=== PATIENT | female | born 1985 | race Caucasian/White ===

== ENCOUNTER 2017-10-14 01:24 | Emergency (ER) | payer OTHER, MEDICAID, SELFPAY | END 2017-10-14 04:27 | disposition home or self-care (01) | PROVIDERS: Emergency Provider Emergency Medicine; Family Provider Family Medicine; PCP Family Medicine; Visit Provider Emergency Medicine | DX: M79.601 Pain in right arm (principal) | CPT/HCPCS: 36415; 80048; 85025; 85379; 93971; 99058; 99284 ==

== ENCOUNTER 2017-10-14 15:19 | Emergency (ER) | payer OTHER, MEDICAID, SELFPAY | END 2017-10-14 18:41 | disposition home or self-care (01) | PROVIDERS: Emergency Provider Emergency Medicine; Family Provider Family Medicine; PCP Family Medicine; Visit Provider Emergency Medicine | DX: J18.1 Lobar pneumonia, unspecified organism (principal) | CPT/HCPCS: 36415; 71260; 71275; 80048; 81025; 82550; 85025; 85379; 93971; 96374; 96375; 99058; 99284; J1885; J2060 ==

== ENCOUNTER → 2018-03-28 10:26 | Outpatient (CLI) | payer OTHER, MEDICAID, SELFPAY ==
--- NOTE | 2018-03-28 | DI.US.S_ITS ---
PROCEDURE: US OB >= 14 WEEKS FETUS INDICATIONS: SIZING AND DATES OUTSIDE/PRIOR DATING DATA: Last menstrual period (LMP): 12/21/17 LMP-based estimated date of delivery ([place]): 09/27/17 First dating scan (date and location): 03/28/18 Estimated date of delivery ([place]) from first dating scan: 09/25/18 TECHNIQUE: Real-time scanning was performed of the fetus, with image documentation and biometric measurements. COMPARISON: [facility], , PELVIC COMPLETE, 07/19/2017, 14:23. FINDINGS: General: A single living intrauterine gestation is present. Presentation: Variable Placenta: Placental position is grossly within normal limits, without previa. Amniotic fluid index: Grossly within normal limits heart rate: 141 beats per minute. Maternal cervical canal: 3.1 cm long. Normal lower limit is 2.5 cm. biometrics: Biparietal diameter: 2.8 cm 14 weeks 6 days Head circumference: 9.9 cm 14 weeks 4 days Abdominal circumference: 8.2 cm 14 weeks 4 days Femur length: 1.2 cm 13 weeks 3 days Estimated gestational age from initial scan: not applicable. Composite gestational age from present scan: 14 weeks one days Estimated weight and percentile: Not obtained Measurement variability for biometric dating: +/- 7 days from 14 weeks to 15 weeks 6 days gestation, +/- 10 days from 16 weeks to 21 weeks 6 days gestation, +/- 2 weeks from 22 weeks to 27 weeks 6 days gestation, +/- 3 weeks for 28 weeks gestation or later. weight reference: 4500 g or EFW >90/95% is considered macrosomia or large for gestational age. EFW <10% is small for gestational age. EFW 5% or less is considered intra-uterine growth restriction. Anatomic survey: Neuro: Ventricles are non-dilated at less than 10 mm. Cisterna magna is normal at 3-11 mm. Cerebellum is normal in size and morphology. Nuchal skin fold: Normal at less than 6 mm between 14-21 weeks gestational age. Face: Nose and lips, facial profile are normal. Spine: No evidence for spina bifida. Heart: 4-chambered heart is present, with normal ventricular outflow tracts. Diaphragm: Diaphragm is intact. Stomach: Left-sided stomach is present. Kidneys: No hydronephrosis. Normal is less than 5 mm in 2nd trimester, less than 7 mm in 3rd trimester. Cord: 3-vessel cord has orthotopic insertion. Bladder: Normal in size. Extremities: All 4 extremities identified. IMPRESSION: 1. Single live intrauterine with ultrasound gestational age of 14 weeks 1 days, corresponding to ultrasound [place] of 09/25/18. 2. Followup imaging at 20-22 weeks for dates and anatomy. Dictated by: Dot Samuels M.D. on 03/28/2018 at 16:37 Approved by: Dot Samuels M.D. on 03/28/2018 at 16:43
[2018-03-28 12:11] LABS: Add Manual Diff / Slide Review NO; Basophils Percent Auto 0.2 % (0-2); Hematocrit 36.7 % (36-46); Hemoglobin 12.4 g/dL (12.0-16.0); Lymphocytes Percent Auto 20.7 % (25-40); Mean Corpuscular HGB Conc 33.7 % (30-36); Mean Corpuscular Hemoglobin 28.9 PG (26-34); Mean Corpuscular Volume 85.8 fL (80-100); Neutrophils Absolute Auto 8000 /uL (3000-5900); Neutrophils Percent Auto 71.1 % (50-75); Platelet Count 264 X10^3/uL (150-400); Red Blood Cell Count 4.28 X10^6/uL (4.0-5.2); White Blood Cell Count 11.3 X10^3/uL (4.5-11.0)
[2018-03-28 12:18] LABS: Hemoglobin A1C% w Est Avg Glu 5.5 % (4.0-6.0)
[2018-03-28 15:10] LABS: Hepatitis B Surface Antigen NEGATIVE s/c (NEGATIVE)
[2018-03-28 15:27] LABS: HIV 1 and 2 Antibody NEGATIVE (NEGATIVE); Hep C Virus Ab w/Reflex Quant NEGATIVE s/c (NEGATIVE)
[2018-04-03 13:35] LABS: Rapid Plasma Reagin NON-REACTIVE
== END ==
PROVIDERS: Visit Provider Nurse Practitioner Women's Health
DX: Z11.59 Encounter for screening for other viral diseases (principal); Z13.79 Encounter for other screening for genetic and chromosomal anomalies; Z3A.14 14 weeks gestation of pregnancy
CPT/HCPCS: 36415; 76811; 83036; 85025; 86592; 86703; 86762; 86803; 86850; 86900; 86901; 87340

== ENCOUNTER 2018-03-31 13:03 | Emergency (ER) | payer OTHER, MEDICAID, SELFPAY ==
[2018-03-31 13:05] VITALS: BP 105/60; PULSE 77; RESP 13; TEMP 36.4; O2SAT 99
--- NOTE | 2018-03-31 14:03 | DI.US.S_ITS ---
PROCEDURE: US OB >= 14 WEEKS FETUS INDICATIONS: PAIN IN ; PATIENT HAS LOW ABDOMINAL WALL MESH OUTSIDE/PRIOR DATING DATA: Last menstrual period (LMP): 12/21/17. LMP-based estimated date of delivery ([place]): 09/27/18. First dating scan (date and location): 03/28/18. Estimated date of delivery ([place]) from first dating scan: 09/25/18. TECHNIQUE: Real-time scanning was performed of the fetus, with image documentation and biometric measurements. Endovaginal scanning: Not needed. COMPARISON: [facility], OB >= 14 WEEKS FETUS, 03/28/2018, 10:59. FINDINGS: General: A single living intrauterine gestation is present. Presentation: Mobile. heart rate: 152 beats per minute. biometrics: Biparietal diameter: 3.2 cm, 15 weeks 6 days Head circumference: 11.6 cm, 15 weeks 5 days Abdominal circumference: 9.4 cm, 15 weeks 4 days Femur length: 1.3 cm, 13 weeks 6 days Estimated gestational age from initial scan: 14 weeks 4 days Composite gestational age from present scan: 15 weeks 2 days Measurement variability for biometric dating: +/- 7 days from 14 weeks to 15 weeks 6 days gestation, +/- 10 days from 16 weeks to 21 weeks 6 days gestation, +/- 2 weeks from 22 weeks to 27 weeks 6 days gestation, +/- 3 weeks for 28 weeks gestation or later. weight reference: 4500 g or EFW >90/95% is considered macrosomia or large for gestational age. EFW <10% is small for gestational age. EFW 5% or less is considered intra-uterine growth restriction. Anatomic survey: Neuro: Ventricles are non-dilated at less than 10 mm. Cisterna magna is normal at 3-11 mm. Cerebellum is normal in size and morphology. Nuchal skin fold: Normal at less than 6 mm between 14-21 weeks gestational age. Face: Nose and lips, facial profile are normal. Spine: No evidence for spina bifida. Heart: 4-chambered heart is present, with normal ventricular outflow tracts. Diaphragm: Diaphragm is intact. Stomach: Left-sided stomach is present. Kidneys: No hydronephrosis. Normal is less than 5 mm in 2nd trimester, less than 7 mm in 3rd trimester. Cord: 3-vessel cord has orthotopic insertion. Bladder: Normal in size. Extremities: All 4 extremities identified. IMPRESSION: Appropriate interval growth, no anomalies seen. The quality of visualization on early OB ultrasound for anatomic detail is limited and for this reason a followup OB ultrasound is recommended at approximately 21 weeks of gestational age. Dictated by: Juan Hughes M.D. on 03/31/2018 at 15:24 Approved by: Juan Hughes M.D. on 03/31/2018 at 15:28
[2018-03-31 14:28] LABS: Add Manual Diff / Slide Review NO; Basophils Percent Auto 0.4 % (0-2); Eosinophils Percent Auto 0.2 % (2-4); Hematocrit 35.7 % (36-46); Hemoglobin 11.9 g/dL (12.0-16.0); Lymphocytes Percent Auto 21.2 % (25-40); Mean Corpuscular HGB Conc 33.5 % (30-36); Mean Corpuscular Hemoglobin 29.1 PG (26-34); Monocytes Percent Auto 7.6 % (3-14); Neutrophils Absolute Auto 8000 /uL (3000-5900); Neutrophils Percent Auto 70.6 % (50-75); Platelet Count 250 X10^3/uL (150-400); Red Cell Distribution Width 14.8 % (11.6-14.8); White Blood Cell Count 11.3 X10^3/uL (4.5-11.0)
--- NOTE | 2018-03-31 14:32 | PC.NURSE ---
patient concerned about the mesh she has in place from previous . Denies bleeding or discharge
[2018-03-31 14:40] LABS: Alanine Aminotransferase 18 IU/L (9-52); Albumin 3.6 g/dL (3.5-5.0); Albumin Globulin Ratio 1.2 (1.0-2.8); Alkaline Phosphatase 51 U/L (38-126); Amylase 55 U/L (30-110); Aspartate Aminotransferase 15 IU/L (14-36); Bilirubin Total 0.2 mg/dL (0.2-1.3); Blood Urea Nitrogen 3 mg/dL (7-17); Calcium 8.9 mg/dL (8.4-10.2); Carbon Dioxide 24 mmol/L (22-32); Chloride 105 mmol/L (98-107); Estimated Glomerular Filt Rate > 60.0 mL/min (>60); Globulin 2.9 g/dL (1.7-4.1); Glucose 93 mg/dL (70-100); HEMOLYSIS < 15 (0-50); Lipase 107 U/L (23-300); Potassium 3.8 mmol/L (3.4-5.1); Sodium 138 mmol/L (137-145); Total Protein 6.5 g/dL (6.3-8.2)
--- NOTE | 2018-03-31 14:43 | ED.PREGNANCY ---
HPI - <MARV Krueger-BC - Last Filed: 03/31/18 18:33> General Chief complaint: OB/Uterine Contractions Stated complaint: 14 weeks , has mesh, having pain Time Seen by Provider: 03/31/18 13:40 Source: patient Mode of arrival: ambulatory Limitations: no limitations History of Present Illness HPI Narrative: Patient is a 32-year-old female who presents with chief complaint of abdominal pain. She states she is about 14 weeks and is having pain across her lower abdomen. She complains of some urinary urgency but no dysuria or frequency. She complains of occasional incontinence. She denies any fevers, nausea, vomiting, diarrhea. She states she normally has loose stools. She denies constipation. She does have a history of mesh implantation is seeing a special OBGYN in [place]. She denies any vaginal discharge or STI risk. She thinks her lower abd pain is due to mesh. Related Data Previous Rx's Medication Instructions Recorded oxycodone-acetaminophen [Percocet] 1 tab PO Q4-6H PRN #10 tab 03/31/18 Allergies Allergy/AdvReac Type Severity Reaction Status Date / Time soy [SOY] Allergy Severe ANAPHYLAXIS Unverified 10/22/17 14:00 adhesive [ADHESIVE] Allergy Unknown PAINFUL TO Unverified 10/22/17 14:00 SKIN, BURST BLOOD VESSELS aripiprazole [From ABILIFY] AdvReac Severe PSYCHOSIS Unverified 10/22/17 14:00 hydromorphone [From DILAUDID] AdvReac Severe VISUAL Unverified 10/22/17 14:00 AND AUDITORIAL HALLUCINATION zolpidem [From AMBIEN] AdvReac Severe RESTLESSNES Unverified 10/22/17 14:00 S morphine [MORPHINE] AdvReac Intermediate HALLUCINATI Unverified 10/22/17 14:00 ONS promethazine [From PHENERGAN] AdvReac Intermediate UNPLEASANT Unverified 10/22/17 14:00 FEELING codeine [CODEINE] AdvReac Mild NAUSEA AND Unverified 10/22/17 14:00 VOMITING Review of Systems <WILLIAM KruegerBC - Last Filed: 03/31/18 18:33> Review of Systems GENERAL: Denies chills, fatigue, malaise, fever, sweats. HEENT: Denies sinus pain, ear pain, sore throat, difficulty swallowing, dizziness. RESPIRATORY: Denies dyspnea, cough, wheezing, hemoptysis, sputum. CARDIOVASCULAR: Denies chest pain, palpitations, orthopnea, edema, GASTROINTESTINAL: See HPI : See HPI MUSCULOSKELETAL: denies weakness, joint pain, or bony pain SKIN: Denies rash, skin lesions, or other NEUROLOGIC: Denies weakness, headache, numbness, change in speech, confusion, seizures, incoordination. PSYCHIATRIC: No concerning psychosocial issues. 12 point review of systems is negative except for those stated above Exam <Rona Rabago, NICKEL PLATER-BC - Last Filed: 03/31/18 18:33> Narrative Exam Narrative: GENERAL: This is a well-nourished, well-developed patient, in no acute distress HEAD: Atraumatic. Normocephalic. No temporal or scalp tenderness. EYES: Pupils equal round and reactive. Extraocular motions intact. No scleral icterus. No injection or drainage. ENT: Nose without bleeding, purulent drainage or septal hematoma. Throat without erythema, tonsillar hypertrophy or exudate. Uvula midline. Airway patent. NECK: Trachea midline. No JVD or lymphadenopathy. Supple, nontender, no meningeal signs. CARDIOVASCULAR: Regular rate and rhythm without murmurs, gallops, or rubs. RESPIRATORY: Clear to auscultation. Breath sounds equal bilaterally. No wheezes, rales, or rhonchi. GASTROINTESTINAL: Abdomen soft, nondistended. No hepato-splenomegaly, or palpable masses. No guarding. Diffuse tenderness over previous scar her lower right quadrant lower left quadrant. No guarding noted. No pain at McBurney's point. EXTREMITIES: No clubbing, cyanosis, or edema. No joint tenderness, effusion, or edema noted. BACK: Nontender without deformity or crepitance. No flank tenderness. NEURO: AOx3. SKIN: No rash or erythema. No rash erythema or ecchymosis noted lower abdomen. Initial Vital Signs Initial Vital Signs: Vital Signs Temperature 97.5 F L 03/31/18 13:05 Pulse Rate 77 03/31/18 13:05 Respiratory Rate 13 03/31/18 13:05 Blood Pressure 105/60 03/31/18 13:05 Pulse Oximetry 99 03/31/18 13:05 <DO Luca Rivera Last Filed: 04/01/18 08:06> Initial Vital Signs Initial Vital Signs: Vital Signs Temperature 97.5 F L 03/31/18 13:05 Pulse Rate 77 03/31/18 13:05 Respiratory Rate 13 03/31/18 13:05 Blood Pressure 105/60 03/31/18 13:05 Pulse Oximetry 99 03/31/18 13:05 Course <YANICK Krueger - Last Filed: 03/31/18 18:33> Course Narrative: I checked on the patient several times throughout her stay in the emergency department. I discussed at length with her the risks and benefits of using Percocet for her abdominal pain at this point time. I discussed that over use could complicate her delivery and place her child at risk. I also encouraged her to stop smoking and eating marijuana during her . Patient elected to do trial of Percocet for abdominal pain. She plans on following up with her primary care provider next week. Orders Ordered: ED Orders 03/31/18 14:03 US OB >= 14 weeks Fetus Stat 03/31/18 14:16 Urinalysis and Microscopic Stat 03/31/18 14:17 Amylase Stat Complete Blood Count AUTO DIFF Stat Comprehensive Metabolic Panel Stat HCG Quantitative Stat Lipase Stat Vital Signs - 8 hr 03/31/18 13:05 Temperature 97.5 F L Pulse Rate 77 Respiratory Rate 13 Blood Pressure 105/60 Pulse Oximetry 99 <Yasmin Benavidez DO - Last Filed: 04/01/18 08:06> Orders Ordered: ED Orders 03/31/18 14:03 US OB >= 14 weeks Fetus Stat 03/31/18 14:16 Urinalysis and Microscopic Stat 03/31/18 14:17 Amylase Stat Complete Blood Count AUTO DIFF Stat Comprehensive Metabolic Panel Stat HCG Quantitative Stat Lipase Stat Vital Signs - 8 hr 03/31/18 13:05 Temperature 97.5 F L Pulse Rate 77 Respiratory Rate 13 Blood Pressure 105/60 Pulse Oximetry 99 MDM - OB/Uterine Contractions <YANICK Krueger - Last Filed: 03/31/18 18:33> Lab Data Result diagrams: 03/31/18 14:17 03/31/18 14:17 Lab Results 03/31/18 03/31/18 03/31/18 Range/Units 14:16 14:17 14:17 WBC 11.3 H (4.5-11.0) X10^3/uL RBC 4.10 (4.0-5.2) X10^6/uL Hgb 11.9 L (12.0-16.0) g/dL Hct 35.7 L (36-46) % MCV 87.0 (80-100) fL MCH 29.1 (26-34) PG MCHC 33.5 (30-36) % RDW 14.8 (11.6-14.8) % Plt Count 250 (150-400) X10^3/uL Neut % (Auto) 70.6 (50-75) % Lymph % (Auto) 21.2 L (25-40) % Love % (Auto) 7.6 (3-14) % Eos % (Auto) 0.2 L (2-4) % Baso % (Auto) 0.4 (0-2) % Neut # (Auto) 8000 H (8060-1666) /uL Sodium 138 (137-145) mmol/L Potassium 3.8 (3.4-5.1) mmol/L Chloride 105 (98-107) mmol/L Carbon Dioxide 24 (22-32) mmol/L BUN 3 L (7-17) mg/dL Creatinine 0.50 L (0.52-1.04) mg/dL Estimated GFR > 60.0 (>60) mL/min BUN/Creatinine Ratio 6.0 (6-22) Glucose 93 (70-100) mg/dL Calcium 8.9 (8.4-10.2) mg/dL Total Bilirubin 0.2 (0.2-1.3) mg/dL AST 15 (14-36) IU/L ALT 18 (9-52) IU/L Alkaline Phosphatase 51 (38-126) U/L Total Protein 6.5 (6.3-8.2) g/dL Albumin 3.6 (3.5-5.0) g/dL Globulin 2.9 (1.7-4.1) g/dL Albumin/Globulin Ratio 1.2 (1.0-2.8) Amylase 55 (30-110) U/L Lipase 107 (23-300) U/L HCG, Quant 56697 mIU/mL Urine Color Yellow Urine Appearance Clear Urine pH 6.5 (4.5-8.0) Ur Specific [place] 1.020 (1.000-1.035) Urine Protein Negative (Negative) Urine Glucose (UA) Negative (Normal) g/dL Urine Ketones Trace H (NEGATIVE) Urine Occult Blood Negative (Negative) Urine Nitrate Negative (Negative) Urine Bilirubin Negative (NEGATIVE) Urine Urobilinogen 0.2 (0.2) E.U./dL Ur Leukocyte Esterase Negative (NEGATIVE) Urine RBC 0-1/hpf (0-5/HPF) Urine WBC 0-1/hpf (0-5/HPF) Ur Squamous Epith Cells 0-1 /hpf Calcium Oxalate Crystal Few H (None) Urine Bacteria Occasional (0-1) (None) Hyaline Casts 0-1/lpf (None) Urine Mucus 1+ H (Negative) Ur Culture Indicated? Cult not indicated Micro UA Comment Not Reportable Imaging Data US - abdomen: Radiologist's impression: [address] [address] Ultrasound Report Signed Patient: Honey Gomez LMR#: [id number] : 1985Acct:[id number] Age/Sex: 32 / FDate of Service: 03/31/18 Loc: ED Accession Number: [id number] Procedure: OB >= 14 weeks Fetus Ordering Provider: Rona Rabago PROCEDURE: US OB >= 14 WEEKS FETUS INDICATIONS: PAIN IN ; PATIENT HAS LOW ABDOMINAL WALL MESH OUTSIDE/PRIOR DATING DATA: Last menstrual period (LMP): 12/21/17. LMP-based estimated date of delivery ([place]): 09/27/18. First dating scan (date and location): 03/28/18. Estimated date of delivery ([place]) from first dating scan: 09/25/18. TECHNIQUE: Real-time scanning was performed of the fetus, with image documentation and biometric measurements. Endovaginal scanning: Not needed. COMPARISON: [facility], OB >= 14 WEEKS FETUS, 03/28/2018, 10:59. FINDINGS: General: A single living intrauterine gestation is present. Presentation: Mobile. heart rate: 152 beats per minute. biometrics: Biparietal diameter: 3.2 cm, 15 weeks 6 days Head circumference: 11.6 cm, 15 weeks 5 days Abdominal circumference: 9.4 cm, 15 weeks 4 days Femur length: 1.3 cm, 13 weeks 6 days Estimated gestational age from initial scan: 14 weeks 4 days Composite gestational age from present scan: 15 weeks 2 days Measurement variability for biometric dating: +/- 7 days from 14 weeks to 15 weeks 6 days gestation, +/- 10 days from 16 weeks to 21 weeks 6 days gestation, +/- 2 weeks from 22 weeks to 27 weeks 6 days gestation, +/- 3 weeks for 28 weeks gestation or later. weight reference: 4500 g or EFW >90/95% is considered macrosomia or large for gestational age. EFW <10% is small for gestational age. EFW 5% or less is considered intra-uterine growth restriction. Anatomic survey: Neuro: Ventricles are non-dilated at less than 10 mm. Cisterna magna is normal at 3-11 mm. Cerebellum is normal in size and morphology. Nuchal skin fold: Normal at less than 6 mm between 14-21 weeks gestational age. Face: Nose and lips, facial profile are normal. Spine: No evidence for spina bifida. Heart: 4-chambered heart is present, with normal ventricular outflow tracts. Diaphragm: Diaphragm is intact. Stomach: Left-sided stomach is present. Kidneys: No hydronephrosis. Normal is less than 5 mm in 2nd trimester, less than 7 mm in 3rd trimester. Cord: 3-vessel cord has orthotopic insertion. Bladder: Normal in size. Extremities: All 4 extremities identified. IMPRESSION: Appropriate interval growth, no anomalies seen. The quality of visualization on early OB ultrasound for anatomic detail is limited and for this reason a followup OB ultrasound is recommended at approximately 21 weeks of gestational age. Dictated by: Juan Hughes M.D. on 03/31/2018 at 15:24 Approved by: Juan Hughes M.D. on 03/31/2018 at 15:28 [facility] Narrative Medical decision making narrative: Patient presents with abdominal pain that she believes is related to mesh. She had normal CBC, beta-hCG, CMP lipase and amylase. Her ultrasound came back grossly normal. Patient declined STI testing a pelvic exam in the emergency department. She elected for a trial of pain medication while she waits to follow up with her OBGYN and billing him. I discussed the risks and benefits this medication with her including addiction, constipation, etc. Patient had no questions or concerns upon discharge and ambulated steadily to check out. <Yasmin Benavidez, DO - Last Filed: 04/01/18 08:06> Lab Data Lab Results 03/31/18 03/31/18 03/31/18 Range/Units 14:16 14:17 14:17 WBC 11.3 H (4.5-11.0) X10^3/uL RBC 4.10 (4.0-5.2) X10^6/uL Hgb 11.9 L (12.0-16.0) g/dL Hct 35.7 L (36-46) % MCV 87.0 (80-100) fL MCH 29.1 (26-34) PG MCHC 33.5 (30-36) % RDW 14.8 (11.6-14.8) % Plt Count 250 (150-400) X10^3/uL Neut % (Auto) 70.6 (50-75) % Lymph % (Auto) 21.2 L (25-40) % Love % (Auto) 7.6 (3-14) % Eos % (Auto) 0.2 L (2-4) % Baso % (Auto) 0.4 (0-2) % Neut # (Auto) 8000 H (5922-7239) /uL Sodium 138 (137-145) mmol/L Potassium 3.8 (3.4-5.1) mmol/L Chloride 105 (98-107) mmol/L Carbon Dioxide 24 (22-32) mmol/L BUN 3 L (7-17) mg/dL Creatinine 0.50 L (0.52-1.04) mg/dL Estimated GFR > 60.0 (>60) mL/min BUN/Creatinine Ratio 6.0 (6-22) Glucose 93 (70-100) mg/dL Calcium 8.9 (8.4-10.2) mg/dL Total Bilirubin 0.2 (0.2-1.3) mg/dL AST 15 (14-36) IU/L ALT 18 (9-52) IU/L Alkaline Phosphatase 51 (38-126) U/L Total Protein 6.5 (6.3-8.2) g/dL Albumin 3.6 (3.5-5.0) g/dL Globulin 2.9 (1.7-4.1) g/dL Albumin/Globulin Ratio 1.2 (1.0-2.8) Amylase 55 (30-110) U/L Lipase 107 (23-300) U/L HCG, Quant 78697 mIU/mL Urine Color Yellow Urine Appearance Clear Urine pH 6.5 (4.5-8.0) Ur Specific [place] 1.020 (1.000-1.035) Urine Protein Negative (Negative) Urine Glucose (UA) Negative (Normal) g/dL Urine Ketones Trace H (NEGATIVE) Urine Occult Blood Negative (Negative) Urine Nitrate Negative (Negative) Urine Bilirubin Negative (NEGATIVE) Urine Urobilinogen 0.2 (0.2) E.U./dL Ur Leukocyte Esterase Negative (NEGATIVE) Urine RBC 0-1/hpf (0-5/HPF) Urine WBC 0-1/hpf (0-5/HPF) Ur Squamous Epith Cells 0-1 /hpf Calcium Oxalate Crystal Few H (None) Urine Bacteria Occasional (0-1) (None) Hyaline Casts 0-1/lpf (None) Urine Mucus 1+ H (Negative) Ur Culture Indicated? Cult not indicated Micro UA Comment Not Reportable Discharge Plan Departure Patient Disposition: Home Clinical Impression: Abdominal pain affecting Discharge Date/Time: 03/31/18 16:34 Interventions: ED Discharge Assessment Last Done: 03/31/18 16:33 Instructions: DI for Abdominal Pain-Adult, DI for Abdominal Pain -- Early Activity Restrictions/Additional Instructions: Your lab work came back largely normal today. Your ultrasound looks good. 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 I have given you a small pain medication prescription. Please use this judiciously. Please do not use it all as your baby can be born addicted. Please stop using marijuana during . Please follow-up as scheduled next week and come back to the emergency department for urgent matters. Prescriptions: New oxycodone-acetaminophen [Percocet] 5-325 mg tablet 1 tab PO Q4-6H PRN (Reason: pain) Qty: 10 RF: 0 <Yasmin Benavidez DO - Last Filed: 04/01/18 08:06> Cosign ED Attending Melida Attestation: I was immediately available in the department for consultation. Documentation has been reviewed. I agree with assessment and plan.
--- NOTE | 2018-03-31 14:49 | ED_ITS ---
HPI - <MARV Krueger-BC - Last Filed: 03/31/18 18:33> General Chief complaint: OB/Uterine Contractions Stated complaint: 14 weeks , has mesh, having pain Time Seen by Provider: 03/31/18 13:40 Source: patient Mode of arrival: ambulatory Limitations: no limitations History of Present Illness HPI Narrative: Patient is a 32-year-old female who presents with chief complaint of abdominal pain. She states she is about 14 weeks and is having pain across her lower abdomen. She complains of some urinary urgency but no dysuria or frequency. She complains of occasional incontinence. She denies any fevers, nausea, vomiting, diarrhea. She states she normally has loose stools. She denies constipation. She does have a history of mesh implantation is seeing a special OBGYN in [place]. She denies any vaginal discharge or STI risk. She thinks her lower abd pain is due to mesh. Related Data Previous Rx's Medication Instructions Recorded oxycodone-acetaminophen [Percocet] 1 tab PO Q4-6H PRN #10 tab 03/31/18 Allergies Allergy/AdvReac Type Severity Reaction Status Date / Time soy [SOY] Allergy Severe ANAPHYLAXIS Unverified 10/22/17 14:00 adhesive [ADHESIVE] Allergy Unknown PAINFUL TO Unverified 10/22/17 14:00 SKIN, BURST BLOOD VESSELS aripiprazole [From ABILIFY] AdvReac Severe PSYCHOSIS Unverified 10/22/17 14:00 hydromorphone [From DILAUDID] AdvReac Severe VISUAL Unverified 10/22/17 14:00 AND AUDITORIAL HALLUCINATION zolpidem [From AMBIEN] AdvReac Severe RESTLESSNES Unverified 10/22/17 14:00 S morphine [MORPHINE] AdvReac Intermediate HALLUCINATI Unverified 10/22/17 14:00 ONS promethazine [From PHENERGAN] AdvReac Intermediate UNPLEASANT Unverified 14:00 FEELING codeine [CODEINE] AdvReac Mild NAUSEA AND Unverified 10/22/17 14:00 VOMITING Review of Systems <WILLIAM KruegerBC - Last Filed: 03/31/18 18:33> Review of Systems GENERAL: Denies chills, fatigue, malaise, fever, sweats. HEENT: Denies sinus pain, ear pain, sore throat, difficulty swallowing, dizziness. RESPIRATORY: Denies dyspnea, cough, wheezing, hemoptysis, sputum. CARDIOVASCULAR: Denies chest pain, palpitations, orthopnea, edema, GASTROINTESTINAL: See HPI : See HPI MUSCULOSKELETAL: denies weakness, joint pain, or bony pain SKIN: Denies rash, skin lesions, or other NEUROLOGIC: Denies weakness, headache, numbness, change in speech, confusion, seizures, incoordination. PSYCHIATRIC: No concerning psychosocial issues. 12 point review of systems is negative except for those stated above Exam <Rona Rabago, PLASTER TENDER-BC - Last Filed: 03/31/18 18:33> Narrative Exam Narrative: GENERAL: This is a well-nourished, well-developed patient, in no acute distress HEAD: Atraumatic. Normocephalic. No temporal or scalp tenderness. EYES: Pupils equal round and reactive. Extraocular motions intact. No scleral icterus. No injection or drainage. ENT: Nose without bleeding, purulent drainage or septal hematoma. Throat without erythema, tonsillar hypertrophy or exudate. Uvula midline. Airway patent. NECK: Trachea midline. No JVD or lymphadenopathy. Supple, nontender, no meningeal signs. CARDIOVASCULAR: Regular rate and rhythm without murmurs, gallops, or rubs. RESPIRATORY: Clear to auscultation. Breath sounds equal bilaterally. No wheezes , rales, or rhonchi. GASTROINTESTINAL: Abdomen soft, nondistended. No hepato-splenomegaly, or palpable masses. No guarding. Diffuse tenderness over previous scar her lower right quadrant lower left quadrant. No guarding noted. No pain at McBurney's point. EXTREMITIES: No clubbing, cyanosis, or edema. No joint tenderness, effusion, or edema noted. BACK: Nontender without deformity or crepitance. No flank tenderness. NEURO: AOx3. SKIN: No rash or erythema. No rash erythema or ecchymosis noted lower abdomen. Initial Vital Signs Initial Vital Signs: Vital Signs Temperature 97.5 F L 03/31/18 13:05 Pulse Rate 77 03/31/18 13:05 Respiratory Rate 13 03/31/18 13:05 Blood Pressure 105/60 03/31/18 13:05 Pulse Oximetry 99 03/31/18 13:05 <DO Luca Rivera Last Filed: 04/01/18 08:06> Initial Vital Signs Initial Vital Signs: Vital Signs Temperature 97.5 F L 03/31/18 13:05 Pulse Rate 77 03/31/18 13:05 Respiratory Rate 13 03/31/18 13:05 Blood Pressure 105/60 03/31/18 13:05 Pulse Oximetry 99 03/31/18 13:05 Course <YANICK Krueger - Last Filed: 03/31/18 18:33> Course Narrative: I checked on the patient several times throughout her stay in the emergency department. I discussed at length with her the risks and benefits of using Percocet for her abdominal pain at this point time. I discussed that over use could complicate her delivery and place her child at risk. I also encouraged her to stop smoking and eating marijuana during her . Patient elected to do trial of Percocet for abdominal pain. She plans on following up with her primary care provider next week. Orders Ordered: ED Orders 03/31/18 14:03 US OB >= 14 weeks Fetus Stat 03/31/18 14:16 Urinalysis and Microscopic Stat 03/31/18 14:17 Amylase Stat Complete Blood Count AUTO DIFF Stat Comprehensive Metabolic Panel Stat HCG Quantitative Stat Lipase Stat Vital Signs - 8 hr 03/31/18 13:05 Temperature 97.5 F L Pulse Rate 77 Respiratory Rate 13 Blood Pressure 105/60 Pulse Oximetry 99 <Yasmin Benavidez DO - Last Filed: 04/01/18 08:06> Orders Ordered: ED Orders 03/31/18 14:03 US OB >= 14 weeks Fetus Stat 03/31/18 14:16 Urinalysis and Microscopic Stat 03/31/18 14:17 Amylase Stat Complete Blood Count AUTO DIFF Stat Comprehensive Metabolic Panel Stat HCG Quantitative Stat Lipase Stat Vital Signs - 8 hr 03/31/18 13:05 Temperature 97.5 F L Pulse Rate 77 Respiratory Rate 13 Blood Pressure 105/60 Pulse Oximetry 99 MDM - OB/Uterine Contractions <YANICK Krueger - Last Filed: 03/31/18 18:33> Lab Data Result diagrams: 03/31/18 14:17 03/31/18 14:17 Lab Results 03/31/18 03/31/18 03/31/18 Range/Units 14:16 14:17 14:17 WBC 11.3 H (4.5-11.0) X10^3/uL RBC 4.10 (4.0-5.2) X10^6/uL Hgb 11.9 L (12.0-16.0) g/dL Hct 35.7 L (36-46) % MCV 87.0 (80-100) fL MCH 29.1 (26-34) PG MCHC 33.5 (30-36) % RDW 14.8 (11.6-14.8) % Plt Count 250 (150-400) X10^3/uL Neut % (Auto) 70.6 (50-75) % Lymph % (Auto) 21.2 L (25-40) % Childress % (Auto) 7.6 (3-14) % Eos % (Auto) 0.2 L (2-4) % Baso % (Auto) 0.4 (0-2) % Neut # (Auto) 8000 H (6507-6652) /uL Sodium 138 (137-145) mmol/L Potassium 3.8 (3.4-5.1) mmol/L Chloride 105 (98-107) mmol/L Carbon Dioxide 24 (22-32) mmol/L BUN 3 L (7-17) mg/dL Creatinine 0.50 L (0.52-1.04) mg/dL Estimated GFR > 60.0 (>60) mL/min BUN/Creatinine Ratio 6.0 (6-22) Glucose 93 (70-100) mg/dL Calcium 8.9 (8.4-10.2) mg/dL Total Bilirubin 0.2 (0.2-1.3) mg/dL AST 15 (14-36) IU/L ALT 18 (9-52) IU/L Alkaline Phosphatase 51 (38-126) U/L Total Protein 6.5 (6.3-8.2) g/dL Albumin 3.6 (3.5-5.0) g/dL Globulin 2.9 (1.7-4.1) g/dL Albumin/Globulin Ratio 1.2 (1.0-2.8) Amylase 55 (30-110) U/L Lipase 107 (23-300) U/L HCG, Quant 67553 mIU/mL Urine Color Yellow Urine Appearance Clear Urine pH 6.5 (4.5-8.0) Ur Specific [place] 1.020 (1.000-1.035) Urine Protein Negative (Negative) Urine Glucose (UA) Negative (Normal) g/dL Urine Ketones Trace H (NEGATIVE) Urine Occult Blood Negative (Negative) Urine Nitrate Negative (Negative) Urine Bilirubin Negative (NEGATIVE) Urine Urobilinogen 0.2 (0.2) E.U./dL Ur Leukocyte Esterase Negative (NEGATIVE) Urine RBC 0-1/hpf (0-5/HPF) Urine WBC 0-1/hpf (0-5/HPF) Ur Squamous Epith Cells 0-1 /hpf Calcium Oxalate Crystal Few H (None) Urine Bacteria Occasional (0-1) (None) Hyaline Casts 0-1/lpf (None) Urine Mucus 1+ H (Negative) Ur Culture Indicated? Cult not indicated Micro UA Comment Not Reportable Imaging Data US - abdomen: Radiologist's impression: [address] [address] Ultrasound Report Signed Patient: Honey Gomez LMR#: [id number] : 1985Acct:[id number] Age/Sex: 32 / FDate of Service: 03/31/18 Loc: ED Accession Number: [id number] Procedure: OB >= 14 weeks Fetus Ordering Provider: Rona Rabago PROCEDURE: US OB >= 14 WEEKS FETUS INDICATIONS: PAIN IN ; PATIENT HAS LOW ABDOMINAL WALL MESH OUTSIDE/PRIOR DATING DATA: Last menstrual period (LMP): 12/21/17. LMP-based estimated date of delivery ([place]): 09/27/18. First dating scan (date and location): 03/28/18. Estimated date of delivery ([place]) from first dating scan: 09/25/18. TECHNIQUE: Real-time scanning was performed of the fetus, with image documentation and biometric measurements. Endovaginal scanning: Not needed. COMPARISON: [facility], OB >= 14 WEEKS FETUS, 03/28/2018, 10:59. FINDINGS: General: A single living intrauterine gestation is present. Presentation: Mobile. heart rate: 152 beats per minute. biometrics: Biparietal diameter: 3.2 cm, 15 weeks 6 days Head circumference: 11.6 cm, 15 weeks 5 days Abdominal circumference: 9.4 cm, 15 weeks 4 days Femur length: 1.3 cm, 13 weeks 6 days Estimated gestational age from initial scan: 14 weeks 4 days Composite gestational age from present scan: 15 weeks 2 days Measurement variability for biometric dating: +/- 7 days from 14 weeks to 15 weeks 6 days gestation, +/- 10 days from 16 weeks to 21 weeks 6 days gestation, +/- 2 weeks from 22 weeks to 27 weeks 6 days gestation, +/- 3 weeks for 28 weeks gestation or later. weight reference: 4500 g or EFW >90/95% is considered macrosomia or large for gestational age. EFW <10% is small for gestational age. EFW 5% or less is considered intra-uterine growth restriction. Anatomic survey: Neuro: Ventricles are non-dilated at less than 10 mm. Cisterna magna is normal at 3-11 mm. Cerebellum is normal in size and morphology. Nuchal skin fold: Normal at less than 6 mm between 14-21 weeks gestational age. Face: Nose and lips, facial profile are normal. Spine: No evidence for spina bifida. Heart: 4-chambered heart is present, with normal ventricular outflow tracts. Diaphragm: Diaphragm is intact. Stomach: Left-sided stomach is present. Kidneys: No hydronephrosis. Normal is less than 5 mm in 2nd trimester, less than 7 mm in 3rd trimester. Cord: 3-vessel cord has orthotopic insertion. Bladder: Normal in size. Extremities: All 4 extremities identified. IMPRESSION: Appropriate interval growth, no anomalies seen. The quality of visualization on early OB ultrasound for anatomic detail is limited and for this reason a followup OB ultrasound is recommended at approximately 21 weeks of gestational age. Dictated by: Juan Hughes M.D. on 03/31/2018 at 15:24 Approved by: Juan Hughes M.D. on 03/31/2018 at 15:28 [facility] Narrative Medical decision making narrative: Patient presents with abdominal pain that she believes is related to mesh. She had normal CBC, beta-hCG, CMP lipase and amylase. Her ultrasound came back grossly normal. Patient declined STI testing a pelvic exam in the emergency department. She elected for a trial of pain medication while she waits to follow up with her OBGYN and billing him. I discussed the risks and benefits this medication with her including addiction, constipation, etc. Patient had no questions or concerns upon discharge and ambulated steadily to check out. <Yasmin Benavidez, DO - Last Filed: 04/01/18 08:06> Lab Data Lab Results 03/31/18 03/31/18 03/31/18 Range/Units 14:16 14:17 14:17 WBC 11.3 H (4.5-11.0) X10^3/uL RBC 4.10 (4.0-5.2) X10^6/uL Hgb 11.9 L (12.0-16.0) g/dL Hct 35.7 L (36-46) % MCV 87.0 (80-100) fL MCH 29.1 (26-34) PG MCHC 33.5 (30-36) % RDW 14.8 (11.6-14.8) % Plt Count 250 (150-400) X10^3/uL Neut % (Auto) 70.6 (50-75) % Lymph % (Auto) 21.2 L (25-40) % Childress % (Auto) 7.6 (3-14) % Eos % (Auto) 0.2 L (2-4) % Baso % (Auto) 0.4 (0-2) % Neut # (Auto) 8000 H (4373-4730) /uL Sodium 138 (137-145) mmol/L Potassium 3.8 (3.4-5.1) mmol/L Chloride 105 (98-107) mmol/L Carbon Dioxide 24 (22-32) mmol/L BUN 3 L (7-17) mg/dL Creatinine 0.50 L (0.52-1.04) mg/dL Estimated GFR > 60.0 (>60) mL/min BUN/Creatinine Ratio 6.0 (6-22) Glucose 93 (70-100) mg/dL Calcium 8.9 (8.4-10.2) mg/dL Total Bilirubin 0.2 (0.2-1.3) mg/dL AST 15 (14-36) IU/L ALT 18 (9-52) IU/L Alkaline Phosphatase 51 (38-126) U/L Total Protein 6.5 (6.3-8.2) g/dL Albumin 3.6 (3.5-5.0) g/dL Globulin 2.9 (1.7-4.1) g/dL Albumin/Globulin Ratio 1.2 (1.0-2.8) Amylase 55 (30-110) U/L Lipase 107 (23-300) U/L HCG, Quant 77069 mIU/mL Urine Color Yellow Urine Appearance Clear Urine pH 6.5 (4.5-8.0) Ur Specific [place] 1.020 (1.000-1.035) Urine Protein Negative (Negative) Urine Glucose (UA) Negative (Normal) g/dL Urine Ketones Trace H (NEGATIVE) Urine Occult Blood Negative (Negative) Urine Nitrate Negative (Negative) Urine Bilirubin Negative (NEGATIVE) Urine Urobilinogen 0.2 (0.2) E.U./dL Ur Leukocyte Esterase Negative (NEGATIVE) Urine RBC 0-1/hpf (0-5/HPF) Urine WBC 0-1/hpf (0-5/HPF) Ur Squamous Epith Cells 0-1 /hpf Calcium Oxalate Crystal Few H (None) Urine Bacteria Occasional (0-1) (None) Hyaline Casts 0-1/lpf (None) Urine Mucus 1+ H (Negative) Ur Culture Indicated? Cult not indicated Micro UA Comment Not Reportable Discharge Plan Departure Patient Disposition: Home Clinical Impression: Abdominal pain affecting Discharge Date/Time: 03/31/18 16:34 Interventions: ED Discharge Assessment Last Done: 03/31/18 16:33 Instructions: DI for Abdominal Pain-Adult, DI for Abdominal Pain -- Early Activity Restrictions/Additional Instructions: Your lab work came back largely normal today. Your ultrasound looks good. Please follow-up with her biometric screener as scheduled next week. I have given you a small pain medication prescription. Please use this judiciously. Please do not use it all as your baby can be born addicted. Please stop using marijuana during . Please follow-up as scheduled next week and come back to the emergency department for urgent matters. Prescriptions: New oxycodone-acetaminophen [Percocet] 5-325 mg tablet 1 tab PO Q4-6H PRN (Reason: pain) Qty: 10 RF: 0 <Yasmin Benavidez DO - Last Filed: 04/01/18 08:06> Cosign ED Attending Mel[place] Attestation: I was immediately available in the department for consultation. Documentation has been reviewed. I agree with assessment and plan.
[2018-03-31 15:13] LABS: Appearance Urine UA CLEAR; Bilirubin Urine UA NEGATIVE (NEGATIVE); Color Urine UA YELLOW; Glucose Urine UA NEGATIVE (Normal); Ketones Urine UA TRACE (NEGATIVE); Leukocyte Esterase Urine UA NEGATIVE (NEGATIVE); Nitrite Urine UA Negative (Negative); Occult Blood Urine UA NEGATIVE (Negative); Protein Urine UA NEGATIVE (Negative); Urobilinogen Urine UA 0.2 E.U./dL (0.2); pH Urine UA 6.5 (4.5-8.0)
[2018-03-31 15:23] LABS: Bacteria Urine Occasional (0-1); Calcium Oxalate Crystals Urine Few; Culture Indicated Urine Cult Not Indicated; Hyaline Casts Urine 0-1/LPF; Mucus Urine 1+ (Negative); RBC Urine 0-1/HPF (0-5/HPF); Squamous Epithelial Cell Urine 0-1 /HPF; WBC Urine 0-1/HPF (0-5/HPF)
[2018-03-31 16:27] LABS: HCG Quantitative /Beta subunit 45288 mIU/mL
--- NOTE | 2018-04-03 17:10 | PC.NURSE ---
follow up call, wrong number
== END 2018-03-31 16:34 | disposition home or self-care (01) ==
PROVIDERS: Emergency Provider Nurse Practitioner Family
DX: O26.891 Other specified pregnancy related conditions, first trimester (principal); R10.9 Unspecified abdominal pain; Z3A.14 14 weeks gestation of pregnancy
CPT/HCPCS: 36415; 76811; 80053; 81001; 82150; 83690; 84702; 85025; 99282; 99284

== ENCOUNTER → 2018-07-10 08:21 | Outpatient (CLI) | payer OTHER, MEDICAID, SELFPAY ==
[2018-07-10 10:18] LABS: Add Manual Diff / Slide Review NO; Basophils Absolute Auto 300 /uL (0-100); Basophils Percent Auto 1.2 % (0-2); Eosinophils Absolute Auto 0 /uL (0-450); Hematocrit 35.9 % (36-46); Hemoglobin 11.7 g/dL (12.0-16.0); Lymphocytes Absolute Auto 3500 /uL (1100-4500); Lymphocytes Percent Auto 17.1 % (25-40); Mean Corpuscular HGB Conc 32.5 % (30-36); Mean Corpuscular Hemoglobin 28.6 PG (26-34); Mean Corpuscular Volume 87.8 fL (80-100); Monocytes Absolute Auto 1600 /uL (0-900); Monocytes Percent Auto 7.6 % (3-14); Neutrophils Absolute Auto 15100 /uL (1500-7000); Neutrophils Percent Auto 74.1 % (50-75); Platelet Count 319 X10^3/uL (150-400); Red Blood Cell Count 4.09 X10^6/uL (4.0-5.2); Red Cell Distribution Width 13.3 % (11.6-14.8); White Blood Cell Count 20.4 X10^3/uL (4.5-11.0)
[2018-07-10 11:09] LABS: GTT (PREG) 1 Hour PP 50gm Dose 124 mg/dL (76-139)
== END ==
DX: O09.90 Supervision of high risk pregnancy, unspecified, unspecified trimester (principal)
CPT/HCPCS: 36415; 82950; 85025

== ENCOUNTER 2018-07-18 18:35 | Outpatient (CLI) | payer OTHER, MEDICAID, SELFPAY ==
--- NOTE | 2018-07-19 12:50 | PM.OBTRLD ---
Visit Information Visit Information Date of evaluation: 07/18/18 On-call OB Provider: Barbara Ibarra Reason for Evaluation: Yes non-stress test Comments/Additional reasons for admission: Patient came in for evaluation after syncopal episode Vital Signs Vital Signs: Blood pressure 113/57, pulse 67 PFSH Surgical History Status post breast lumpectomy Status post delivery Status post dilation and curettage Status post laparoscopy Status post surgery (04/10/17) Family History Brother Age: 36 Cerebral palsy, unspecified type Father Heart disease Essential hypertension High cholesterol Mental health problem Mother Age: 67 Diabetes mellitus Mental health problem Grandmother Alzheimer's disease Mental health problem Sister Mental health problem Sister Age: 43 Mental health problem Social History Smoking Status: Current every day smoker Evaluation Evaluation Baseline heart rate: 140 Variability: Moderate (11-25) monitor accelerations: Present monitor decelerations: Absent Uterine Contraction Intensity: Mild Category of Tracing: I Comments: Patient with uterine irritability on the monitor but not felt by patient or palpable Diagnosis, Plan/Disposition Final Diagnosis (1) Syncopal episodes: Current Visit: No Status: Acute Problem details: Patient had bent over for lifting and had a mild syncopal episode she came in for evaluation but feels fine (2) 30 weeks gestation of : Current Visit: No Status: Acute Plan/Disposition Plan: Patient is reassured she is to push fluids and follow up with her primary OB provider. OB Disposition: home
== END 2018-07-18 19:45 | disposition home or self-care (01) ==
LOC: OB 07-22 11:15
PROVIDERS: Visit Provider Obstetrics & Gynecology
DX: O26.893 Other specified pregnancy related conditions, third trimester (principal); R55 Syncope and collapse; Z3A.30 30 weeks gestation of pregnancy; O99.333 Smoking (tobacco) complicating pregnancy, third trimester
CPT/HCPCS: 59025; G0378; G0379

== ENCOUNTER 2019-06-23 13:30 | Emergency (ER) | payer OTHER, MEDICAID, SELFPAY ==
[2019-06-23 13:31] VITALS: BP 130/81; PULSE 99; RESP 16; TEMP 36.4; O2SAT 100; BMI 28.3
--- NOTE | 2019-06-23 14:01 | ED.PSYCH ---
HPI - Psych <Jong Castellon DIGITAL ACCOUNT SUPERVISOR - Last Filed: 06/23/19 22:46> General Chief Complaint: Psychiatric Symptoms Stated Complaint: suicidal thoughts Time Seen by Provider: 06/23/19 13:40 Source: patient and police Mode of arrival: Ambulatory Limitations: no limitations History of Present Illness HPI Narrative: This is a 34-year-old female, smoker, who presents to ED with suicidal ideation. Patient was escorted by the [place] traffic police officer after day were contacted by patient's ex- after she expressed suicidal ideations. Patient has history of suicidal ideation without attempts, depression, anxiety, PTSD, depression. Patient is currently 9.5 month and she is currently taking hydroxyzine 25 mg t.i.d. as needed, Invega injection for last 3 months, Zyprexa 10 mg QHS and reports not feeling well with Invega injection and has been having suicidal ideation for last 3 months. Patient states she has LRO with [facility] but has not been honest with them about suicidal thoughts. Patient reports she has been stressed out and overwhelmed from whole life. She currently lives alone and has 2 children who are with their fathers. Patient reports had used smoking weeds earlier today and denies using ETOH. Patient is requesting to transfer to [facility] for mental health evaluation and treatment stating I'm just exhausted and anxious. Patient reports she thought about plans by taking a bottle of Trazodone which she has access to it at home. Related Data Home Medications Medication Instructions Recorded Confirmed hydroxyzine pamoate 50 mg PO TID 06/23/19 06/23/19 olanzapine 10 mg PO BEDTIME 06/23/19 06/23/19 paliperidone palmitate [Invega 156 mg IM QMONTH 06/23/19 06/23/19 Sustenna] Allergies Allergy/AdvReac Type Severity Reaction Status Date / Time soy [SOY] Allergy Severe ANAPHYLAXIS Verified 06/23/19 13:35 adhesive [ADHESIVE] Allergy Unknown PAINFUL TO Verified 06/23/19 13:35 SKIN, BURST BLOOD VESSELS aripiprazole [From ABILIFY] AdvReac Severe PSYCHOSIS Verified 06/23/19 13:35 hydromorphone [From DILAUDID] AdvReac Severe VISUAL Verified 06/23/19 13:35 AND AUDITORIAL HALLUCINATION zolpidem [From AMBIEN] AdvReac Severe RESTLESSNES Verified 06/23/19 13:35 S morphine [MORPHINE] AdvReac Intermediate HALLUCINATI Verified 06/23/19 13:35 ONS promethazine [From PHENERGAN] AdvReac Intermediate UNPLEASANT Verified 06/23/19 13:35 FEELING codeine [CODEINE] AdvReac Mild NAUSEA AND Verified 06/23/19 13:35 VOMITING Review of Systems <STONEY Carias - Last Filed: 06/23/19 22:46> Review of Systems Narrative: General: Denies fever, chills, fatigue, malaise, sweats. HEENT: Denies sinus pain, ear pain, sore throat, difficulty swallowing, dizziness. Respiratory: Denies dyspnea, cough, wheezing, hemoptysis, sputum. Cardiovascular: Denies chest pain, palpitations, orthopnea, edema. Gastrointestinal: Denies nausea, vomiting, abdominal pain, diarrhea, constipation, melena. : Denies dysuria, frequency, incontinence, hematuria, urinary retention. Musculoskeletal: Denies weakness, joint pain or bony pain. Skin: Denies rash, skin lesions, or other. Neurologic: Denies weakness, headache, numbness, change in speech, confusion, seizures, incoordination. Psychiatric: Suicidal ideations without homicidal ideations. 12-point review of systems is negative except for those stated above. Patient History <STONEY Carias - Last Filed: 06/23/19 22:46> Medical History Suicidal ideation (Acute) Surgical History Status post breast lumpectomy Status post delivery Status post dilation and curettage Status post laparoscopy Status post surgery (04/10/17) Family History Brother Age: 37 Cerebral palsy, unspecified type Father Heart disease Essential hypertension High cholesterol Mental health problem Mother Age: 68 Diabetes mellitus Mental health problem Grandmother Alzheimer's disease Mental health problem Sister Mental health problem Sister Age: 44 Mental health problem Social History Smoking Status: Current every day smoker Smoking Status: Current every day smoker tobacco type: cigarettes Substance Use Type: marijuana Exam <STONEY Carias - Last Filed: 06/23/19 22:46> Narrative Exam Narrative: General appearance: well developed, well nourished, in no acute distress. Head: normocephalic, atraumatic, no scalp lesions, non-tender. ENT: Bilateral auditory canals and tympanic membranes clear. Hearing grossly intact. Nose without bleeding, purulent discharge, septal hematoma or deviation. Turbinate without erythema or swelling. Facial sinuses nontender to palpate. Mucous membrane moist, no mucosal lesion. Throat without erythema, tonsillar hypertrophy or exudate. Uvula in midline, airway patent. Neck/Thyroid: neck supple, full range of motion, no visible masses or meningeal signs. No JVD, non-tender without lymphadenopathy. Skin: no suspicious rashes, lesions over visible areas. Warm and dry and appropriate color for ethnicity. Heart: no clubbing, no cyanosis, no edema. S1 and S2 normal. RRR w/o murmurs, clicks, or bruits. Lungs: Breathing even and unlabored. No stridor. No accessory muscles used. Able to speak in full sentences. Chest: normal shape and expansion. Abdomen: non-obese, non-distended. Neurologic: alert and oriented. Cognitive exam, SCRAPE GATHERER and PNS grossly intact on informal exam. Psych: good eye contact, flat affect, cooperative. Contracted verbally for safety. Initial Vital Signs Initial Vital Signs: Vital Signs Temperature 97.5 F L 06/23/19 13:31 Pulse Rate 99 H 06/23/19 13:31 Respiratory Rate 16 06/23/19 13:31 Blood Pressure 130/81 06/23/19 13:31 Pulse Oximetry 100 06/23/19 13:31 Psych Speech and Movement: speech clear and slowed movement Thought Process: normal Thought Content: normal Judgment: judgment good <Chana Wagner MD - Last Filed: 06/29/19 07:22> Initial Vital Signs Initial Vital Signs: Vital Signs Temperature 97.5 F L 06/23/19 13:31 Pulse Rate 99 H 06/23/19 13:31 Respiratory Rate 16 06/23/19 13:31 Blood Pressure 130/81 06/23/19 13:31 Pulse Oximetry 100 06/23/19 13:31 Scores <Jong JoleneSTONEY pineda - Last Filed: 06/23/19 22:46> GCS [place] coma scale eye opening: Spontaneous Cindy coma scale verbal response: Orientated Cindy coma scale motor response: Obey commands Cindy coma scale total score: 15 Course <Jong JoleneSTONEY pineda - Last Filed: 06/23/19 22:46> Orders Ordered: Discontinued Medications Acetaminophen (Tylenol) 975 mg PO NOW ONE Stop: 06/23/19 14:47 Last Admin: 06/23/19 15:12 Dose: 975 mg Documented by: PILAR Hydroxyzine Pamoate (Vistaril) 25 mg PO NOW ONE Stop: 06/23/19 16:43 Last Admin: 06/23/19 16:45 Dose: 25 mg Documented by: PILAR Hydroxyzine Pamoate (Vistaril) 25 mg PO NOW ONE Stop: 06/23/19 17:56 Last Admin: 06/23/19 17:59 Dose: 25 mg Documented by: PILAR Ibuprofen (Advil) 400 mg PO NOW ONE Stop: 06/23/19 14:47 Last Admin: 06/23/19 15:13 Dose: 400 mg Documented by: PILAR Vital Signs Vital signs: Vital Signs - 8 hr 06/23/19 18:14 Pulse Rate 95 H Blood Pressure [Right Arm] 113/72 Pulse Oximetry 98 <Chana Wagner MD - Last Filed: 06/29/19 07:22> Orders Ordered: Discontinued Medications Acetaminophen (Tylenol) 975 mg PO NOW ONE Stop: 06/23/19 14:47 Last Admin: 06/23/19 15:12 Dose: 975 mg Documented by: PILAR Hydroxyzine Pamoate (Vistaril) 25 mg PO NOW ONE Stop: 06/23/19 16:43 Last Admin: 06/23/19 16:45 Dose: 25 mg Documented by: PILAR Hydroxyzine Pamoate (Vistaril) 25 mg PO NOW ONE Stop: 06/23/19 17:56 Last Admin: 06/23/19 17:59 Dose: 25 mg Documented by: PILAR Ibuprofen (Advil) 400 mg PO NOW ONE Stop: 06/23/19 14:47 Last Admin: 06/23/19 15:13 Dose: 400 mg Documented by: KDWIGHT Vital Signs Vital signs: Vital Signs - 8 hr 06/23/19 18:14 Pulse Rate 95 H Blood Pressure [Right Arm] 113/72 Pulse Oximetry 98 MDM - Psych <STONEY Carias - Last Filed: 06/23/19 22:46> Differential Diagnosis Differential diagnosis: Likely suicidal ideation, depression and acute anxiety Medical Records Attestation: I reviewed the patient's medical records. Lab Data Attestation: I reviewed the patient's lab results. Result diagrams: 06/23/19 14:12 06/23/19 14:12 Labs: Lab Results 06/23/19 06/23/19 06/23/19 Range/Units 14:12 14:12 14:12 WBC 11.8 H (4.5-11.0) X10^3/uL RBC 4.77 (4.0-5.2) X10^6/uL Hgb 13.1 (12.0-16.0) g/dL Hct 40.1 (36-46) % MCV 84.1 (80-100) fL MCH 27.6 (26-34) PG MCHC 32.8 (30-36) % RDW 16.7 H (11.6-14.8) % Plt Count 360 (150-400) X10^3/uL Neut % (Auto) 70.0 (50-75) % Lymph % (Auto) 20.4 L (25-40) % [place] % (Auto) 8.1 (3-14) % Eos % (Auto) 0.9 L (2-4) % Baso % (Auto) 0.6 (0-2) % Neut # (Auto) 8200 H (4042-6030) /uL Lymph # (Auto) 2400 (7063-2370) /uL [place] # (Auto) 1000 H (0-900) /uL Eos # (Auto) 100 (0-450) /uL Baso # (Auto) 100 (0-100) /uL Sodium 144 (137-145) mmol/L Potassium 3.7 (3.4-5.1) mmol/L Chloride 100 (98-107) mmol/L Carbon Dioxide 34 H (22-32) mmol/L BUN 8 (7-17) mg/dL Creatinine 0.70 (0.52-1.04) mg/dL Estimated GFR > 60.0 (>60) mL/min BUN/Creatinine Ratio 11.4 (6-22) Glucose 105 H (70-100) mg/dL Calcium 10.1 (8.4-10.2) mg/dL Total Bilirubin 0.4 (0.2-1.3) mg/dL AST 25 (14-36) IU/L ALT 12 (<35) IU/L Alkaline Phosphatase 78 (38-126) U/L Total Protein 8.2 (6.3-8.2) g/dL Albumin 4.8 (3.5-5.0) g/dL Globulin 3.4 (1.7-4.1) g/dL Albumin/Globulin Ratio 1.4 (1.0-2.8) TSH 0.84 (0.47-4.68) uIU/mL Free T4 0.75 L (0.78-2.19) ng/dL Urine Color Urine Appearance Urine pH (4.5-8.0) Ur Specific [place] (1.000-1.035) Urine Protein (Negative) Urine Glucose (UA) (Negative) g/dL Urine Ketones (NEGATIVE) Urine Occult Blood (Negative) Urine Nitrate (Negative) Urine Bilirubin (NEGATIVE) Urine Urobilinogen (0.2) E.U./dL Ur Leukocyte Esterase (NEGATIVE) Urine RBC (0-5/HPF) Urine WBC (0-5/HPF) Ur Squamous Epith Cells (0-5/HPF) Urine Bacteria (None) Ur Culture Indicated? Urine Test (Negative) Salicylates < 1.0 (<20) mg/dL U Opiates 300ng/mL cut (Negative) Ur Oxycodone Screen (Negative) Urine Methadone Screen (Negative) Acetaminophen < 10 L (10-30) ug/mL Ur Barbiturates Screen (Negative) U Tricyclic Antidepress (Negative) Ur Phencyclidine Scrn (Negative) Ur Amphetamines Screen (Negative) U Methamphetamines Scrn (Negative) Ur MDMA Scrn (Ecstasy) (Negative) U Benzodiazepines Scrn (Negative) Urine Cocaine Screen (Negative) U Marijuana (THC) Screen (Negative) Ethyl Alcohol < 10 ( - 10) mg/dL 06/23/19 06/23/19 06/23/19 Range/Units 15:08 15:08 15:08 WBC (4.5-11.0) X10^3/uL RBC (4.0-5.2) X10^6/uL Hgb (12.0-16.0) g/dL Hct (36-46) % MCV (80-100) fL MCH (26-34) PG MCHC (30-36) % RDW (11.6-14.8) % Plt Count (150-400) X10^3/uL Neut % (Auto) (50-75) % Lymph % (Auto) (25-40) % [place] % (Auto) (3-14) % Eos % (Auto) (2-4) % Baso % (Auto) (0-2) % Neut # (Auto) (8914-0895) /uL Lymph # (Auto) (3328-1511) /uL [place] # (Auto) (0-900) /uL Eos # (Auto) (0-450) /uL Baso # (Auto) (0-100) /uL Sodium (137-145) mmol/L Potassium (3.4-5.1) mmol/L Chloride (98-107) mmol/L Carbon Dioxide (22-32) mmol/L BUN (7-17) mg/dL Creatinine (0.52-1.04) mg/dL Estimated GFR (>60) mL/min BUN/Creatinine Ratio (6-22) Glucose (70-100) mg/dL Calcium (8.4-10.2) mg/dL Total Bilirubin (0.2-1.3) mg/dL AST (14-36) IU/L ALT (<35) IU/L Alkaline Phosphatase (38-126) U/L Total Protein (6.3-8.2) g/dL Albumin (3.5-5.0) g/dL Globulin (1.7-4.1) g/dL Albumin/Globulin Ratio (1.0-2.8) TSH (0.47-4.68) uIU/mL Free T4 (0.78-2.19) ng/dL Urine Color Yellow Urine Appearance Clear Urine pH 7.0 (4.5-8.0) Ur Specific [place] <=1.005 (1.000-1.035) Urine Protein Negative (Negative) Urine Glucose (UA) Negative (Negative) g/dL Urine Ketones Negative (NEGATIVE) Urine Occult Blood Trace-lysed (Negative) Urine Nitrate Negative (Negative) Urine Bilirubin Negative (NEGATIVE) Urine Urobilinogen 0.2 (0.2) E.U./dL Ur Leukocyte Esterase Negative (NEGATIVE) Urine RBC None seen (0-5/HPF) Urine WBC None seen (0-5/HPF) Ur Squamous Epith Cells 1-5 /hpf (0-5/HPF) Urine Bacteria None seen (None) Ur Culture Indicated? Cult not indicated Urine Test Negative (Negative) Salicylates (<20) mg/dL U Opiates 300ng/mL cut Negative (Negative) Ur Oxycodone Screen Negative (Negative) Urine Methadone Screen Negative (Negative) Acetaminophen (10-30) ug/mL Ur Barbiturates Screen Negative (Negative) U Tricyclic Antidepress Negative (Negative) Ur Phencyclidine Scrn Negative (Negative) Ur Amphetamines Screen Negative (Negative) U Methamphetamines Scrn Negative (Negative) Ur MDMA Scrn (Ecstasy) Negative (Negative) U Benzodiazepines Scrn Negative (Negative) Urine Cocaine Screen Negative (Negative) U Marijuana (THC) Screen Positive H (Negative) Ethyl Alcohol ( - 10) mg/dL MDM Narrative Medical decision making narrative: This is a 34-year-old female who has history of depression, acute anxiety, depression who's currently taking hydroxyzine, Invega, and Zyprexa for her symptoms presents to ED with acute suicidal ideation by taking a bottle of trazodone that she has at home. Patient states she has overwhelmed and stressed out with multiple things in her life. Patient was escorted by Cherrie BALDERAS after they got a phone call from her ex- after she expressed her SI. Patient had history of SI but never acted upon as suicidal attempts. Patient denies homicidal ideations. Patient has 2 children who are with their fathers and patient lives alone. Patient is known to [facility] department and is hoping to get admitted in inpatient facility for an evaluation and treatment. Patient was medicated with Tylenol and Motrin for the headache after she was evaluated and patient requested something for her anxiety and medicated with hydroxyzine as her outpatient medication. Patient was evaluated by in-house protective services social worker and placement is being looked at. Addendum: Pt was kindly [facility] to [facility] for inpatient evaluation and treatment. Patient is currently waiting for transfer and all required transfer document have been completed. <Chana Wagner MD - Last Filed: 06/29/19 07:22> Lab Data Labs: Lab Results 06/23/19 06/23/19 06/23/19 Range/Units 14:12 14:12 14:12 WBC 11.8 H (4.5-11.0) X10^3/uL RBC 4.77 (4.0-5.2) X10^6/uL Hgb 13.1 (12.0-16.0) g/dL Hct 40.1 (36-46) % MCV 84.1 (80-100) fL MCH 27.6 (26-34) PG MCHC 32.8 (30-36) % RDW 16.7 H (11.6-14.8) % Plt Count 360 (150-400) X10^3/uL Neut % (Auto) 70.0 (50-75) % Lymph % (Auto) 20.4 L (25-40) % [place] % (Auto) 8.1 (3-14) % Eos % (Auto) 0.9 L (2-4) % Baso % (Auto) 0.6 (0-2) % Neut # (Auto) 8200 H (5687-1720) /uL Lymph # (Auto) 2400 (8813-9644) /uL [place] # (Auto) 1000 H (0-900) /uL Eos # (Auto) 100 (0-450) /uL Baso # (Auto) 100 (0-100) /uL Sodium 144 (137-145) mmol/L Potassium 3.7 (3.4-5.1) mmol/L Chloride 100 (98-107) mmol/L Carbon Dioxide 34 H (22-32) mmol/L BUN 8 (7-17) mg/dL Creatinine 0.70 (0.52-1.04) mg/dL Estimated GFR > 60.0 (>60) mL/min BUN/Creatinine Ratio 11.4 (6-22) Glucose 105 H (70-100) mg/dL Calcium 10.1 (8.4-10.2) mg/dL Total Bilirubin 0.4 (0.2-1.3) mg/dL AST 25 (14-36) IU/L ALT 12 (<35) IU/L Alkaline Phosphatase 78 (38-126) U/L Total Protein 8.2 (6.3-8.2) g/dL Albumin 4.8 (3.5-5.0) g/dL Globulin 3.4 (1.7-4.1) g/dL Albumin/Globulin Ratio 1.4 (1.0-2.8) TSH 0.84 (0.47-4.68) uIU/mL Free T4 0.75 L (0.78-2.19) ng/dL Urine Color Urine Appearance Urine pH (4.5-8.0) Ur Specific [place] (1.000-1.035) Urine Protein (Negative) Urine Glucose (UA) (Negative) g/dL Urine Ketones (NEGATIVE) Urine Occult Blood (Negative) Urine Nitrate (Negative) Urine Bilirubin (NEGATIVE) Urine Urobilinogen (0.2) E.U./dL Ur Leukocyte Esterase (NEGATIVE) Urine RBC (0-5/HPF) Urine WBC (0-5/HPF) Ur Squamous Epith Cells (0-5/HPF) Urine Bacteria (None) Ur Culture Indicated? Urine Test (Negative) Salicylates < 1.0 (<20) mg/dL U Opiates 300ng/mL cut (Negative) Ur Oxycodone Screen (Negative) Urine Methadone Screen (Negative) Acetaminophen < 10 L (10-30) ug/mL Ur Barbiturates Screen (Negative) U Tricyclic Antidepress (Negative) Ur Phencyclidine Scrn (Negative) Ur Amphetamines Screen (Negative) U Methamphetamines Scrn (Negative) Ur MDMA Scrn (Ecstasy) (Negative) U Benzodiazepines Scrn (Negative) Urine Cocaine Screen (Negative) U Marijuana (THC) Screen (Negative) Ethyl Alcohol < 10 ( - 10) mg/dL 06/23/19 06/23/19 06/23/19 Range/Units 15:08 15:08 15:08 WBC (4.5-11.0) X10^3/uL RBC (4.0-5.2) X10^6/uL Hgb (12.0-16.0) g/dL Hct (36-46) % MCV (80-100) fL MCH (26-34) PG MCHC (30-36) % RDW (11.6-14.8) % Plt Count (150-400) X10^3/uL Neut % (Auto) (50-75) % Lymph % (Auto) (25-40) % [place] % (Auto) (3-14) % Eos % (Auto) (2-4) % Baso % (Auto) (0-2) % Neut # (Auto) (8053-2281) /uL Lymph # (Auto) (3882-6615) /uL [place] # (Auto) (0-900) /uL Eos # (Auto) (0-450) /uL Baso # (Auto) (0-100) /uL Sodium (137-145) mmol/L Potassium (3.4-5.1) mmol/L Chloride (98-107) mmol/L Carbon Dioxide (22-32) mmol/L BUN (7-17) mg/dL Creatinine (0.52-1.04) mg/dL Estimated GFR (>60) mL/min BUN/Creatinine Ratio (6-22) Glucose (70-100) mg/dL Calcium (8.4-10.2) mg/dL Total Bilirubin (0.2-1.3) mg/dL AST (14-36) IU/L ALT (<35) IU/L Alkaline Phosphatase (38-126) U/L Total Protein (6.3-8.2) g/dL Albumin (3.5-5.0) g/dL Globulin (1.7-4.1) g/dL Albumin/Globulin Ratio (1.0-2.8) TSH (0.47-4.68) uIU/mL Free T4 (0.78-2.19) ng/dL Urine Color Yellow Urine Appearance Clear Urine pH 7.0 (4.5-8.0) Ur Specific [place] <=1.005 (1.000-1.035) Urine Protein Negative (Negative) Urine Glucose (UA) Negative (Negative) g/dL Urine Ketones Negative (NEGATIVE) Urine Occult Blood Trace-lysed (Negative) Urine Nitrate Negative (Negative) Urine Bilirubin Negative (NEGATIVE) Urine Urobilinogen 0.2 (0.2) E.U./dL Ur Leukocyte Esterase Negative (NEGATIVE) Urine RBC None seen (0-5/HPF) Urine WBC None seen (0-5/HPF) Ur Squamous Epith Cells 1-5 /hpf (0-5/HPF) Urine Bacteria None seen (None) Ur Culture Indicated? Cult not indicated Urine Test Negative (Negative) Salicylates (<20) mg/dL U Opiates 300ng/mL cut Negative (Negative) Ur Oxycodone Screen Negative (Negative) Urine Methadone Screen Negative (Negative) Acetaminophen (10-30) ug/mL Ur Barbiturates Screen Negative (Negative) U Tricyclic Antidepress Negative (Negative) Ur Phencyclidine Scrn Negative (Negative) Ur Amphetamines Screen Negative (Negative) U Methamphetamines Scrn Negative (Negative) Ur MDMA Scrn (Ecstasy) Negative (Negative) U Benzodiazepines Scrn Negative (Negative) Urine Cocaine Screen Negative (Negative) U Marijuana (THC) Screen Positive H (Negative) Ethyl Alcohol ( - 10) mg/dL Discharge Plan Departure Patient Disposition: [facility] Clinical Impression: Depression with suicidal ideation Discharge Date/Time: 06/23/19 22:01 Prescriptions: No Action hydroxyzine pamoate 50 mg capsule 50 mg PO TID RF: 0 olanzapine 10 mg tablet 10 mg PO BEDTIME RF: 0 Invega Sustenna 156 mg/mL syringe 156 mg IM QMONTH RF: 0
--- NOTE | 2019-06-23 14:04 | PC.NURSE ---
pt cooperative at this time.
[2019-06-23 14:20] LABS: Add Manual Diff / Slide Review NO; Basophils Absolute Auto 100 /uL (0-100); Basophils Percent Auto 0.6 % (0-2); Eosinophils Absolute Auto 100 /uL (0-450); Eosinophils Percent Auto 0.9 % (2-4); Hematocrit 40.1 % (36-46); Hemoglobin 13.1 g/dL (12.0-16.0); Lymphocytes Absolute Auto 2400 /uL (1100-4500); Lymphocytes Percent Auto 20.4 % (25-40); Mean Corpuscular HGB Conc 32.8 % (30-36); Mean Corpuscular Hemoglobin 27.6 PG (26-34); Mean Corpuscular Volume 84.1 fL (80-100); Monocytes Absolute Auto 1000 /uL (0-900); Monocytes Percent Auto 8.1 % (3-14); Neutrophils Absolute Auto 8200 /uL (1500-7000); Platelet Count 360 X10^3/uL (150-400); Red Blood Cell Count 4.77 X10^6/uL (4.0-5.2); Red Cell Distribution Width 16.7 % (11.6-14.8); White Blood Cell Count 11.8 X10^3/uL (4.5-11.0)
[2019-06-23 14:32] LABS: Acetaminophen < 10 ug/mL (10-30); Alanine Aminotransferase 12 IU/L (<35); Albumin 4.8 g/dL (3.5-5.0); Albumin Globulin Ratio 1.4 (1.0-2.8); Alkaline Phosphatase 78 U/L (38-126); Aspartate Aminotransferase 25 IU/L (14-36); BUN Creatinine Ratio 11.4 (6-22); Bilirubin Total 0.4 mg/dL (0.2-1.3); Blood Urea Nitrogen 8 mg/dL (7-17); Calcium 10.1 mg/dL (8.4-10.2); Carbon Dioxide 34 mmol/L (22-32); Chloride 100 mmol/L (98-107); Estimated Glomerular Filt Rate > 60.0 mL/min (>60); Ethanol (ETOH) < 10 mg/dL; Globulin 3.4 g/dL (1.7-4.1); Glucose 105 mg/dL (70-100); HEMOLYSIS < 15 (0-50); Potassium 3.7 mmol/L (3.4-5.1); Salicylate < 1.0 mg/dL (<20); Sodium 144 mmol/L (137-145); Total Protein 8.2 g/dL (6.3-8.2)
[2019-06-23 15:01] LABS: Free T4, Direct Thyroxine 0.75 ng/dL (0.78-2.19)
[2019-06-23] MEDS: ACETAMINOPHEN 325 MG TABLET 975 MG PO (15:12)
[2019-06-23] MEDS: IBUPROFEN 400 MG TABLET PO (15:13)
[2019-06-23 15:15] LABS: Thyroid Stimulating Hormone 0.84 uIU/mL (0.47-4.68)
[2019-06-23 15:21] LABS: Bacteria Urine None Seen; RBC Urine None Seen (0-5/HPF); WBC Urine None Seen (0-5/HPF)
[2019-06-23 15:24] LABS: Appearance Urine UA CLEAR; Bilirubin Urine UA NEGATIVE (NEGATIVE); Color Urine UA YELLOW; Glucose Urine UA NEGATIVE (Negative); Ketones Urine UA NEGATIVE (NEGATIVE); Leukocyte Esterase Urine UA NEGATIVE (NEGATIVE); Nitrite Urine UA NEGATIVE (Negative); Occult Blood Urine UA TRACE-LYSED (Negative); Protein Urine UA NEGATIVE (Negative); Specific Gravity Urine UA <=1.005 (1.000-1.035); Urobilinogen Urine UA 0.2 E.U./dL (0.2)
[2019-06-23 15:27] LABS: Pregnancy Test Urine Negative (Negative)
[2019-06-23 15:28] LABS: UR Morphine/Opiate cutoff 300 Negative (Negative); Ur Creatinine Normal (Normal); Ur Specific Gravity Normal (Normal); Urine Amphetamines Negative (Negative); Urine Barbiturates Negative (Negative); Urine Benzodiazepines Negative (Negative); Urine Cocaine Negative (Negative); Urine MDMA Negative (Negative); Urine Methadone Negative (Negative); Urine Methamphetamines Negative (Negative); Urine Oxycodone Negative (Negative); Urine Phencyclidine Negative (Negative); Urine Tetrahydrocannabinol Positive (Negative); Urine Tricyclic Antidepressant Negative (Negative); Urine pH Normal (Normal)
[2019-06-23 15:30] LABS: Culture Indicated Urine Cult Not Indicated; Squamous Epithelial Cell Urine 1-5 /HPF (0-5/HPF)
[2019-06-23] MEDS: hydrOXYzine pamoate 25 MG CAPSULE PO ×2 (16:45→17:59)
--- NOTE | 2019-06-23 17:40 | CM.SWNOTE ---
Addendum entered by Arelis Payan R.N. 06/23/19 20:49: CM/RN Spoke with Kate at [facility] and they will accept patient. Dr. Meneses is the accepting physician. Kate is faxing a voluntary form for patient to sign and fax back to kate at [phone] and would like to be contacted once transport is set up for patient for aprox ETA. Kate phone number at [facility] Intake is [phone]. ED board updated and ED staff notified. Arelis Payan RN. Original Note: CM/RN Note: EMR Reviewed: Patient is a 34 yr old female brought into the ED by Cherrie BALDERAS for S.I. Patients Ex- called the police to report patients S.I. When patient arrived at the ED she was alert and oriented x3. When asked patient admitted to . and to having a plan to take a full bottle of trazedone she has at home. Patient is 9.5 months . Prior to becoming patient stated she was prescribed Welbutrin and prosac that helped but D/c these medications when she became . patient has HX of depression, anxiety and previous inpatient psychiatric hospitalizations one after her first child was born in [place], and two others this year in February and March 2019 at [facility]. patient is currently on an LRO with [facility] but states she has not been honest with them about her S.I. when CM/RN asked if patient was ok going in for treatment again she stated she was. Patient stated her SI started after starting Ivega 3 months ago. When asked why she wasn't being honest with [facility] providers about her S.I patient stated she is afraid she will lose her children. CM/Rn contacted [facility] to see if they have a bed available and they currently do. CM/Rn faxed clinicals to [facility] at [phone] attention [facility] due to the fact that their Fax machine isn't working currently. Insurance: [employer] and Medicaid Plan: [facility] is reviewing patients record and CM/Rn will contact to see if they will accept patient in about an hour at 1830. Arelis Payan CM/ PIGGERY WORKER - Parking Lot Attendant Assessment PIGGERY WORKER - Parking Lot Attendant Assessment Start: 06/23/19 17:18 Freq: Status: Active Protocol: Document 06/23/19 17:18 HS (Rec: 06/23/19 17:39 HS [id number]) PIGGERY WORKER/Parking Lot Attendant Assessment Time Spent with Patient Start date 06/23/19 Visit Start Time 16:20 End date 06/23/19 Total time Care Management spent on 90minutes patient visit-in minutes Mental Health Screening Include Onset, Duration, Intensity Presenting Problem Mark presented to the ED brought in by [place] [employer] department. Patients ex- called police due to patients Suicide ideation. Precipitating Event(s) Patient had a baby 9.5 months ago and has been struggling with post depression ever since. mark was on welbutrin and prozac with relief but D/C taking medicaiton when she became . patient stated the S .I became really bad once starting on Invega Injections 3 months ago. Current Behavioral Health Provider(s) Patient is currenlty on an LRO Include Facility, Provider, Ph. # and it is due to on 06/29/2019. Patient stated she has not been honest with them about how she has been feeling . Patient states she is afraid of losing her children. Psych. 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 Patient did admit to taking Majuana earlier today and has for the last few days to help with her anxiety Psychiatric Hospitalizations (date(s)/ Patient stated she was location) hospitalized after her first child was born in [facility] for post depression. she has also been hospitalized at [facility] once in mid february 2019 and again two weeks later in late february early march 2019. Support System(s) Patient states she is close with her methodist in [facility] and does have suportive relations ships with both her ex boyfriend and her Ex . Mental Status Orientation (Person/Place/Time) mark was alert and oriented x3 at time of CM/RN visit. Affect Patient was lying down in bed at time of visit patients affect was sad but axiouse. Thought Processes (Gcqovrl-Vlkdtsdr-Kqsm Paitents thought process is Kawppuqa-Yzzjbjgx-Xnkzpxxvch- logical and coherent Amldfuvaojdikt-Aztikai-Jjxgypigrmiy- Thought Blocking) Speech (Oyxeyw-Dzac-Cccrqzw-Rapid-Soft- Normal to slow speech Loud-Pressured) Motor (Myvowo-Qpkhzvsul-Uvxm-Other) normal Insight (Present-Partially Present- Present Impaired) Judgement (Intact-Impaired) Impaired- patient has not been telling the truth about her S .I with her counselors at [facility]. Memory (Nukyscxcm-Syqswk-Iljcon, Intact and immediate Impaired-Intact) Concentration (Intact-Impaired) intact Attention (Intact-Impaired) intact Behavior (Appropriate-Inappropriate) appropriate Risk Assessment Suicidal Ideation (Plan) Yes: patient currently feels Suicdal with a plan to take a bottle full of meds Homicidal Ideation (Plan) No RN
[2019-06-23 18:14] VITALS: BP 113/72; PULSE 95; O2SAT 98
== END 2019-06-23 22:01 | disposition short-term general hospital (02) ==
PROVIDERS: Emergency Medicine; Emergency Provider Nurse Practitioner Family
DX: F32.9 Major depressive disorder, single episode, unspecified (principal); R45.851 Suicidal ideations; R51 Headache
CPT/HCPCS: 36415; 80053; 80305; 80320; 80329; 81001; 81025; 84439; 84443; 85025; 99283; 99284; G0480

== ENCOUNTER → 2019-07-07 12:08 | Outpatient (CLI) | payer OTHER, MEDICAID, SELFPAY ==
[2019-07-07 14:31] LABS: Alanine Aminotransferase 10 IU/L (<35); Albumin 4.8 g/dL (3.5-5.0); Albumin Globulin Ratio 1.5 (1.0-2.8); Alkaline Phosphatase 87 U/L (38-126); Aspartate Aminotransferase 19 IU/L (14-36); Bilirubin Total 0.4 mg/dL (0.2-1.3); Blood Urea Nitrogen 6 mg/dL (7-17); Calcium 10.2 mg/dL (8.4-10.2); Carbon Dioxide 27 mmol/L (22-32); Chloride 100 mmol/L (98-107); Cholesterol 185 mg/dL (140-199); Estimated Glomerular Filt Rate > 60.0 mL/min (>60); Globulin 3.3 g/dL (1.7-4.1); Glucose 93 mg/dL (70-100); HDL Cholesterol 47 mg/dL (40-60); HEMOLYSIS < 15 (0-50); LDL Cholesterol Calculated 111 mg/dL (<100); Potassium 4.3 mmol/L (3.4-5.1); Sodium 139 mmol/L (137-145); Total Protein 8.1 g/dL (6.3-8.2); Triglycerides 135 mg/dL (35-150)
[2019-07-07 14:57] LABS: TSH w/ Reflex to FT4 0.55 uIU/mL (0.47-4.68)
== END ==
PROVIDERS: PCP Family Medicine; Visit Provider Family Medicine
DX: Z76.89 Persons encountering health services in other specified circumstances (principal); E03.9 Hypothyroidism, unspecified
CPT/HCPCS: 36415; 80053; 80061; 84443

== ENCOUNTER → 2019-08-14 10:31 | Outpatient (CLI) | payer OTHER, MEDICAID, SELFPAY ==
[2019-08-14 11:26] LABS: Add Manual Diff / Slide Review NO; Basophils Absolute Auto 100 /uL (0-100); Basophils Percent Auto 0.4 % (0-2); Eosinophils Absolute Auto 0 /uL (0-450); Eosinophils Percent Auto 0.3 % (2-4); Hematocrit 41.9 % (36-46); Hemoglobin 14.1 g/dL (12.0-16.0); Lymphocytes Absolute Auto 2300 /uL (1100-4500); Lymphocytes Percent Auto 15.6 % (25-40); Mean Corpuscular HGB Conc 33.7 % (30-36); Mean Corpuscular Hemoglobin 27.4 PG (26-34); Mean Corpuscular Volume 81.5 fL (80-100); Monocytes Absolute Auto 1000 /uL (0-900); Monocytes Percent Auto 6.8 % (3-14); Neutrophils Absolute Auto 11500 /uL (1500-7000); Neutrophils Percent Auto 76.9 % (50-75); Platelet Count 370 X10^3/uL (150-400); Red Blood Cell Count 5.14 X10^6/uL (4.0-5.2); Red Cell Distribution Width 15.9 % (11.6-14.8); White Blood Cell Count 14.9 X10^3/uL (4.5-11.0)
[2019-08-14 11:48] LABS: Alanine Aminotransferase 10 IU/L (<35); Albumin 4.9 g/dL (3.5-5.0); Albumin Globulin Ratio 1.6 (1.0-2.8); Alkaline Phosphatase 86 U/L (38-126); Aspartate Aminotransferase 19 IU/L (14-36); BUN Creatinine Ratio 12.9 (6-22); Bilirubin Total 0.4 mg/dL (0.2-1.3); Blood Urea Nitrogen 9 mg/dL (7-17); Calcium 10.5 mg/dL (8.4-10.2); Carbon Dioxide 26 mmol/L (22-32); Chloride 101 mmol/L (98-107); Cholesterol 211 mg/dL (140-199); Estimated Glomerular Filt Rate > 60.0 mL/min (>60); Globulin 3.1 g/dL (1.7-4.1); Glucose 126 mg/dL (70-100); HDL Cholesterol 63 mg/dL (40-60); HEMOLYSIS < 15 (0-50); LDL Cholesterol Calculated 108 mg/dL (<100); Potassium 4.6 mmol/L (3.4-5.1); Sodium 140 mmol/L (137-145); Triglycerides 200 mg/dL (35-150)
[2019-08-14 12:03] LABS: Prolactin 47.3 ng/mL (3.0-18.6)
[2019-08-14 12:12] LABS: Thyroid Stimulating Hormone 1.18 uIU/mL (0.47-4.68)
[2019-08-17 21:29] LABS: Free T4, Direct Thyroxine 1.32 ng/dL (0.78-2.19); T4 Total Thyroxine 7.88 ug/dL (5.5-11.0); T7 (Free Thyroxine Index) 2.49 (1.65-3.89); Triiodothryronine T3 Uptake 31.6 % (23.5-40.5)
== END ==
PROVIDERS: PCP Family Medicine; Referring Provider Nurse Practitioner Psychiatric/Mental Health; Visit Provider Nurse Practitioner Psychiatric/Mental Health
DX: F29 Unspecified psychosis not due to a substance or known physiological condition (principal)
CPT/HCPCS: 36415; 80053; 80061; 84146; 84432; 84443; 85025; 86800

== ENCOUNTER 2019-08-14 13:00 | Emergency (ER) | payer OTHER, MEDICAID, SELFPAY ==
[2019-08-14 13:08] VITALS: BP 123/73; PULSE 88; RESP 14; TEMP 36.4; O2SAT 99; BMI 28.9
--- NOTE | 2019-08-14 13:30 | PC.NURSE ---
Pt eating/drinking calm/cooperative
[2019-08-14 13:36] LABS: UR Morphine/Opiate cutoff 300 Negative (Negative); Ur Creatinine Normal (Normal); Ur Specific Gravity Normal (Normal); Urine Amphetamines Negative (Negative); Urine Barbiturates Negative (Negative); Urine Benzodiazepines Negative (Negative); Urine Cocaine Negative (Negative); Urine MDMA Negative (Negative); Urine Methadone Negative (Negative); Urine Methamphetamines Negative (Negative); Urine Oxycodone Negative (Negative); Urine Phencyclidine Negative (Negative); Urine Tetrahydrocannabinol Positive (Negative); Urine Tricyclic Antidepressant Negative (Negative); Urine pH Normal (Normal)
--- NOTE | 2019-08-14 13:45 | ED_ITS ---
HPI - Psych General Chief Complaint: Psychiatric Symptoms Stated Complaint: Suicidal Thoughts Time Seen by Provider: 08/14/19 13:02 Source: patient and police Mode of arrival: Ambulatory Limitations: no limitations History of Present Illness HPI Narrative: 34-year-old female smoker with diagnosis of PTSD presents with [place] police and a chief complaint of suicidal ideation. The patient was speaking with her neighbor and told her that she was feeling suicidal and was going to kill herself by slashing her wrists with a box truck driver. Police were called and brought her here and have filled out I TA paperwork. The patient does have a longstanding psychiatric history and has been hospitalized at various local facilities. She does have therapist through [facility] and also has a prescribing provider through [facility]. She states that she has been taking her medications as prescribed but has been having ongoing and worsening difficulties ever since being taken off her stabilizing medications du ring her last about a year and a half ago. After the delivery of her child she was started back on Prozac but continues to feel suicidal. She does have a prior attempt by overdose on pills. She was most recently seen in the emergency department at [facility] about a week ago. complaint: suicidal ideation Related Data Home Medications Medication Instructions Recorded Confirmed hydroxyzine pamoate 50 mg PO TID PRN 06/23/19 08/14/19 fluoxetine 40 mg capsule 40 mg PO DAILY 07/07/19 08/14/19 Previous Rx's Medication Instructions Recorded levothyroxine 25 mcg tablet 25 mcg PO DAILY #90 tab 07/07/19 Allergies Allergy/AdvReac Type Severity Reaction Status Date / Time soy [SOY] Allergy Severe ANAPHYLAXIS Verified 08/14/19 13:08 adhesive [ADHESIVE] Allergy Unknown PAINFUL TO Verified 08/14/19 13:08 SKIN, BURST BLOOD VESSELS aripiprazole [From ABILIFY] AdvReac Severe PSYCHOSIS Verified 08/14/19 13:08 hydromorphone [From DILAUDID] AdvReac Severe VISUAL Verified 08/14/19 13:08 AND AUDITORIAL HALLUCINATION zolpidem [From AMBIEN] AdvReac Severe RESTLESSNES Verified 08/14/19 13:08 S morphine [MORPHINE] AdvReac Intermediate HALLUCINATI Verified 08/14/19 13:08 ONS promethazine [From PHENERGAN] AdvReac Intermediate UNPLEASANT Verified 08/14/19 13:08 FEELING codeine [CODEINE] AdvReac Mild NAUSEA AND Verified 08/14/19 13:08 VOMITING Review of Systems Constitutional Constitutional: Denies chills, Denies fatigue, Denies fever(s), Denies frequent falls, Denies lethargy and Denies weakness Eyes Eyes: Denies change in vision, Denies eye discharge, Denies irritation and Denies loss of vision ENT Ears, Nose, Mouth, and Throat: Denies change in voice, Denies dizziness, Denies neck pain, Denies sore throat and Denies throat swelling Cardiovascular Cardiovascular: Denies chest pain, Denies irregular heart rhythm, Denies lightheadedness, Denies palpitations, Denies dyspnea, Denies dyspnea on exertion and Denies orthopnea Respiratory Respiratory: Denies cough, Denies dyspnea, Denies dyspnea on exertion and Denies wheezing Gastrointestinal Gastrointestinal: Denies abdominal pain, Denies change in bowel habits, Denies diarrhea, Denies nausea and Denies vomiting Genitourinary Genitourinary: Denies hematuria, Denies flank pain, Denies urinary incontinence and Denies urinary urgency Musculoskeletal Musculoskeletal: Denies back pain, Denies muscle weakness, Denies neck pain, Denies numbness and Denies tingling Integumentary/Breasts Skin/Breast: Denies pruritus, Denies erythema, Denies rash and Denies wounds Neurologic Neurologic: Denies behavioral changes, Denies confusion, Denies dizziness, Denies frequent falls, Denies loss of vision, Denies numbness, Denies tingling and Denies weakness Psychiatric Psychiatric: Denies anxiety, Denies behavioral changes, Denies confusion, Denies depression, Denies homicidal ideation and Reports suicidal ideation Endocrine Endocrine: Denies fatigue, Denies flushing and Denies palpitations Hematologic/Lymphatic Hematologic/Lymphatic: Denies easy bruising Allergic/Immunologic Allergic/Immunologic: Denies urticaria, Denies throat swelling and Denies wheezing Patient History Medical History Hypothyroidism (Acute) Suicidal ideation (Acute) Surgical History Status post breast lumpectomy Status post delivery Status post dilation and curettage Status post laparoscopy Status post surgery (04/10/17) Family History Brother Age: 37 Cerebral palsy, unspecified type Father Heart disease Essential hypertension High cholesterol Mental health problem Mother Age: 68 Diabetes mellitus Mental health problem Grandmother Alzheimer's disease Mental health problem Sister Mental health problem Sister Age: 44 Mental health problem Social History Smoking Status: Current every day smoker quit status: not considering quitting second hand exposure: No alcohol intake: former substance use type: marijuana (1g joint daily ) Smoking Status: Current every day smoker tobacco type: cigarettes alcohol intake frequency: holidays/special occasions only Substance Use Type: marijuana Exam Narrative Exam Narrative: GENERAL: [34] year old patient appears stated age. Well- nourished, well-developed patient, in mild distress. Tearful HEAD: Atraumatic. Normocephalic. EYES: Pupils equal round and reactive. Extraocular motions intact. No scleral icterus. No injection or drainage. ENT: Nose without bleeding, purulent drainage. Throat without erythema, tonsillar hypertrophy or exudate. Airway patent. NECK: Trachea midline. Non tender CARDIOVASCULAR: Regular rate and rhythm without murmurs, gallops, or rubs. RESPIRATORY: Clear to auscultation. Breath sounds equal bilaterally. No wheezes, rales, or rhonchi. GASTROINTESTINAL: Abdomen soft, non-tender, nondistended. EXTREMITIES: No edema or joint tenderness. BACK: Nontender without deformity or crepitance. No flank tenderness. NEURO: AOx3. SKIN: No rash or erythema of visible areas Initial Vital Signs Initial Vital Signs: Vital Signs Temperature 97.6 F 08/14/19 13:08 Pulse Rate 88 08/14/19 13:08 Respiratory Rate 14 08/14/19 13:08 Blood Pressure 123/73 08/14/19 13:08 Pulse Oximetry 99 08/14/19 13:08 Course Course Course Narrative: Social work consultation given suicidal ideation with a plan. I would like to see her hospitalized for stabilization of her condition patient is accepted at [facility] in [facility] Orders Ordered: ED Orders 08/14/19 13:18 Urine Drug Screen, Rapid Stat 08/14/19 13:50 Acetaminophen Stat Complete Blood Count AUTO DIFF Stat Comprehensive Metabolic Panel Stat Ethanol (ETOH) Stat Free T4, Direct Thyroxine Stat Salicylate Stat Thyroid Stimulating Hormone Stat 08/14/19 14:39 Consult to [facility] - Computer Peripheral Equipment Operator Stat Discontinued Medications Lorazepam (Ativan) 1 mg PO NOW ONE Stop: 08/14/19 15:08 Last Admin: 08/14/19 16:34 Dose: 1 mg Documented by: CARLOS Lorazepam (Ativan) 1 mg IM NOW ONE Stop: 08/14/19 19:57 Nicotine (Nicoderm) 21 mg TOP NOW ONE Stop: 08/14/19 14:33 Last Admin: 08/14/19 14:46 Dose: 21 mg Documented by: JODY Vital Signs Vital signs: Vital Signs - 8 hr 08/14/19 13:08 Temperature 97.6 F Pulse Rate 88 Respiratory Rate 14 Blood Pressure 123/73 Pulse Oximetry 99 MDM - Psych Lab Data Result diagrams: 08/14/19 13:50 08/14/19 13:50 Labs: Lab Results 08/14/19 08/14/19 08/14/19 Range/Units 13:18 13:50 13:50 WBC 13.3 H (4.5-11.0) X10^3/uL RBC 5.06 (4.0-5.2) X10^6/uL Hgb 13.6 (12.0-16.0) g/dL Hct 41.0 (36-46) % MCV 80.9 (80-100) fL MCH 26.9 (26-34) PG MCHC 33.2 (30-36) % RDW 15.8 H (11.6-14.8) % Plt Count 366 (150-400) X10^3/uL Neut % (Auto) 70.7 (50-75) % Lymph % (Auto) 21.8 L (25-40) % [place] % (Auto) 6.2 (3-14) % Eos % (Auto) 0.3 L (2-4) % Baso % (Auto) 1.0 (0-2) % Neut # (Auto) 9400 H (9734-1593) /uL Lymph # (Auto) 2900 (6469-8913) /uL [place] # (Auto) 800 (0-900) /uL Eos # (Auto) 0 (0-450) /uL Baso # (Auto) 100 (0-100) /uL Sodium 138 (137-145) mmol/L Potassium 4.2 (3.4-5.1) mmol/L Chloride 99 (98-107) mmol/L Carbon Dioxide 29 (22-32) mmol/L BUN 8 (7-17) mg/dL Creatinine 0.80 (0.52-1.04) mg/dL Estimated GFR > 60.0 (>60) mL/min BUN/Creatinine Ratio 10.0 (6-22) Glucose 121 H (70-100) mg/dL Calcium 9.9 (8.4-10.2) mg/dL Total Bilirubin 0.4 (0.2-1.3) mg/dL AST 19 (14-36) IU/L ALT 10 (<35) IU/L Alkaline Phosphatase 85 (38-126) U/L Total Protein 8.3 H (6.3-8.2) g/dL Albumin 4.8 (3.5-5.0) g/dL Globulin 3.5 (1.7-4.1) g/dL Albumin/Globulin Ratio 1.4 (1.0-2.8) TSH (0.47-4.68) uIU/mL Free T4 (0.78-2.19) ng/dL Salicylates < 1.0 (<20) mg/dL U Opiates 300ng/mL cut Negative (Negative) Ur Oxycodone Screen Negative (Negative) Urine Methadone Screen Negative (Negative) Acetaminophen < 10 L (10-30) ug/mL Ur Barbiturates Screen Negative (Negative) U Tricyclic Antidepress Negative (Negative) Ur Phencyclidine Scrn Negative (Negative) Ur Amphetamines Screen Negative (Negative) U Methamphetamines Scrn Negative (Negative) Ur MDMA Scrn (Ecstasy) Negative (Negative) U Benzodiazepines Scrn Negative (Negative) Urine Cocaine Screen Negative (Negative) U Marijuana (THC) Screen Positive H (Negative) Ethyl Alcohol < 10 ( - 10) mg/dL 08/14/19 Range/Units 13:50 WBC (4.5-11.0) X10^3/uL RBC (4.0-5.2) X10^6/uL Hgb (12.0-16.0) g/dL Hct (36-46) % MCV (80-100) fL MCH (26-34) PG MCHC (30-36) % RDW (11.6-14.8) % Plt Count (150-400) X10^3/uL Neut % (Auto) (50-75) % Lymph % (Auto) (25-40) % Davi[place] % (Auto) (3-14) % Eos % (Auto) (2-4) % Baso % (Auto) (0-2) % Neut # (Auto) (9264-2306) /uL Lymph # (Auto) (6642-6486) /uL [place] # (Auto) (0-900) /uL Eos # (Auto) (0-450) /uL Baso # (Auto) (0-100) /uL Sodium (137-145) mmol/L Potassium (3.4-5.1) mmol/L Chloride (98-107) mmol/L Carbon Dioxide (22-32) mmol/L BUN (7-17) mg/dL Creatinine (0.52-1.04) mg/dL Estimated GFR (>60) mL/min BUN/Creatinine Ratio (6-22) Glucose (70-100) mg/dL Calcium (8.4-10.2) mg/dL Total Bilirubin (0.2-1.3) mg/dL AST (14-36) IU/L ALT (<35) IU/L Alkaline Phosphatase (38-126) U/L Total Protein (6.3-8.2) g/dL Albumin (3.5-5.0) g/dL Globulin (1.7-4.1) g/dL Albumin/Globulin Ratio (1.0-2.8) TSH 1.27 (0.47-4.68) uIU/mL Free T4 0.93 (0.78-2.19) ng/dL Salicylates (<20) mg/dL U Opiates 300ng/mL cut (Negative) Ur Oxycodone Screen (Negative) Urine Methadone Screen (Negative) Acetaminophen (10-30) ug/mL Ur Barbiturates Screen (Negative) U Tricyclic Antidepress (Negative) Ur Phencyclidine Scrn (Negative) Ur Amphetamines Screen (Negative) U Methamphetamines Scrn (Negative) Ur MDMA Scrn (Ecstasy) (Negative) U Benzodiazepines Scrn (Negative) Urine Cocaine Screen (Negative) U Marijuana (THC) Screen (Negative) Ethyl Alcohol ( - 10) mg/dL Point of Care Testing Test Results Negative Urine Dip Bedside Urine Glucose Negative Bedside Urine Bilirubin - Negative Bedside Urine Ketone - Negative Urine Specific Molino 1.015 Bedside Urine Occult Blood +/- Bedside Urine pH 6.5 Bedside Urine Protein - Negative Bedside Urine Urobilinogen - Negative Bedside Urine Nitrite - Negative Bedside Urine Leukocytes + 70 Esterase Discharge Plan Departure Patient Disposition: Xfer Psychiatric Hosp Clinical Impression: Depression with suicidal ideation Instructions: DI for Suicidal Ideation-Adult Prescriptions: No Action fluoxetine 40 mg capsule 40 mg PO DAILY RF: 0 levothyroxine 25 mcg tablet 25 mcg PO DAILY Qty: 90 RF: 1 hydroxyzine pamoate 50 mg capsule 50 mg PO TID PRN (Reason: Anxiety) RF: 0 Referrals: Thad Harden, [Primary Care Provider] -
[2019-08-14 14:07] LABS: Add Manual Diff / Slide Review NO; Basophils Absolute Auto 100 /uL (0-100); Eosinophils Absolute Auto 0 /uL (0-450); Eosinophils Percent Auto 0.3 % (2-4); Hemoglobin 13.6 g/dL (12.0-16.0); Lymphocytes Absolute Auto 2900 /uL (1100-4500); Lymphocytes Percent Auto 21.8 % (25-40); Mean Corpuscular HGB Conc 33.2 % (30-36); Mean Corpuscular Hemoglobin 26.9 PG (26-34); Mean Corpuscular Volume 80.9 fL (80-100); Monocytes Absolute Auto 800 /uL (0-900); Monocytes Percent Auto 6.2 % (3-14); Neutrophils Absolute Auto 9400 /uL (1500-7000); Neutrophils Percent Auto 70.7 % (50-75); Platelet Count 366 X10^3/uL (150-400); Red Blood Cell Count 5.06 X10^6/uL (4.0-5.2); Red Cell Distribution Width 15.8 % (11.6-14.8); White Blood Cell Count 13.3 X10^3/uL (4.5-11.0)
[2019-08-14 14:20] LABS: Acetaminophen < 10 ug/mL (10-30); Alanine Aminotransferase 10 IU/L (<35); Albumin 4.8 g/dL (3.5-5.0); Albumin Globulin Ratio 1.4 (1.0-2.8); Alkaline Phosphatase 85 U/L (38-126); Aspartate Aminotransferase 19 IU/L (14-36); Bilirubin Total 0.4 mg/dL (0.2-1.3); Blood Urea Nitrogen 8 mg/dL (7-17); Calcium 9.9 mg/dL (8.4-10.2); Carbon Dioxide 29 mmol/L (22-32); Chloride 99 mmol/L (98-107); Estimated Glomerular Filt Rate > 60.0 mL/min (>60); Ethanol (ETOH) < 10 mg/dL; Globulin 3.5 g/dL (1.7-4.1); Glucose 121 mg/dL (70-100); HEMOLYSIS < 15 (0-50); Potassium 4.2 mmol/L (3.4-5.1); Salicylate < 1.0 mg/dL (<20); Sodium 138 mmol/L (137-145); Total Protein 8.3 g/dL (6.3-8.2)
[2019-08-14 14:36] LABS: Free T4, Direct Thyroxine 0.93 ng/dL (0.78-2.19)
[2019-08-14] MEDS: NICOTINE 21 MG PATCH TOP (14:46)
[2019-08-14 14:50] LABS: Thyroid Stimulating Hormone 1.27 uIU/mL (0.47-4.68)
--- NOTE | 2019-08-14 15:50 | PC.NURSE ---
Patient talking with fuller brush worker Aileen about inpatient care.
--- NOTE | 2019-08-14 16:22 | CM.SWNOTE ---
Addendum entered by Arelis Payan R.N. 08/14/19 20:29: [facility] called and they can accept patient tonight. ED CRANK HAND called Jt with [facility] and updated him with transport time of 10pm. Patient updated and was struggling with going all the way to [place] for treatment. Patient agreed but was still feeling very anxious. ED provider gave patient Ativan to help call patients anxiety. Accepting provider is Dr. Guajardo, Nurse report line is [phone]. ED tracker updated and ED staff notified. ED KIMMIE working on transportation for patient to [facility]. Arelis aPyan RN Addendum entered by Arelis aPyan R.N. 08/14/19 17:52: CM/RN called [facility]- they are currently at capacity and are not screening anyone else for today but will look at clinicals tomorrow if a bed becomes available- clinicals faxed for their review. CM/Rn called [facility] and they currently have bed availability in their [place] facility which they are screening patient for possible admission- Clinicals faxed. CM/Rn Called [facility] they have female beds available as well and clinicals were faxed and they are reviewing for possible admission. Arelis Payan RN Original Note: CM/bibliographic services specialist note: Patient is a 34 yr old female who was brought into the ED by [employer] after making statements to a neighbor about wanting to kill herself by slitting her wrists. Patient has come into the ED with SI before and was transferred to [facility] for inpatient treatment. Patient is open to getting inpatient treatment again and would like to get stabilized on medication to help with her PTSD and Depression. Patient has two kids that currently live with their fathers due to patients mental health issues. Patient was on a combination of Prozac, Prazosin and Wellbutrin which she stated help manage her depression, PTSD and SI issues. Patient stated she was on the from 2014 thru 2018 when she went off the medications due to being . Patient has been struggling with SI since the of her last child in early 2019. I: [place] and Medicaid Plan: find voluntary inpatient mental health treatment for medication management and stabilization. Arelis Payan RN Discharge Planning/Care Management ED Psychiatric Symptoms Assessment Start: 08/14/19 13:07 Freq: Status: Active Protocol: Document 08/14/19 13:24 KB (Rec: 08/14/19 13:26 KB [id number]) Psychiatric Symptoms Assessment Symptoms/Complaint Suicidal Ideation History Of Same Yes Associated Psychiatric Symptoms Suicidal Ideation If Self Harm Admits Thoughts of Self Harm, Has Acted on Plan,Intentional Overdose Details of Plan Pt brought by [employer] after the patients neighbor called 911 because the patient was talking about killing herself by cutting her wrists with a crap game box person. Pt has a history of post depression and PTSD,pt had a child in August. At triagee pt states that yes she is still suicidal and doesn't want to live anymore. Pt attempted to kill herself approx 1 month ago by overdosing on trazadone . Level of Consciousness Alert,Appropriate,Awake Ability to Follow Directions Excellent Patient Cognition Impaired No Affect Description Depressed,Labile Patient Appearance Well Groomed Hallucination Type None Thought Process: Normal Feelings of Hopelessness Yes Suicidal Ideation Constant Suicide Plan Clear,Organized,Specific, Feasible Homicidal Ideation None COREMAKER SUPERVISOR - Planer Tailer Assessment Start: 08/14/19 16:00 Freq: Status: Active Protocol: Document 08/14/19 16:00 (Rec: 08/14/19 16:22 [id number]) COREMAKER SUPERVISOR/Planer Tailer Assessment Start date 08/14/19 Visit Start Time 15:20 End date 08/14/19 Visit End Time 16:00 Total time Care Management spent on 90min patient visit-in minutes Presenting Problem Patient was brought into the ED by [employer] for SI following patient telling her neighbor that she was going to slit her wrists. Patients neighbor called [employer] and reported patients statements. [employer] then brought patient into the ED. Precipitating Event(s) Patient has been struggling with SI since 2014. Patient states she feels SI daily and is so anxious and unable to leave her house that her children are being cared for by their fathers and she hasn' t been able to make her visitations with her eldest daughter due to her anxiety. Patient states that missing her children has increased her SI symptoms. Current Behavioral Health Provider(s) Patient currently sees a [facility] Facility, Provider, Ph. # behavior health provider at [facility] in [facility]. Psych. 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 Patient does use marijuana to help calm her anxiety and PTSD. Psychiatric Hospitalizations (date(s)/ Patient has had several location) hospitalizations. Patients first hospitalization was in [place] at [facility], patient has then had three inpatient psychiatric hospitalizations at [facility] in [place]. 1. 2018, Mar and 26 May 2019. Support System(s) Patient is close with her sikhism and has a working relationship with her children's fathers School/Work patient is not working or going to school currently. Orientation (Person/Place/Time) Patient was alert and oriented during CM/RN Visit. Affect Patients affect was flat and sad, she was lying down when CM/RN fist arrived but sat up and held eye contact with CM/ RN. Patient appeared disheveled Thought Content - Specify/Describe Patient states she does not Obsessions, Delusions, Hallucinations have hallucinations visual or auditory. Patient does say she has PTSD and has flash backs periodically. Thought Processes (Sdksgis-Ahviqkdr-Gygb Patient though process was Medwhqyt-Tyfaumev-Sbaaxswbdm- logical and Coherent- Dvpgmovcrdugrp-Ntvqyfn-Sjfsvdoxhuek- Thought Blocking) Speech (Qumtrk-Vlrg-Lyhwnzc-Rapid-Soft- normal Loud-Pressured) Motor (Dnvjvf-Kbxjkppig-Oxwn-Other) normal Insight (Present-Partially Present- Patents insight was present Impaired) but impaired due to on going SI Judgement (Intact-Impaired) Impaired due to SI and not seeking help needing [employer] to intervene to get patient mental health help Memory (Jfoekmjdm-Gexamu-Qkutwk, Intact Impaired-Intact) Concentration (Intact-Impaired) Intact Attention (Intact-Impaired) Intact Behavior (Appropriate-Inappropriate) Appropriate Suicidal Ideation (Plan) Yes: to cut her wrists Homicidal Ideation (Plan) No Intervention CM/RN spoke with Dr. Amaral and determined patient would be best served by going to inpatient treatment to get help with new medications and stabilization. Xu agreed and is currently voluntary for inpatient treatment.
--- NOTE | 2019-08-14 16:29 | PC.NURSE ---
patient resting, calm and cooperative
[2019-08-14] MEDS: LORazepam 0.5 MG TABLET 1 MG PO (16:34)
--- NOTE | 2019-08-14 17:39 | PC.NURSE ---
patient stated was admitted to our([facility]) ER prior to this visit and was transferred to [facility] in [place] and felt she did not get help from the hospital with her condition she has now at the time
[2019-08-14] MEDS: LORazepam 2 MG/ML INJ 1 MG IM (20:21)
--- NOTE | 2019-08-14 20:35 | PC.NURSE ---
patient is calm, and resting-pleasant
[2019-08-14 21:01] VITALS: BP 110/58; PULSE 72; RESP 18; TEMP 36.7; O2SAT 98
== END 2019-08-14 21:08 ==
PROVIDERS: Emergency Provider Emergency Medicine; PCP Family Medicine; Referring Provider Nurse Practitioner Psychiatric/Mental Health
DX: F32.9 Major depressive disorder, single episode, unspecified (principal); R45.851 Suicidal ideations; F29 Unspecified psychosis not due to a substance or known physiological condition
CPT/HCPCS: 36415; 80053; 80061; 80305; 80320; 80329; 81003; 81025; 84146; 84432; 84436; 84439; 84443; 84479; 85025; 86800; 96372; 99284; G0480; J2060

== ENCOUNTER → 2019-08-31 08:58 | Outpatient (CLI) | payer OTHER, MEDICAID, SELFPAY ==
[2019-08-31 09:34] LABS: Add Manual Diff / Slide Review NO; Basophils Absolute Auto 100 /uL (0-100); Basophils Percent Auto 0.5 % (0-2); Eosinophils Absolute Auto 0 /uL (0-450); Eosinophils Percent Auto 0.3 % (2-4); Hematocrit 38.4 % (36-46); Hemoglobin 12.5 g/dL (12.0-16.0); Lymphocytes Absolute Auto 2000 /uL (1100-4500); Lymphocytes Percent Auto 15.5 % (25-40); Mean Corpuscular HGB Conc 32.5 % (30-36); Mean Corpuscular Hemoglobin 26.6 PG (26-34); Mean Corpuscular Volume 81.8 fL (80-100); Monocytes Absolute Auto 1100 /uL (0-900); Neutrophils Absolute Auto 9500 /uL (1500-7000); Neutrophils Percent Auto 74.7 % (50-75); Platelet Count 378 X10^3/uL (150-400); Red Blood Cell Count 4.69 X10^6/uL (4.0-5.2); Red Cell Distribution Width 15.6 % (11.6-14.8); White Blood Cell Count 12.7 X10^3/uL (4.5-11.0)
[2019-08-31 09:50] LABS: Hemoglobin A1C% w Est Avg Glu 5.5 % (4.0-6.0)
[2019-08-31 10:03] LABS: Alanine Aminotransferase 10 IU/L (<35); Albumin 4.3 g/dL (3.5-5.0); Albumin Globulin Ratio 1.4 (1.0-2.8); Alkaline Phosphatase 68 U/L (38-126); Aspartate Aminotransferase 20 IU/L (14-36); Bilirubin Total 0.5 mg/dL (0.2-1.3); Blood Urea Nitrogen 16 mg/dL (7-17); Calcium 9.9 mg/dL (8.4-10.2); Carbon Dioxide 29 mmol/L (22-32); Chloride 104 mmol/L (98-107); Cholesterol 194 mg/dL (140-199); Estimated Glomerular Filt Rate > 60.0 mL/min (>60); Glucose 101 mg/dL (70-100); HDL Cholesterol 52 mg/dL (40-60); HEMOLYSIS < 15 (0-50); LDL Cholesterol Calculated 124 mg/dL (<100); Potassium 4.6 mmol/L (3.4-5.1); Sodium 139 mmol/L (137-145); Total Protein 7.3 g/dL (6.3-8.2); Triglycerides 91 mg/dL (35-150)
[2019-08-31 10:20] LABS: Free T4, Direct Thyroxine 1.21 ng/dL (0.78-2.19)
[2019-08-31 10:34] LABS: Thyroid Stimulating Hormone 1.21 uIU/mL (0.47-4.68)
== END ==
PROVIDERS: PCP Family Medicine; Referring Provider Family Medicine; Visit Provider Family Medicine
DX: Z01.89 Encounter for other specified special examinations (principal); E03.9 Hypothyroidism, unspecified
CPT/HCPCS: 36415; 80053; 80061; 83036; 84439; 84443; 85025

== ENCOUNTER → 2019-09-02 16:17 | Outpatient (CLI) | payer OTHER, MEDICAID, SELFPAY ==
[2019-09-02 18:03] LABS: Add Manual Diff / Slide Review NO; Basophils Absolute Auto 100 /uL (0-100); Basophils Percent Auto 0.5 % (0-2); Eosinophils Absolute Auto 0 /uL (0-450); Eosinophils Percent Auto 0.4 % (2-4); Hematocrit 35.9 % (36-46); Hemoglobin 11.9 g/dL (12.0-16.0); Lymphocytes Absolute Auto 2800 /uL (1100-4500); Lymphocytes Percent Auto 22.4 % (25-40); Mean Corpuscular HGB Conc 33.1 % (30-36); Mean Corpuscular Hemoglobin 27.1 PG (26-34); Mean Corpuscular Volume 82.1 fL (80-100); Monocytes Absolute Auto 900 /uL (0-900); Monocytes Percent Auto 7.4 % (3-14); Neutrophils Absolute Auto 8600 /uL (1500-7000); Neutrophils Percent Auto 69.3 % (50-75); Platelet Count 389 X10^3/uL (150-400); Red Blood Cell Count 4.37 X10^6/uL (4.0-5.2); Red Cell Distribution Width 16.2 % (11.6-14.8); White Blood Cell Count 12.5 X10^3/uL (4.5-11.0)
[2019-09-02 18:12] LABS: Follicle Stimulating Hormone 3.03 mIU/mL
[2019-09-02 18:15] LABS: Prolactin 37.6 ng/mL (3.0-18.6)
[2019-09-02 18:28] LABS: Estradiol, Total 24.1 pg/mL
[2019-09-02 18:30] LABS: Hepatitis B Surface Antigen NEGATIVE s/c (NEGATIVE)
[2019-09-02 18:55] LABS: HIV 1 & 2 Ab/Ag 4th Gen Combo NEGATIVE (NEGATIVE); Hep C Virus Ab w/Reflex Quant NEGATIVE s/c (NEGATIVE)
[2019-09-02 19:10] LABS: Urine N gonorrhoeae NOT DETECTED
[2019-09-02 19:18] LABS: Urine Chlamydia NOT DETECTED
[2019-09-03 14:46] LABS: RPR Screen Non Reactive (Non Reactive)
== END ==
PROVIDERS: PCP Family Medicine; Referring Provider Obstetrics & Gynecology; Visit Provider Obstetrics & Gynecology
DX: Z11.3 Encounter for screening for infections with a predominantly sexual mode of transmission (principal); R79.89 Other specified abnormal findings of blood chemistry; N91.2 Amenorrhea, unspecified; D72.829 Elevated white blood cell count, unspecified
CPT/HCPCS: 36415; 82670; 83001; 84146; 85025; 86592; 86803; 87340; 87389; 87491; 87591

== ENCOUNTER → 2019-09-05 10:00 | Outpatient (CLI) | payer OTHER, MEDICAID, SELFPAY ==
[2019-09-05 10:23] LABS: Add Manual Diff / Slide Review NO; Basophils Absolute Auto 100 /uL (0-100); Basophils Percent Auto 0.4 % (0-2); Eosinophils Absolute Auto 0 /uL (0-450); Hematocrit 39.6 % (36-46); Hemoglobin 12.8 g/dL (12.0-16.0); Lymphocytes Absolute Auto 1700 /uL (1100-4500); Lymphocytes Percent Auto 11.2 % (25-40); Mean Corpuscular HGB Conc 32.3 % (30-36); Mean Corpuscular Hemoglobin 26.7 PG (26-34); Mean Corpuscular Volume 82.8 fL (80-100); Monocytes Absolute Auto 1500 /uL (0-900); Monocytes Percent Auto 9.9 % (3-14); Neutrophils Absolute Auto 12200 /uL (1500-7000); Neutrophils Percent Auto 78.5 % (50-75); Platelet Count 388 X10^3/uL (150-400); Red Blood Cell Count 4.78 X10^6/uL (4.0-5.2); White Blood Cell Count 15.5 X10^3/uL (4.5-11.0)
== END ==
PROVIDERS: PCP Family Medicine; Referring Provider Obstetrics & Gynecology; Visit Provider Obstetrics & Gynecology
DX: Z12.4 Encounter for screening for malignant neoplasm of cervix (principal); Z11.51 Encounter for screening for human papillomavirus (HPV); Z11.3 Encounter for screening for infections with a predominantly sexual mode of transmission; D72.829 Elevated white blood cell count, unspecified
CPT/HCPCS: 36415; 85025

== ENCOUNTER → 2019-09-07 10:14 | Outpatient (CLI) | payer OTHER, MEDICAID, SELFPAY ==
--- NOTE | 2019-09-07 10:28 | DI.RAD.S_ITS ---
PROCEDURE: XR CHEST 2V INDICATIONS: chronic cough TECHNIQUE: 2 views of the chest were acquired. COMPARISON: [facility], CT, PE STUDY (CTA CHEST), 10/14/2017, 15:56. [facility], CR, RIBS UNILATERAL WITH PA CXR, 10/19/2017, 13:21. FINDINGS: Surgical changes and devices: None. Lungs and pleura: Lungs are clear. No pleural effusions or pneumothorax. Mediastinum: Mediastinal contours are normal. Heart size is normal. Bones and chest wall: No suspicious bony abnormalities. Soft tissues appear unremarkable. IMPRESSION: Normal for age, source of current cough symptoms is not seen. Dictated by: Juan Hughes M.D. on 09/07/2019 at 11:22 Approved by: Juan Hughes M.D. on 09/07/2019 at 11:22
== END ==
PROVIDERS: Referring Provider Family Medicine; Visit Provider Family Medicine
DX: R05 Cough (principal)
CPT/HCPCS: 71046

== ENCOUNTER → 2019-09-10 16:24 | Outpatient (CLI) | payer OTHER, MEDICAID, SELFPAY ==
[2019-09-10 17:28] LABS: Influenza A - CEPHEID Flu A NEGATIVE (NEGATIVE); Influenza B - CEPHEID Flu B NEGATIVE (NEGATIVE)
[2019-09-12 09:36] LABS: COVID19 Sendout Not Detected (Not Detected)
== END ==
PROVIDERS: Visit Provider Physician Assistant
DX: R68.89 Other general symptoms and signs (principal)
CPT/HCPCS: 87502

== ENCOUNTER → 2019-12-02 16:22 | Outpatient (CLI) | payer OTHER, MEDICAID, SELFPAY ==
[2019-12-03 17:04] LABS: COVID19 Sendout NOT DETECTED (Not Detect)
== END ==
PROVIDERS: PCP Family Medicine; Visit Provider Registered Nurse
DX: Z01.812 Encounter for preprocedural laboratory examination (principal)
CPT/HCPCS: 87635

== ENCOUNTER 2019-12-04 08:36 | Day surgery (SDC) | payer OTHER, MEDICAID, SELFPAY ==
[2019-12-03 07:33] VITALS: BMI 33.8
[2019-12-04] VITALS (7 sets, daily range): BP systolic 102–127; BP diastolic 35–72; PULSE 70–94; RESP 14–20; TEMP 36.1–37.2; O2SAT 89–100; BMI 34.0
[2019-12-04] MEDS: LACTATED RINGERS 1,000 ML 42 ML IV (08:47)
--- NOTE | 2019-12-04 09:36 | PM.PREOP ---
Pre-operative Note COVID-19 COVID-19 status: Negative Result date/Date tested (Pos, Neg/Pending): 12/02/19 Interval Note History & Physical reviewed/Exam performed by Physician: Yes Changes to H&P: No
--- NOTE | 2019-12-04 10:00 | SUR.OPER ---
Lithotomy on padded OR bed, head on pillow, arms secured on padded arm boards at <90 degrees abduction. Legs secured in padded yellow fins stirrups.
[2019-12-04] MEDS: LIDOCAINE 1% W/EPI 20 ML INJ (10:04)
[2019-12-04] MEDS: PIPERACILLIN-TAZO 3.375 GM/50 ML FROZ.PIGGY IV (10:20)
--- NOTE | 2019-12-04 10:53 | PM.OP.1 ---
Operative Date/Time/Diagnoses Date of procedure: 12/04/19 Time of procedure: 10:53 Pre-op diagnosis: perirectal abscess Post-op diagnosis: same Procedure & Clinicians Procedure: Incision and drainage of perirectal abscess Same procedure as scheduled: No Indications: Urgent intra op consult. This is a patient of Dr. Vazquez who was brought in for Bartholin's cyst drainage. During her procedure, Dr. Vazquez found drainage coming from the rectum and requested an urgent consult from me because I was the general surgeon hospital television rental clerk. Surgeon: Rena Braxton Click Yes if Unassisted: Yes Anesthesia Type: General Operative Notes Findings: 2cm x 3cm abscess in the right perineum draining purulent fluid into the rectum Specimen(s): other (fluid for culture) Prosthetic devices, grafts, tissues, transplants, or devices: 1/4 inch strip gauze packing Estimated Blood Loss (mL): 5 Procedure in detail: A came into the operating room and the patient was already positioned in lithotomy position on the operating table and was under anesthesia. Her vital signs were stable, and Dr. Vazquez explained to me that she had brought the patient in for drainage of a of a Bartholin's cyst, but found that upon palpating the cyst it drained into the rectum. I palpated the system found that purulent drainage was pouring from the rectum. I placed a well lubricated speculum into the rectum and examined the location through which the drainage was expressed. It was coming from the mucosa of the anterior anal canal near the midline, about 2 cm above the dentate line. There was no visible mass or mucosal lesion at this location. I did not see any significant internal or external hemorrhoids. There was no active bleeding from the anal canal. Local anesthetic was given in the skin over the bulging abscess which is just to the right and slightly anterior to the anoderm. An 18 gauge needle on a syringe was advanced into the abscess, and about 10 cc of purulent fluid was drained out. An 11 blade was then used to make a small incision in the skin at this location. A hemostat was used to spread within the cavity, and a bit more bloody and purulent fluid came out. I again palpated the area, and felt that there was some remaining induration. I again advanced the 18 gauge needle into this area, and got a tiny amount of remaining purulent fluid. I again spread in this area with the hemostatic, and no further drainage was expressed. There was moderate bleeding coming from the site. Therefore I packed it with 1/4 inch strip gauze packing and held pressure for about 10 minutes. There was a tiny amount of oozing around the gauze, but most of the bleeding had stopped at this point. I discussed this with throughout the procedure, and at this point she was comfortable taking back over the care of the patient. At the time that I scrubbed out, the patient was in stable condition, and needle, sponge, and instrument counts were correct. Complications: none Post-operative Condition: stable Disposition: other (The patient remained in the OR at the time I left the room. She was in stable condition under the care of .) Plan for aftercare: Recommendations: 1. Leave packing in for 24 hours, and then sit in a warm tub and remove the packing once it is saturated. 2. Expect to see ongoing drainage and bloody fluid from the wound. If copious bleeding occurs, the patient should contact the doctor hospital television rental clerk or come into the ER. 3. The patient should do twice daily Sitz baths, or sit in a warm tub to soak twice daily. 4. The patient should use a pad in the underwear, and expect to need to change it several times per day. 5. The patient should be cautioned against constipation, and recommend stool softener such as docusate, fiber supplement such as Metamucil, and laxative such as MiraLax to help prevent constipation. 6. The patient will likely need some prescription pain medications such as oxycodone or another narcotic pain medication that she is not allergic to. If she does not need this, she should be cautioned not to take it as it will worsen constipation which will increase the potential for worsening symptoms from her perianal abscess. 7. Many patients who have a perianal abscess will develop a perianal fistula, which will require additional procedures or surgeries to resolve. The patient should be cautioned about this possibility. She should make a follow-up appointment to see me in the office in the next 1-2 weeks. If she is having worsening symptoms such as fevers, worsening pain or tenderness, or foul-smelling drainage from the area she should seek care urgently either by calling our office or coming into the ER.
--- NOTE | 2019-12-04 11:17 | SUR.PHASEII ---
Assumed care from Susan pt to OPD. Bed low locked call lopez in hand. Dr Sarmiento asked for po pain med, verbal order received.
[2019-12-04] MEDS: ACETAMINOPHEN 325 MG TABLET 975 MG PO (11:22)
--- NOTE | 2019-12-04 11:30 | SUR.PHASEII ---
Medicated for pain with Tylenol. Awaiting for surgeon to return to talk with pt.
--- NOTE | 2019-12-04 12:15 | P.OP_ITS ---
Operative Date/Time/Diagnoses Date of procedure: 12/04/19 Time of procedure: 10:40 Pre-op diagnosis: Bartholin's cyst abcess Post-op diagnosis: other (camilla-rectal abcess tracking up to labia/distal vagina) Procedure & Clinicians Procedure: Exam under anesthesia Incision and drainage of a perirectal abscess by Dr Braxton Same procedure as scheduled: No (Incision and drainage of a perirectal abscess by Dr Braxton) Indications: Patient seen in office with an acute tender abscess developed over the prior few days, with a tender cystic area bulging along her right inferior labia and inferior vulva, bulging mildly in to her distal right vagina. It also extended somewhat into the perineum towards the anus. It appeared most likely to be Bartholin's, extending into perineum, but was somewhat atypical, not bulging quite as much as a Bartholin's would bulge. It did not have a typical location for a perirectal abscess either. She had desired drainage gender anesthesia. I did discuss with her if it ended up being a perirectal abcess and not a Bartholin's, then I would obtained an intraoperative surgical consult. Since her prior exam, it has increased size, visible as a larger than golf ball size bulge along the inferior vulva and right perineum, and on palpation does folds at the inferior medial labia into the distal vagina, also palpable along the distal posterior vagina. It also does now extend more towards the anus as well. On exam under anesthesia, with placing manual pressure over the area in the distal vagina/medial labia, to expose the area for the I and D, with the manual pressure there was noted to then be spontaneous drainage of purulent material seen coming through the anus, thus revealing an evident perirectal abscess. Consult placed to general surgeon non categorical preschool teacher, Dr Braxton. Surgeon: Beatrice Vazquez Operative Notes Findings: Perirectal abscess, extending to work perineum and inferior vulva, posterior vagina Closure Type: not applicable Specimen(s): other (wound culture) Estimated Blood Loss (mL): 5 Blood products transfused: none Procedure in detail: Patient seen in office with an acute tender abscess developed over the prior few days, with a tender cystic area bulging along her right inferior labia and inferior vulva, bulging mildly in to her distal right vagina. It also extended somewhat into the perineum towards the anus. It appeared most likely to be Bartholin's, extending into perineum, but was somewhat atypical, not bulging quite as much as a Bartholin's would bulge. It did not have a typical location for a perirectal abscess either. She had desired drainage gender anesthesia. I did discuss with her if it ended up being a perirectal abcess and not a Bartholin's, then I would obtained an intraoperative surgical consult. Since her prior exam, it has increased size, visible as a larger than golf ball size bulge along the inferior vulva and right perineum, and on palpation does folds at the inferior medial labia into the distal vagina, also palpable along the distal posterior vagina. It also does now extend more towards the anus as well. On exam under anesthesia, with placing manual pressure over the area in the distal vagina/medial labia, to expose the area for the I and D, with the manual pressure there was noted to then be spontaneous drainage of purulent material seen coming through the anus, thus revealing an evident perirectal abscess. Consult placed to general surgeon non categorical preschool teacher, Dr Braxton. Complications: none Post-operative Condition: stable Disposition: PACU Plan for aftercare: I reviewed the findings and procedure with her postoperatively. She was instructed to remove the packing in 24 hours after sitting in a Sitz bath the water. She will do twice daily Sitz baths Follow up with general surgeon Dr. Braxton 1-2 weeks
--- NOTE | 2019-12-04 14:50 | SUR.PHASEII ---
Late entry: Dr. Vazquez spent time with pt at bedside discussing d/c instructions. Pt ready to go, dressed and left in stable condition.
== END 2019-12-04 13:11 | disposition home or self-care (01) ==
PROVIDERS: PCP Family Medicine; Referring Provider Obstetrics & Gynecology; Visit Provider Obstetrics & Gynecology
PROC: (CPT 56440; principal; 2019-12-04 09:45)
DX: K61.1 Rectal abscess (principal); F17.210 Nicotine dependence, cigarettes, uncomplicated; E03.9 Hypothyroidism, unspecified
CPT/HCPCS: 46045; 87070; 87075; 87076; 87077; 87205; J1100; J2405; J2543; J2704; J3010

== ENCOUNTER → 2019-12-27 08:30 | Outpatient (CLI) | payer OTHER, MEDICAID, SELFPAY ==
[2019-12-28 08:40] LABS: COVID19 Sendout Not Detected (Not Detect)
== END ==
PROVIDERS: PCP Family Medicine; Visit Provider Nurse Practitioner
DX: Z01.812 Encounter for preprocedural laboratory examination (principal)
CPT/HCPCS: 87635

== ENCOUNTER 2019-12-30 12:11 | Day surgery (SDC) | payer OTHER, MEDICAID, SELFPAY ==
[2019-12-30] VITALS (7 sets, daily range): BP systolic 104–132; BP diastolic 57–76; PULSE 73–102; RESP 14–16; TEMP 36.2–36.8; O2SAT 97–99; BMI 34.6
--- NOTE | 2019-12-30 12:28 | PM.PREOP ---
Pre-operative Note COVID-19 COVID-19 status: Negative Result date/Date tested (Pos, Neg/Pending): 12/27/19 Interval Note History & Physical reviewed/Exam performed by Physician: Yes Changes to H&P: No
--- NOTE | 2019-12-30 12:56 | SUR.PREOP ---
[address] Braxton that the patient will be home alone and has a neighbor that she can call for help if needed and that a friend will be taking her home.
[2019-12-30] MEDS: metroNIDAZOLE 500 MG/100 ML PIGGYBACK 100 MG IV (12:57)
[2019-12-30] MEDS: levoFLOXacin 500 MG/100 ML PIGGYBACK 100 MG IV (13:14)
[2019-12-30] MEDS: ACETAMINOPHEN IV 1,000 MG/100 ML VIAL 400 MG IV (13:30)
--- NOTE | 2019-12-30 13:31 | SUR.OPER ---
Prone on padded OR bed, head in foam head support, gel chest rolls, gel pad under knees, pillow under lower legs, toes free of pressure, arms secured on padded arm boards at <90 degrees abduction. Safety belt at thigh.
[2019-12-30] MEDS: BUPIVACAINE 0.25% W/ EPI 30 ML VIAL INJ (13:39)
[2019-12-30] MEDS: BUPIVACAINE LIPOSOME 266 MG/20 ML VIAL INJ (13:40)
[2019-12-30] MEDS: DIBUCAINE 1% OINT 28 GM 1 APPLIC TOP (13:41)
[2019-12-30] MEDS: METHYLENE BLUE 50 MG/10 ML VIAL INJ (13:48)
--- NOTE | 2019-12-30 14:07 | PM.OP.1 ---
Operative Date/Time/Diagnoses Date of procedure: 12/30/19 Time of procedure: 14:07 Pre-op diagnosis: anal fistula Post-op diagnosis: other (chronic posterior midline anal fissure, healing anal fistula) Procedure & Clinicians Procedure: Fissurectomy and closure, currette debridement of perianal abscess cavity and fistula tract; internal lateral sphincterotomy Same procedure as scheduled: Yes Indications: This is a 34 yo woman with anal fistula discovered in the OR two weeks ago with perianal abscess, which continues to drain Surgeon: Rena Braxton Click Yes if Unassisted: Yes Anesthesia Type: General Operative Notes Findings: Chronic and heavily scarred anal fissure at anterior midline with exposed sphincter muscle; chronic abscess cavity with partiallly closed fistula tract; Methylene blue did not reveal fistula tract Specimen(s): none sent Estimated Blood Loss (mL): 1 Blood products transfused: none Procedure in detail: The patient was brought into the OR. Sequential compression devices were placed on both legs and turned on. Appropriate perioperative antibiotics were given. General anesthesia was induced and the patient was intubated. The patient was turned prone onto the OR table. All bony prominences were padded. The buttocks were taped apart. The perianal area was prepped and draped in sterile fashion with betadine prep. Surgical timeout was conducted. 0.25% Marcaine with epi was used to perform a four quadrant anal block using 5mL per quadrant for a total of 20mL. On external exam there was a small incision from her prior surgery on the right perineum between the anoderm and the vaginal opening. I also noted heavily scarred fissure with exposed sphincter muscle at the anterior midline. A rounded probe was placed into abscess cavity incisional opening and directed towards the anal area. The abscess cavity was obvious, but there was no clear tract going into the anal vault. I did not push through, in order to avoid creating a new fistula. I then created a dilute mixture of methylene blue in saline, and injected this into the abscess cavity using an Angiocath and a 10 cc syringe. The methylene blue drained back out of the abscess cavity, and no methylene blue was seen in the anal canal. At this point was clear to me that the fistula tract was beginning to close, and if there is remaining fistula tract it is very tiny. Therefore I went ahead and curetted out the abscess cavity of any chronic or nonhealing tissue so that it would become an acute wound in would continue to close down. The abscess cavity was packed with quarter-inch strip gauze for hemostasis. I then addressed the chronic fissure, by using a fresh 15 blade to excise the scar tissue overlying the sphincter muscle. All of the muscle was spared, and once the chronic scar tissue was removed I closed the anoderm over the exposed muscle using a running 4 0 chromic suture. [Attention was then turned to the left lateral anoderm at 9:00 position. A small skin incision was made overlying the anal sphincter muscle. The skin was opened and dissection was carried down to the anal sphincter using a mosquito clamp. The internal sphincter was located and 3mm of muscle was divided, consistent with the length of the fissure. The anoderm was closed with 4-0 moncryl suture. ] [20mL of Exparel was used to inject the anoderm and anal canal circumferentially 2-3mL per cm. ] A large Gelfoam was then coated and rolled with Dibucaine and placed in the anal canal. A thick layer of Dibucaine was used to coat the anoderm. A stack of 4x4 gauze was then used to cover the anal opening and secured in place with medipore tape. The patient was transferred onto her hospital bed into supine position. She was then awakened from anesthesia and extubated. Needle, sponge, and instrument counts were correct x 2. The patient was transferred to the PACU in stable condition. Complications: none Post-operative Condition: stable Disposition: PACU
--- NOTE | 2019-12-30 16:52 | SUR.PHASEII ---
Late entry: Assumed care of pt, dressing to rectum has small amount of bloody drainage on gauze pads, outer camilla pad c/d/i. Pt up to BR to get dressed, steay when up. Pt left when ready and left in stable condition.
== END 2019-12-30 15:10 | disposition home or self-care (01) ==
PROVIDERS: PCP Family Medicine; Referring Provider Surgery; Visit Provider Surgery
PROC: (CPT 45990; principal; 2019-12-30 13:45)
DX: K60.1 Chronic anal fissure (principal); K60.3 Anal fistula; E03.9 Hypothyroidism, unspecified; K21.9 Gastro-esophageal reflux disease without esophagitis; F32.9 Major depressive disorder, single episode, unspecified; F17.210 Nicotine dependence, cigarettes, uncomplicated; K22.70 Barrett's esophagus without dysplasia
CPT/HCPCS: 46200; C9290; J0131; J1100; J1956; J2250; J2405; J2704; J3010; Q9968

== ENCOUNTER → 2020-01-25 13:37 | Outpatient (CLI) | payer OTHER, MEDICAID, SELFPAY ==
[2020-01-25 15:00] LABS: TSH w/ Reflex to FT4 0.77 uIU/mL (0.47-4.68)
== END ==
PROVIDERS: PCP Family Medicine; Referring Provider Family Medicine; Visit Provider Family Medicine
DX: E03.9 Hypothyroidism, unspecified (principal); R53.83 Other fatigue; R63.5 Abnormal weight gain
CPT/HCPCS: 36415; 84443

== ENCOUNTER 2020-02-14 16:42 | Emergency (ER) | payer OTHER, MEDICAID, SELFPAY ==
[2020-02-14 16:49] VITALS: BP 106/55; PULSE 116; RESP 24; TEMP 36.8
[2020-02-14 17:17] LABS: Bacteria Urine None Seen
[2020-02-14 17:19] LABS: Add Manual Diff / Slide Review NO; Basophils Absolute Auto 100 /uL (0-100); Basophils Percent Auto 0.8 % (0-2); Eosinophils Absolute Auto 0 /uL (0-450); Eosinophils Percent Auto 0.1 % (2-4); Hematocrit 38.8 % (36-46); Hemoglobin 12.8 g/dL (12.0-16.0); Lymphocytes Absolute Auto 3000 /uL (1100-4500); Lymphocytes Percent Auto 23.3 % (25-40); Mean Corpuscular Hemoglobin 27.8 PG (26-34); Mean Corpuscular Volume 84.4 fL (80-100); Monocytes Absolute Auto 1100 /uL (0-900); Monocytes Percent Auto 8.4 % (3-14); Neutrophils Absolute Auto 8800 /uL (1500-7000); Neutrophils Percent Auto 67.4 % (50-75); Platelet Count 333 X10^3/uL (150-400); Red Blood Cell Count 4.59 X10^6/uL (4.0-5.2); White Blood Cell Count 13.1 X10^3/uL (4.5-11.0)
[2020-02-14 17:27] LABS: UR Morphine/Opiate cutoff 300 Negative (Negative); Ur Creatinine Normal (Normal); Ur Specific Gravity Normal (Normal); Urine Amphetamines Negative (Negative); Urine Barbiturates Negative (Negative); Urine Benzodiazepines Negative (Negative); Urine Cocaine Negative (Negative); Urine MDMA Negative (Negative); Urine Methadone Negative (Negative); Urine Methamphetamines Negative (Negative); Urine Oxycodone Negative (Negative); Urine Phencyclidine Negative (Negative); Urine Tetrahydrocannabinol Positive (Negative); Urine Tricyclic Antidepressant Negative (Negative); Urine pH Normal (Normal)
[2020-02-14 17:35] LABS: Culture Indicated Urine Cult Not Indicated; RBC Urine 0-1/HPF (0-5/HPF); Squamous Epithelial Cell Urine 0-1 /HPF (0-5/HPF); WBC Urine 0-1/HPF (0-5/HPF)
[2020-02-14 17:36] LABS: Acetaminophen < 10 ug/mL (10-30); Alanine Aminotransferase 16 IU/L (<35); Albumin 4.5 g/dL (3.5-5.0); Albumin Globulin Ratio 1.4 (1.0-2.8); Alkaline Phosphatase 69 U/L (38-126); Aspartate Aminotransferase 28 IU/L (14-36); Bilirubin Total 0.4 mg/dL (0.2-1.3); Blood Urea Nitrogen 9 mg/dL (7-17); Calcium 9.5 mg/dL (8.4-10.2); Carbon Dioxide 27 mmol/L (22-32); Chloride 103 mmol/L (98-107); Estimated Glomerular Filt Rate > 60.0 mL/min (>60); Ethanol (ETOH) < 10 mg/dL; Globulin 3.2 g/dL (1.7-4.1); Glucose 94 mg/dL (70-100); HEMOLYSIS 20 (0-50); Salicylate < 1.0 mg/dL (<20); Sodium 136 mmol/L (137-145); Total Protein 7.7 g/dL (6.3-8.2)
[2020-02-14 18:05] LABS: Free T4, Direct Thyroxine 1.01 ng/dL (0.78-2.19)
--- NOTE | 2020-02-14 18:12 | ED_ITS ---
HPI - Medical Clearance <STONEY Carias - Last Filed: 02/14/20 21:55> General Chief complaint: Medical Clearance Stated complaint: Medical Clearance for Detox Time Seen by Provider: 02/14/20 16:49 Source: patient Mode of arrival: Ambulatory Limitations: no limitations History of Present Illness HPI Narrative: This is a 34 year female, current smoker, presents to ED requesting medical clearance for her to proceed going into [facility] center for marijuana addiction. Patient reports she has been using marijuana since age 14 or 15 years old and she had stop using for 10 years in between 2007 through 2017. She was sober for 4 months and relapsed about a month ago. She is curr ently using 6-8 g of marijuana and noticed using increasing doses recently. Patient reports has been sober since June this year. She joined a group for alcohol and marijuana use. She denies using other illicit drugs. Patient reports she has other mental illnesses and take currently medications depression, anxiety, OCD, PTSD, psychosis and agitation. Patient denies suicidal or homicidal ideations. Related Information Home Medications Medication Instructions Recorded Confirmed bupropion HCl 300 mg 24 hr tablet, 300 mg PO QAM 08/28/19 01/12/20 extended release fluoxetine 40 mg capsule 80 mg PO DAILY cap 08/28/19 01/12/20 gabapentin 300 mg capsule 300 mg PO QID 08/28/19 01/12/20 prazosin 1 mg capsule 1 mg PO BEDTIME 08/28/19 01/12/20 olanzapine 5 mg tablet 5 mg PO DAILY PRN 12/02/19 01/12/20 bupropion HCl mg PO 02/14/20 fluoxetine mg 02/14/20 gabapentin 02/14/20 olanzapine mg 02/14/20 olanzapine mg 02/14/20 Previous Rx's Medication Instructions Recorded ibuprofen 800 mg PO Q6H PRN #90 tab 12/30/19 levothyroxine 50 mcg tablet 50 mcg PO DAILY #90 tab 01/27/20 Allergies Allergy/AdvReac Type Severity Reaction Status Date / Time soy [SOY] Allergy Severe ANAPHYLAXIS Verified 02/14/20 16:53 lurasidone [From Latuda] Allergy Intermediate Confusion Verified 02/14/20 16:53 adhesive [ADHESIVE] Allergy Unknown PAINFUL TO Verified 02/14/20 16:53 SKIN, BURST BLOOD VESSELS aripiprazole [From ABILIFY] AdvReac Severe PSYCHOSIS Verified 02/14/20 16:53 hydromorphone [From DILAUDID] AdvReac Severe VISUAL Verified 02/14/20 16:53 AND AUDITORIAL HALLUCINATION zolpidem [From AMBIEN] AdvReac Severe RESTLESSNES Verified 02/14/20 16:53 S morphine [MORPHINE] AdvReac Intermediate HALLUCINATI Verified 02/14/20 16:53 ONS promethazine [From PHENERGAN] AdvReac Intermediate UNPLEASANT Verified 02/14/20 16:53 FEELING codeine [CODEINE] AdvReac Mild NAUSEA AND Verified 02/14/20 16:53 VOMITING Review of Systems <STONEY Carias - Last Filed: 02/14/20 21:55> Review of Systems Narrative: General: Denies fever, chills, fatigue, malaise, sweats. HEENT: Denies sinus pain, ear pain, sore throat, difficulty swallowing, di zziness. Respiratory: Denies dyspnea, cough, wheezing, hemoptysis, sputum. Cardiovascular: Denies chest pain, palpitations, orthopnea, edema. Gastrointestinal: Denies nausea, vomiting, abdominal pain, diarrhea, constipation, melena. : Denies dysuria, frequency, incontinence, hematuria, urinary retention. Musculoskeletal: Denies weakness, joint pain or bony pain. Skin: Denies rash, skin lesions, or other. Neurologic: Denies weakness, headache, numbness, change in speech, confusion, seizures, incoordination. Psychiatric: No concerning psychosocial issues. 12-point review of systems is negative except for those stated above. Patient History <STONEY Carais - Last Filed: 02/14/20 21:55> Medical History Abdominal wall hernia (Acute) Anal fistula (Inactive) Asthma (Acute) Jackson's esophagus (Acute) Chronic cough (Acute) Depression (Acute) Easy bruisability (Acute) Elevated cholesterol (Acute) GERD (gastroesophageal reflux disease) (Acute) Headache (Acute) Hypothyroidism (Acute) Perianal abscess (Inactive) Suicidal ideation (Acute) Well female exam without gynecological exam (Acute) Surgical History History of surgery (Acute 12/04/19) Hx of abdominal surgery (Acute 2017) Status post breast lumpectomy Status post delivery Status post dilation and curettage Status post laparoscopy Status post surgery (04/10/17) Family History Brother Age: 37 Cerebral palsy, unspecified type Father Heart disease Essential hypertension High cholesterol Mental health problem Mother Age: 68 Diabetes mellitus Mental health problem Grandmother Alzheimer's disease Mental health problem Sister Mental health problem Sister Age: 44 Mental health problem Social History household members: children and none Smoking Status: Current every day smoker quit status: not considering quitting second hand exposure: No alcohol intake: former substance use type: marijuana (vape) Smoking Status: Current every day smoker tobacco type: cigarettes alcohol intake frequency: holidays/special occasions only Substance Use Type: marijuana and sedatives Exam <STONEY Carias - Last Filed: 02/14/20 21:55> Narrative Exam Narrative: General appearance: well developed, well nourished, in no acute distress. Head: normocephalic, atraumatic, no scalp lesions, non-tender. ENT: Hearing grossly intact. Nose without bleeding, purulent discharge. Airway patent. Neck/Thyroid: neck supple, full range of motion, no visible masses or meningeal signs. No JVD, non-tender without lymphadenopathy. Skin: no suspicious rashes, lesions over visible areas. Warm and dry and appropriate color for ethnicity. Heart: no clubbing, no cyanosis, no edema. S1 and S2 normal. RRR w/o murmurs, clicks, or bruits. Lungs: Breathing even and unlabored. No stridor. No accessory muscles used. Able to speak in full sentences. Chest: normal shape and expansion. Abdomen: non-obese, non-distended. Neurologic: alert and oriented. Cognitive exam, WASHHOUSE HAND and PNS grossly intact on informal exam. Psych: good eye contact, normal affect. Initial Vital Signs Initial Vital Signs: Vital Signs Temperature 98.3 F 02/14/20 16:49 Pulse Rate 116 H 02/14/20 16:49 Respiratory Rate 24 02/14/20 16:49 Blood Pressure 106/55 L 02/14/20 16:49 Psych Appearance: grossly normal Mental Status: mental status grossly normal Speech and Movement: speech and movement normal Mood: congruent mood Affect: normal affect Attitude: cooperative Thought Process: normal Thought Content: normal Judgment: judgment good <Yasmin Benavidez DO - Last Filed: 02/17/20 07:37> Initial Vital Signs Initial Vital Signs: Vital Signs Temperature 98.3 F 02/14/20 16:49 Pulse Rate 116 H 02/14/20 16:49 Respiratory Rate 24 02/14/20 16:49 Blood Pressure 106/55 L 02/14/20 16:49 Scores <Jong YooSTONEY Royal - Last Filed: 02/14/20 21:55> GCS Cindy coma scale eye opening: Spontaneous Cindy coma scale verbal response: Orientated [place] coma scale motor response: Obey commands Cindy coma scale total score: 15 MDM - Medical Clearance <Jong PetersenSTONEY Davis - Last Filed: 02/14/20 21:55> Differential Diagnosis Differential diagnosis: Likely other (Medical clearance) Medical Records Attestation: I reviewed the patient's medical records. Lab Data Attestation: I reviewed the patient's lab results. Result diagrams: 02/14/20 17:03 02/14/20 17:03 Labs: Lab Results 02/14/20 02/14/20 02/14/20 Range/Units 17:03 17:03 17:03 WBC 13.1 H (4.5-11.0) X10^3/uL RBC 4.59 (4.0-5.2) X10^6/uL Hgb 12.8 (12.0-16.0) g/dL Hct 38.8 (36-46) % MCV 84.4 (80-100) fL MCH 27.8 (26-34) PG MCHC 33.0 (30-36) % RDW 16.0 H (11.6-14.8) % Plt Count 333 (150-400) X10^3/uL Neut % (Auto) 67.4 (50-75) % Lymph % (Auto) 23.3 L (25-40) % [place] % (Auto) 8.4 (3-14) % Eos % (Auto) 0.1 L (2-4) % Baso % (Auto) 0.8 (0-2) % Neut # (Auto) 8800 H (7198-5099) /uL Lymph # (Auto) 3000 (4923-9216) /uL [place] # (Auto) 1100 H (0-900) /uL Eos # (Auto) 0 (0-450) /uL Baso # (Auto) 100 (0-100) /uL Sodium 136 L (137-145) mmol/L Potassium 4.0 (3.4-5.1) mmol/L Chloride 103 (98-107) mmol/L Carbon Dioxide 27 (22-32) mmol/L BUN 9 (7-17) mg/dL Creatinine 0.82 (0.52-1.04) mg/dL Estimated GFR > 60.0 (>60) mL/min BUN/Creatinine Ratio 11.0 (6-22) Glucose 94 (70-100) mg/dL Calcium 9.5 (8.4-10.2) mg/dL Total Bilirubin 0.4 (0.2-1.3) mg/dL AST 28 (14-36) IU/L ALT 16 (<35) IU/L Alkaline Phosphatase 69 (38-126) U/L Total Protein 7.7 (6.3-8.2) g/dL Albumin 4.5 (3.5-5.0) g/dL Globulin 3.2 (1.7-4.1) g/dL Albumin/Globulin Ratio 1.4 (1.0-2.8) TSH 0.833 (0.47-4.68) uIU/mL Free T4 1.01 (0.78-2.19) ng/dL Urine RBC (0-5/HPF) Urine WBC (0-5/HPF) Ur Squamous Epith Cells (0-5/HPF) Urine Bacteria (None) Ur Culture Indicated? Salicylates < 1.0 (<20) mg/dL U Opiates 300ng/mL cut (Negative) Ur Oxycodone Screen (Negative) Urine Methadone Screen (Negative) Acetaminophen < 10 L (10-30) ug/mL Ur Barbiturates Screen (Negative) U Tricyclic Antidepress (Negative) Ur Phencyclidine Scrn (Negative) Ur Amphetamines Screen (Negative) U Methamphetamines Scrn (Negative) Ur MDMA Scrn (Ecstasy) (Negative) U Benzodiazepines Scrn (Negative) Urine Cocaine Screen (Negative) U Marijuana (THC) Screen (Negative) Ethyl Alcohol < 10 ( - 10) mg/dL 02/14/20 02/14/20 Range/Units 17:03 17:03 WBC (4.5-11.0) X10^3/uL RBC (4.0-5.2) X10^6/uL Hgb (12.0-16.0) g/dL Hct (36-46) % MCV (80-100) fL MCH (26-34) PG MCHC (30-36) % RDW (11.6-14.8) % Plt Count (150-400) X10^3/uL Neut % (Auto) (50-75) % Lymph % (Auto) (25-40) % [place] % (Auto) (3-14) % Eos % (Auto) (2-4) % Baso % (Auto) (0-2) % Neut # (Auto) (2858-7215) /uL Lymph # (Auto) (7030-3283) /uL [place] # (Auto) (0-900) /uL Eos # (Auto) (0-450) /uL Baso # (Auto) (0-100) /uL Sodium (137-145) mmol/L Potassium (3.4-5.1) mmol/L Chloride (98-107) mmol/L Carbon Dioxide (22-32) mmol/L BUN (7-17) mg/dL Creatinine (0.52-1.04) mg/dL Estimated GFR (>60) mL/min BUN/Creatinine Ratio (6-22) Glucose (70-100) mg/dL Calcium (8.4-10.2) mg/dL Total Bilirubin (0.2-1.3) mg/dL AST (14-36) IU/L ALT (<35) IU/L Alkaline Phosphatase (38-126) U/L Total Protein (6.3-8.2) g/dL Albumin (3.5-5.0) g/dL Globulin (1.7-4.1) g/dL Albumin/Globulin Ratio (1.0-2.8) TSH (0.47-4.68) uIU/mL Free T4 (0.78-2.19) ng/dL Urine RBC 0-1/hpf (0-5/HPF) Urine WBC 0-1/hpf (0-5/HPF) Ur Squamous Epith Cells 0-1 /hpf (0-5/HPF) Urine Bacteria None seen (None) Ur Culture Indicated? Cult not indicated Salicylates (<20) mg/dL U Opiates 300ng/mL cut Negative (Negative) Ur Oxycodone Screen Negative (Negative) Urine Methadone Screen Negative (Negative) Acetaminophen (10-30) ug/mL Ur Barbiturates Screen Negative (Negative) U Tricyclic Antidepress Negative (Negative) Ur Phencyclidine Scrn Negative (Negative) Ur Amphetamines Screen Negative (Negative) U Methamphetamines Scrn Negative (Negative) Ur MDMA Scrn (Ecstasy) Negative (Negative) U Benzodiazepines Scrn Negative (Negative) Urine Cocaine Screen Negative (Negative) U Marijuana (THC) Screen Positive H (Negative) Ethyl Alcohol ( - 10) mg/dL Point of Care Testing Test Results Negative Urine Dip Bedside Urine Glucose Negative Bedside Urine Bilirubin - Negative Bedside Urine Ketone - Negative Urine Specific Merlin 1.010 Bedside Urine Occult Blood + Bedside Urine pH 6.0 Bedside Urine Protein - Negative Bedside Urine Urobilinogen - Negative Bedside Urine Nitrite - Negative Bedside Urine Leukocytes - Negative Esterase MDM Narrative Medical decision making narrative: This is a 34 year female who presents to ED in request of medical clearance to go [facility] for marijuana dependency. Patient admits using marijuana about 6-8 g per day which she had used before coming into ED. patient denies suicidal or homicidal ideation. She has been compliant with routine medications for mental health illness such as anxiety, depression, OCD, PTSD, psychosis and agitation. Patient has been cooperative and expressed she will like to be sober from using marijuana daily. Stable H&H, unremarkable chemistry, within normal TSH and T4, negative test, no indication for urinary tract infection. Urine drug screen shows positive for THC. Patient is medically cleared to go to [facility] and she denies signs and symptoms for covid 19, exposure to Covid 19 patients or recent travel. <Yasmin Benavidez, - Last Filed: 02/17/20 07:37> Lab Data Labs: Lab Results 02/14/20 02/14/20 02/14/20 Range/Units 17:03 17:03 17:03 WBC 13.1 H (4.5-11.0) X10^3/uL RBC 4.59 (4.0-5.2) X10^6/uL Hgb 12.8 (12.0-16.0) g/dL Hct 38.8 (36-46) % MCV 84.4 (80-100) fL MCH 27.8 (26-34) PG MCHC 33.0 (30-36) % RDW 16.0 H (11.6-14.8) % Plt Count 333 (150-400) X10^3/uL Neut % (Auto) 67.4 (50-75) % Lymph % (Auto) 23.3 L (25-40) % [place] % (Auto) 8.4 (3-14) % Eos % (Auto) 0.1 L (2-4) % Baso % (Auto) 0.8 (0-2) % Neut # (Auto) 8800 H (5069-4676) /uL Lymph # (Auto) 3000 (2185-2126) /uL [place] # (Auto) 1100 H (0-900) /uL Eos # (Auto) 0 (0-450) /uL Baso # (Auto) 100 (0-100) /uL Sodium 136 L (137-145) mmol/L Potassium 4.0 (3.4-5.1) mmol/L Chloride 103 (98-107) mmol/L Carbon Dioxide 27 (22-32) mmol/L BUN 9 (7-17) mg/dL Creatinine 0.82 (0.52-1.04) mg/dL Estimated GFR > 60.0 (>60) mL/min BUN/Creatinine Ratio 11.0 (6-22) Glucose 94 (70-100) mg/dL Calcium 9.5 (8.4-10.2) mg/dL Total Bilirubin 0.4 (0.2-1.3) mg/dL AST 28 (14-36) IU/L ALT 16 (<35) IU/L Alkaline Phosphatase 69 (38-126) U/L Total Protein 7.7 (6.3-8.2) g/dL Albumin 4.5 (3.5-5.0) g/dL Globulin 3.2 (1.7-4.1) g/dL Albumin/Globulin Ratio 1.4 (1.0-2.8) TSH 0.833 (0.47-4.68) uIU/mL Free T4 1.01 (0.78-2.19) ng/dL Urine RBC (0-5/HPF) Urine WBC (0-5/HPF) Ur Squamous Epith Cells (0-5/HPF) Urine Bacteria (None) Ur Culture Indicated? Salicylates < 1.0 (<20) mg/dL U Opiates 300ng/mL cut (Negative) Ur Oxycodone Screen (Negative) Urine Methadone Screen (Negative) Acetaminophen < 10 L (10-30) ug/mL Ur Barbiturates Screen (Negative) U Tricyclic Antidepress (Negative) Ur Phencyclidine Scrn (Negative) Ur Amphetamines Screen (Negative) U Methamphetamines Scrn (Negative) Ur MDMA Scrn (Ecstasy) (Negative) U Benzodiazepines Scrn (Negative) Urine Cocaine Screen (Negative) U Marijuana (THC) Screen (Negative) Ethyl Alcohol < 10 ( - 10) mg/dL 02/14/20 02/14/20 Range/Units 17:03 17:03 WBC (4.5-11.0) X10^3/uL RBC (4.0-5.2) X10^6/uL Hgb (12.0-16.0) g/dL Hct (36-46) % MCV (80-100) fL MCH (26-34) PG MCHC (30-36) % RDW (11.6-14.8) % Plt Count (150-400) X10^3/uL Neut % (Auto) (50-75) % Lymph % (Auto) (25-40) % [place] % (Auto) (3-14) % Eos % (Auto) (2-4) % Baso % (Auto) (0-2) % Neut # (Auto) (2429-5461) /uL Lymph # (Auto) (3872-9401) /uL [place] # (Auto) (0-900) /uL Eos # (Auto) (0-450) /uL Baso # (Auto) (0-100) /uL Sodium (137-145) mmol/L Potassium (3.4-5.1) mmol/L Chloride (98-107) mmol/L Carbon Dioxide (22-32) mmol/L BUN (7-17) mg/dL Creatinine (0.52-1.04) mg/dL Estimated GFR (>60) mL/min BUN/Creatinine Ratio (6-22) Glucose (70-100) mg/dL Calcium (8.4-10.2) mg/dL Total Bilirubin (0.2-1.3) mg/dL AST (14-36) IU/L ALT (<35) IU/L Alkaline Phosphatase (38-126) U/L Total Protein (6.3-8.2) g/dL Albumin (3.5-5.0) g/dL Globulin (1.7-4.1) g/dL Albumin/Globulin Ratio (1.0-2.8) TSH (0.47-4.68) uIU/mL Free T4 (0.78-2.19) ng/dL Urine RBC 0-1/hpf (0-5/HPF) Urine WBC 0-1/hpf (0-5/HPF) Ur Squamous Epith Cells 0-1 /hpf (0-5/HPF) Urine Bacteria None seen (None) Ur Culture Indicated? Cult not indicated Salicylates (<20) mg/dL U Opiates 300ng/mL cut Negative (Negative) Ur Oxycodone Screen Negative (Negative) Urine Methadone Screen Negative (Negative) Acetaminophen (10-30) ug/mL Ur Barbiturates Screen Negative (Negative) U Tricyclic Antidepress Negative (Negative) Ur Phencyclidine Scrn Negative (Negative) Ur Amphetamines Screen Negative (Negative) U Methamphetamines Scrn Negative (Negative) Ur MDMA Scrn (Ecstasy) Negative (Negative) U Benzodiazepines Scrn Negative (Negative) Urine Cocaine Screen Negative (Negative) U Marijuana (THC) Screen Positive H (Negative) Ethyl Alcohol ( - 10) mg/dL Point of Care Testing Test Results Negative Urine Dip Bedside Urine Glucose Negative Bedside Urine Bilirubin - Negative Bedside Urine Ketone - Negative Urine Specific [place] 1.010 Bedside Urine Occult Blood + Bedside Urine pH 6.0 Bedside Urine Protein - Negative Bedside Urine Urobilinogen - Negative Bedside Urine Nitrite - Negative Bedside Urine Leukocytes - Negative Esterase Discharge Plan Departure Patient Disposition: Home Clinical Impression: Encounter for medical clearance for patient hold, Marijuana dependence Discharge Date/Time: 02/14/20 21:10 Activity Restrictions/Additional Instructions: You have been diagnosed with [medical clearance for going to [facility] detox facility for marijuana dependence]. What to do: *Take your medications as directed. *Follow up with your primary care provider in 2-3 days, call for an appointment. Let them know you were seen in the ED and that we asked you to be seen in follow up. *Return to ED if you have any new, worsening, or concerning symptoms, such as [chest pain, breathing difficulty, unable to tolerate fluids, fever, or any acute concerns]. Good luck with the detox process. Prescriptions: No Action bupropion HCl [Wellbutrin XL] 300 mg tablet extended release 24 hr 300 mg PO QAM RF: 0 gabapentin 300 mg capsule 300 mg PO QID RF: 0 prazosin 1 mg capsule 1 mg PO BEDTIME RF: 0 fluoxetine 40 mg capsule 80 mg PO DAILY RF: 0 olanzapine [Zyprexa] 5 mg tablet 5 mg PO DAILY PRN (Reason: Delirium) RF: 0 levothyroxine 50 mcg tablet 50 mcg PO DAILY Qty: 90 RF: 1 ibuprofen 800 mg tablet 800 mg PO Q6H PRN (Reason: post operative pain) Qty: 90 RF: 0 fluoxetine 40 mg capsule RF: 0 bupropion HCl 300 mg tablet extended release 24 hr PO RF: 0 gabapentin 100 mg capsule RF: 0 olanzapine 10 mg tablet RF: 0 olanzapine 10 mg tablet RF: 0 Referrals: Thad Harden DO [Primary Care Provider] - <Yasmin Benavidez DO - Last Filed: 02/17/20 07:37> [facility] ED Attending Melida Attestation: I was immediately available in the department for consultation. Documentation has been reviewed. I agree with assessment and plan.
[2020-02-14 18:19] LABS: Thyroid Stimulating Hormone 0.833 uIU/mL (0.47-4.68)
[2020-02-14 19:34] VITALS: BP 112/71; PULSE 75; RESP 18; O2SAT 98
--- NOTE | 2020-02-14 19:39 | PC.NURSE ---
Pt given snack, updated to plan of care. Sitting on bed without distress.
[2020-02-14 20:47] VITALS: BP 111/68; PULSE 66; RESP 18; TEMP 36.8; O2SAT 99
== END 2020-02-14 21:10 | disposition home or self-care (01) ==
PROVIDERS: Emergency Provider Nurse Practitioner Family; PCP Family Medicine
DX: F12.20 Cannabis dependence, uncomplicated (principal)
CPT/HCPCS: 80053; 80305; 80320; 80329; 81003; 81015; 81025; 84439; 84443; 85025; 99282; G0480

== ENCOUNTER → 2020-05-18 13:41 | Outpatient (CLI) | payer OTHER, MEDICAID, SELFPAY ==
--- NOTE | 2020-05-18 13:43 | DI.MRI.S_ITS ---
PROCEDURE: MR PELIS WO/W CON INDICATIONS: anorectal fistula TECHNIQUE: Coronal HASTE through the pelvis, oblique axial and coronal T1 and T2 fast spin echo through the anal canal. After the administration of contrast, oblique axial and coronal VIBE or T1 fast spin echo with fast saturation through the anal canal. COMPARISON: None. FINDINGS: Image quality: Excellent. Anorectal region: No perianal or perirectal abscesses identified. There is, however, a thin rim enhancing short fistula extending from the 11 o'clock position of the right anterior anal border approximately 1 cm cephalad from the anal verge, and tracks anteriorly for short distance of approximately 1.5 cm to intersect the bright perineum at its cutaneous border. The origin can be seen with contrast enhancement on series 10 image 136 just to the right of midline, and its anterior extent tracks forward to a rim enhancing centrally low signal intensity 9 mm diameter structure seen on series 10, image 147 that may represent a prior abscess cavity. This then tracks further forward and inferiorly to intersect the skin surface at series 10, image 155 to the right of midline at the posterior border of the right labia minora. No inflammatory fat stranding. Other soft tissues: Bladder wall thickness is normal. No free pelvic fluid. Visualized bowel loops are normal in caliber. Bones: Visualized bony structures demonstrate normal marrow signal. IMPRESSION: Small perianal fistula tracking from the anterior right paramedian anal border forward and inferiorly to the skin surface at the right paramedian perineum with only approximately a 1.5 cm AP dimension track. No undrained fluid collection found. Along the middle 3rd of that track is a rounded possible remnant of a an abscess cavity measuring approximately 8 x 10 mm containing no identifiable residual fluid within. Dictated by: Juan Hughes M.D. on 05/18/2020 at 15:09 Approved by: Juan Hughes M.D. on 05/18/2020 at 15:20
== END ==
PROVIDERS: PCP Family Medicine; Referring Provider Surgery; Visit Provider Surgery
DX: K60.3 Anal fistula (principal)
CPT/HCPCS: 72197

== ENCOUNTER → 2020-06-28 15:24 | Outpatient (CLI) | payer OTHER, MEDICAID, SELFPAY ==
[2020-06-28 16:11] LABS: COVID19 -Nasal RAPID Negative (Negative)
== END ==
PROVIDERS: PCP Family Medicine; Visit Provider Surgery
DX: Z01.812 Encounter for preprocedural laboratory examination (principal); Z20.822 Contact with and (suspected) exposure to COVID-19
CPT/HCPCS: 87635; C9803

== ENCOUNTER 2020-06-29 07:48 | Day surgery (SDC) | payer OTHER, MEDICAID, SELFPAY ==
[2020-06-23 14:51] VITALS: BMI 37.4
[2020-06-29] VITALS (7 sets, daily range): BP systolic 105–128; BP diastolic 29–68; PULSE 68–80; RESP 10–16; TEMP 36.6–36.8; O2SAT 95–98; BMI 37.4
[2020-06-29] MEDS: LACTATED RINGERS 1,000 ML 42 ML IV (08:15)
[2020-06-29] MEDS: levoFLOXacin 500 MG/100 ML PIGGYBACK 100 MG IV (08:16)
--- NOTE | 2020-06-29 08:38 | PM.PREOP ---
Pre-operative Note COVID-19 COVID-19 status: Negative Result date/Date tested (Pos, Neg/Pending): 06/28/19 Interval Note History & Physical reviewed/Exam performed by Physician: Yes Changes to H&P: No
[2020-06-29] MEDS: metroNIDAZOLE 500 MG/100 ML PIGGYBACK 100 MG IV (08:46)
[2020-06-29] MEDS: DIBUCAINE 1% OINT 28 GM 1 APPLIC TOP (09:13)
[2020-06-29] MEDS: BUPIVACAINE 0.25% W/ EPI (PF) 10 ML VIAL 20 ML INJ (09:14)
[2020-06-29] MEDS: BUPIVACAINE LIPOSOME 266 MG/20 ML VIAL INJ (09:15)
--- NOTE | 2020-06-29 09:50 | P.OP_ITS ---
Operative Date/Time/Diagnoses Date of procedure: 06/29/20 Time of procedure: 08:45 Pre-op diagnosis: anal fistula Post-op diagnosis: other (intersphincteric anal fistula) Procedure & Clinicians Procedure: First stage of staged procedure Partial anal fistulectomy and non cutting Seton placement Same procedure as scheduled: Yes Indications: Persistent anal fistula Surgeon: Rena Rhodes Yes if Unassisted: Yes Anesthesia Type: General Operative Notes Findings: Intersphincteric anal fistula at 4:00 on the right anterior anal canal, involving the internal anal sphincter Specimen(s): none sent Estimated Blood Loss (mL): 5 Procedure in detail: The patient was brought into the OR. Sequential com pression devices were placed on both legs and turned on. Appropriate perioperative antibiotics were given. General anesthesia was induced and the patient was intubated. The patient was turned prone onto the OR table. All bony prominences were padded. The buttocks were taped apart. The perianal area was prepped and draped in sterile fashion with betadine prep. Surgical timeout was conducted. 0.25% Marcaine with epi was used to perform a four quadrant anal block using 5mL per quadrant for a total of 20mL. On external exam there was a small incision from her prior surgery on the right perineum between the anoderm and the vaginal opening. The area where the fissure seen in the posterior midline on her prior anorectal exam under anesthesia was seen to have healed. An Angiocath with an 18 gauge syringe was inserted into the prior surgical incision on the perineum. I injected the space with saline, and saw that it poured into the anal canal through a fistula opening just above the dentate line. A rounded probe was placed into the incisional opening and directed towards the anal canal. This was at about the 4 o'clock position if the posterior midline as 12:00 and the anterior midline at 6:00. Local anesthetic was injected in the skin and subcutaneous tissue. I then gently advanced it towards the fistula. Using a 15 blade I incised the skin overlying the probe. The probe was then directed through the fistula into the anal canal. The skin and subcutaneous fat overlying the fistula tract was opened using a 15 blade. Dissection was carried down to the sphincter muscles, and the patient was found to have a transsphincteric fistula which appeared to involve both internal and external sphincter muscles. Silk thread was tied to the end of the rounded probe, and pu lled through the fistula tract beneath the muscles. A small vessel loop was tied to the silk and then pulled through the fistula tract and tied to itself. About 5 mm of muscle was divided at the 4 o'clock position, about 2cm away from the anterior midline. There was too much muscle to divide all at once, and the patient will either need a staged fistulotomy, and advancement flap, or a LIFT procedure to resolve her fistula. At this point cutting any more the muscle, would increase her risk of anal leakage. The fistula tract was left open, with the vessel loop tied in place beneath the muscle. The involved skin and subcutaneous tissue was laid open, and not closed. Dibucaine was applied to the open wound, and 20mL of Exparel was used to inject the anoderm and anal canal circumferentially 2-3mL per cm. A large Gelfoam was then coated and rolled with Dibucaine and placed in the anal canal. A thick layer of Dibucaine was used to coat the anoderm. A stack of 4x4 gauze was then used to cover the anal opening and secured in place with medipore tape. The patient was transferred onto her hospital bed into supine position. She was then awakened from anesthesia and extubated. Needle, sponge, and instrument counts were correct x 2. The patient was transferred to the PACU in stable condition. Complications: none Post-operative Condition: stable Disposition: PACU
[2020-06-29] MEDS: OXYCODONE/ACETAMINOPHEN 5/325 TABLET 1 TAB PO ×2 (10:04→10:32)
--- NOTE | 2020-06-29 10:16 | SUR.PHASEI ---
pt medicated with percocet, dressing remained c/d/i, dr freed to bedside and spoke with pt, information reiterated with pt. to opd, stable.
--- NOTE | 2020-06-29 10:39 | SUR.PHASEI ---
Post op appointment made for pt per her request.
--- NOTE | 2020-06-29 10:56 | SUR.PHASEII ---
Discharge instructions provided and reviewed in detail with patient. Post-op appointment made for patient. Mesh panties given to patient. Prescriptions sent to patient's preferred pharmacy. Patient home in stable condition with friend.
== END 2020-06-29 10:56 | disposition home or self-care (01) ==
PROVIDERS: PCP Family Medicine; Referring Provider Surgery; Visit Provider Surgery
PROC: (CPT 45990; principal; 2020-06-29 08:45)
DX: K60.3 Anal fistula (principal); J45.20 Mild intermittent asthma, uncomplicated; Z72.0 Tobacco use; F43.10 Post-traumatic stress disorder, unspecified
CPT/HCPCS: 46275; 46020; 81025; C9290; J1100; J1956; J2250; J2405; J2704; J3010

== ENCOUNTER 2020-08-30 14:15 | Emergency (ER) | payer OTHER, MEDICAID, SELFPAY ==
[2020-08-30 14:17] VITALS: BP 111/55; PULSE 78; RESP 14; TEMP 36.8; O2SAT 98; BMI 37.8
--- NOTE | 2020-08-30 14:21 | DI.RAD.S_ITS ---
PROCEDURE: XR ANKLE RT MIN 3V INDICATIONS: rolled ankle TECHNIQUE: 3 views of the ankle were acquired. COMPARISON: None. FINDINGS: Bones: No fractures or dislocations. Mild widening of lateral ankle mortise suggestive of low-grade distal syndesmotic injury.. No suspicious bony lesions. Soft tissues: Lateral ankle soft tissue swelling is noted. No tibiotalar joint effusion. Achilles tendon appears normal. IMPRESSION: No acute ankle fracture or dislocation. Lateral ankle soft tissue swelling with slight widening of lateral ankle mortise suggestive of low-grade distal syndesmotic injury. Dictated by: Kartik Alberot M.D. on 08/30/2020 at 14:44 Approved by: Katrik Alberto M.D. on 08/30/2020 at 14:45
--- NOTE | 2020-08-30 14:37 | ED_ITS ---
HPI - Extremity Injury (Lower) <STONEY Carias - Last Filed: 08/30/20 20:19> General Chief Complaint: Extremity Injury, Lower Stated Complaint: rolled right ankle Time Seen by Provider: 08/30/20 14:19 Source: patient Mode of arrival: Ambulatory Limitations: no limitations History of Present Illness HPI Narrative: This is a 35 year female, smoker, who has past medical history right ankle injury 5-6 years ago, abdominal and breast surgeries presents to ED with chief complain of lateral ankle pain and swelling after she step off the curve this morning at 7:00 a.m.. Patient reports she had inverted right ankle and felt and heard a pop. Patient reports intact sensation, mobility to toes and was able to bear weight initially with pain. Patient reports now pain is radiating to posterior and anterior ankle to up and down the ankle. Related Data Home Medications Medication Instructions Recorded Confirmed bupropion HCl 300 mg 24 hr tablet, 300 mg PO QAM 08/28/19 06/29/20 extended release fluoxetine 40 mg capsule 80 mg PO DAILY cap 08/28/19 06/29/20 gabapentin 300 mg capsule 300 mg PO QID 08/28/19 06/29/20 prazosin 1 mg capsule 1 mg PO BEDTIME 08/28/19 06/29/20 olanzapine 5 mg tablet 5 mg PO DAILY 12/02/19 06/29/20 Previous Rx's Medication Instructions Recorded hydrocodone-acetaminophen 1 tab PO Q4-6H PRN #20 tab 06/29/20 levothyroxine 50 mcg tablet 50 mcg PO DAILY #90 tab 07/22/20 albuterol sulfate 90 mcg/actuation 2 puff INHALATION QID PRN #18 g 08/10/20 aerosol inhaler Allergies Allergy/AdvReac Type Severity Reaction Status Date / Time soy [SOY] Allergy Severe ANAPHYLAXIS Verified 08/30/20 14:21 lurasidone [From Latuda] Allergy Intermediate Confusion Verified 08/30/20 14:21 adhesive [ADHESIVE] Allergy Unknown PAINFUL TO Verified 08/30/20 14:21 SKIN, BURST BLOOD VESSELS aripiprazole [From ABILIFY] AdvReac Severe PSYCHOSIS Verified 08/30/20 14:21 hydromorphone [From DILAUDID] AdvReac Severe VISUAL Verified 08/30/20 14:21 AND AUDITORIAL HALLUCINATION zolpidem [From AMBIEN] AdvReac Severe RESTLESSNES Verified 08/30/20 14:21 S morphine [MORPHINE] AdvReac Intermediate HALLUCINATI Verified 08/30/20 14:21 ONS promethazine [From PHENERGAN] AdvReac Intermediate UNPLEASANT Verified 08/30/20 14:21 FEELING codeine [CODEINE] AdvReac Mild NAUSEA AND Verified 08/30/20 14:21 VOMITING Review of Systems <STONEY Carias - Last Filed: 08/30/20 20:19> Review of Systems Narrative: General: Denies fever, chills, fatigue, malaise, sweats. HEENT: Denies sinus pain, ear pain, sore throat, difficulty swallowing, dizziness. Respiratory: Denies dyspnea, cough, wheezing, hemoptysis, sputum. Cardiovascular: Denies chest pain, palpitations, orthopnea, edema. Gastrointestinal: Denies nausea, vomiting, abdominal pain, diarrhea, constipation, melena. Musculoskeletal: See HPI Skin: Denies rash, skin lesions, or other. Patient History <STONEY Carias - Last Filed: 08/30/20 20:19> Medical History Abdominal wall hernia Anal fistula Asthma Jackson's esophagus Chronic cough Depression Easy bruisability Elevated cholesterol GERD (gastroesophageal reflux disease) Headache Hypothyroidism Perianal abscess Suicidal ideation Well female exam without gynecological exam Surgical History History of surgery (12/04/19) History of surgery (12/30/19) Hx of abdominal surgery (2016) Status post breast lumpectomy Status post delivery Status post dilation and curettage Status post laparoscopy Status post surgery (04/10/17) Family History Brother Age: 38 Cerebral palsy, unspecified type Father Heart disease Essential hypertension High cholesterol Mental health problem Mother Age: 69 Diabetes mellitus Mental health problem Grandmother Alzheimer's disease Mental health problem Sister Mental health problem Sister Age: 45 Mental health problem Social History household members: children and none Smoking Status: Current every day smoker quit status: not considering quitting second hand exposure: No alcohol intake: former substance use type: marijuana (vape) Smoking Status: Current every day smoker tobacco type: cigarettes alcohol intake frequency: holidays/special occasions only Substance Use Type: marijuana Exam <Jong RavinderSTONEY - Last Filed: 08/30/20 20:19> Narrative Exam Narrative: General appearance: well developed, well nourished, in no acute distress. Head: normocephalic, atraumatic, no scalp lesions, non-tender. ENT: Hearing grossly intact. Airway patent. Neck/Thyroid: neck supple, full range of motion, no visible masses or meningeal signs. No JVD, non-tender without lymphadenopathy. Skin: no suspicious rashes, lesions over visible areas. Warm and dry and appropriate color for ethnicity. Heart: no clubbing, no cyanosis, no edema. S1 and S2 normal. RRR w/o murmurs, clicks, or bruits. Lungs: Breathing even and unlabored. No stridor. No accessory muscles used. Able to speak in full sentences. Chest: normal shape and expansion. Abdomen: non-obese, non-distended. Neurologic: alert and oriented. Cognitive exam, CR[employer]CH [employer]ER and PNS grossly intact on informal exam. Psych: good eye contact, normal affect. Initial Vital Signs Initial Vital Signs: Vital Signs Temperature 98.2 F 08/30/20 14:17 Pulse Rate 78 08/30/20 14:17 Respiratory Rate 14 08/30/20 14:17 Blood Pressure 111/55 L 08/30/20 14:17 Pulse Oximetry 98 08/30/20 14:17 Extrem Right lower extremity: knee Details: normal to inspection; no tenderness and no swelling, lower leg Details: normal to inspection; no tenderness and no localized swelling, ankle Details: abnormal to inspection, tenderness Location: of the lateral malleolus, swelling Details: laterally and normal ROM; no unusual warmth, no lacerations, no ecchymosis and no crepitus and foot Details: normal capillary refill, toes with normal ROM, vascular exam Details: dorsalis pedis pulse present and normal capillary refill, tendon exam Details: active flexion normal and active extension normal and motor-sensory exam Details: light-touch normal <Ryley Amaral DO - Last Filed: 08/31/20 07:31> Initial Vital Signs Initial Vital Signs: Vital Signs Temperature 98.2 F 08/30/20 14:17 Pulse Rate 78 08/30/20 14:17 Respiratory Rate 14 08/30/20 14:17 Blood Pressure 111/55 L 08/30/20 14:17 Pulse Oximetry 98 08/30/20 14:17 Procedures <STONEY Carias - Last Filed: 08/30/20 20:19> Orthopedic Splinting/Casting Injury #1: Side: right Lower Extremity Injury Location: ankle Lower Extremity Immobilizer: boot orthosis Post splinting neuro exam: intact Post splinting vascular exam: intact Placed by: Nursing Scores <STONEY Carias - Last Filed: 08/30/20 20:19> GCS Cindy coma scale eye opening: Spontaneous [place] coma scale verbal response: Orientated [place] coma scale motor response: Obey commands Cindy coma scale total score: 15 Course <STONEY Carias - Last Filed: 08/30/20 20:19> Orders Ordered: Discontinued Medications Acetaminophen (Acetaminophen 325 Mg Tablet) 650 mg PO NOW ONE Stop: 08/30/20 14:37 Last Admin: 08/30/20 14:52 Dose: 650 mg Documented by: INDIA Ibuprofen (Ibuprofen 400 Mg Tablet) 400 mg PO NOW ONE Stop: 08/30/20 14:37 Last Admin: 08/30/20 14:51 Dose: 400 mg Documented by: INDIA Consultations Consultation #1: Dr. Carreon consulted with physical findings and he reviewed the radiology imaging himself. He recommended walking bruise or without depends on the patient's pain tolerance. If pain persists then to follow up at the orthoclinic. He feels that the imaging test was over-read. Time: 15:46 Vital Signs Vital signs: Vital Signs - 8 hr 08/30/20 14:17 08/30/20 16:12 Temperature 98.2 F Pulse Rate 78 76 Respiratory Rate 14 18 Blood Pressure 111/55 L 110/65 Pulse Oximetry 98 97 <Ryley Amaral DO - Last Filed: 08/31/20 07:31> Orders Ordered: Discontinued Medications Acetaminophen (Acetaminophen 325 Mg Tablet) 650 mg PO NOW ONE Stop: 08/30/20 14:37 Last Admin: 08/30/20 14:52 Dose: 650 mg Documented by: INDIA Ibuprofen (Ibuprofen 400 Mg Tablet) 400 mg PO NOW ONE Stop: 08/30/20 14:37 Last Admin: 08/30/20 14:51 Dose: 400 mg Documented by: INDIA Vital Signs Vital signs: Vital Signs - 8 hr 08/30/20 14:17 08/30/20 16:12 Temperature 98.2 F Pulse Rate 78 76 Respiratory Rate 14 18 Blood Pressure 111/55 L 110/65 Pulse Oximetry 98 97 MDM - Extremity Injury (Lower) <Jong Moya-RikiSTONEY pineda - Last Filed: 08/30/20 20:19> Differential Diagnosis Differential diagnosis: Likely ankle sprain and strain and ankle fracture Imaging Data XR-Ankle RT: Radiologist's Impression: [address] [id number] ReportSigned Patient: Honey Gomez LMR#: [id number]: [id number]:[id number]/Sex: 35 / FDate of Service: 08/30/20Loc: EDAccession Number: [id number] Procedure: XR ankle RT min 3V Ordering Provider: Ryley Amaral D.O. PROCEDURE: XR ANKLE RT MIN 3V INDICATIONS: rolled ankle TECHNIQUE: 3 views of the ankle were acquired. COMPARISON: None. FINDINGS: Bones: No fractures or dislocations. Mild widening of lateral ankle mortise suggestive of low-grade distal syndesmotic injury.. No suspicious bony lesions. Soft tissues: Lateral ankle soft tissue swelling is noted. No tibiotalar joint effusion. Achilles tendon appears normal. IMPRESSION: No acute ankle fracture or dislocation. Lateral ankle soft tissue swelling with slight widening of lateral ankle mortise suggestive of low-grade distal syndesmotic injury. Dictated by: Kartik Alberto M.D. on 08/30/2020 at 14:44 Approved by: Kartik Alberto M.D. on 08/30/2020 at 14:45 [facility] Narrative Medical decision making narrative: This is a 35 year female who presents to ED after she stepped off the curb and inverted her right ankle with chief complain of right lateral ankle pain and swelling. Patient reports pain increases with weight-bearing but neurovascular exam is intact with intact mobility distally. Patient treated with cool pack, Tylenol and Motrin for discomfort. Ankle x-ray was obtained and indicates no fractures or dislocation. Lateral ankle soft tissue swelling with slight widening of lateral ankle mortise suggestive of low- grade distal syndesmotic injury. Dr. Carreon consulted over the phone and he reviewed the images. He recommended ortho boot if patient has pain to bear weight and as needed follow-up with orthopedic clinic if pain persists. I discussed these recommendations and return precautions with patient and she verbalized understanding and agrees with the treatment plan with early rehabilitation and RICE therapy. Discharge Plan Departure Patient Disposition: Home Clinical Impression: Ankle sprain Qualifiers: Encounter type: initial encounter Involved ligament of ankle: unspecified ligament Laterality: right Qualified Code(s): S93.401A - Sprain of unspecified ligament of right ankle, initial encounter Instructions: DI for Ankle Sprain Activity Restrictions/Additional Instructions: You have been diagnosed with [right lateral ankle sprain. X-ray test result does not show fractures or dislocation. I spoke with Dr. Carreon who is orthopedist on the phone with the findings and he reviewed the imaging. He recommended to use ortho boots if difficult time bearing weight due to pain or next several days. ]. What to do: *Take your medications as directed. Please use [id number] Tylenol and or Motrin as needed for discomfort. Tylenol 650-1000 mg up to 3 times a day as needed for pain. Ibuprofen 400-600 mg up to 3 times a day as needed for pain with food to decrease GI irritations. You can use cool compression on affected site several times a day for 15-20 minutes at a time, elevate affected leg, and rest for few days. *Follow up with your primary care provider in 2-3 days, call for an appointment. Let them know you were seen in the ED and that we asked you to be seen in follow up. If your pain persists greater than 7-10 days, please follow-up with orthopedic clinic. *Return to ED if you have any new, worsening, or concerning symptoms, such as [chest pain, breathing difficulty, unable to tolerate fluids, tingling/numbness/weakness to affected leg, fever or any acute concerns]. Prescriptions: No Action levothyroxine 50 mcg tablet 50 mcg PO DAILY Qty: 90 RF: 1 albuterol sulfate [ProAir HFA] 90 mcg/actuation HFA aerosol inhaler 2 puff inhalation QID PRN (Reason: shortness of breath or wheezing) Qty: 18 RF: 1 bupropion HCl [Wellbutrin XL] 300 mg tablet extended release 24 hr 300 mg PO QAM RF: 0 gabapentin 300 mg capsule 300 mg PO QID RF: 0 prazosin 1 mg capsule 1 mg PO BEDTIME RF: 0 fluoxetine 40 mg capsule 80 mg PO DAILY RF: 0 olanzapine [Zyprexa] 5 mg tablet 5 mg PO DAILY RF: 0 hydrocodone-acetaminophen 5-325 mg tablet 1 tab PO Q4-6H PRN (Reason: post operative pain) Qty: 20 RF: 0 Referrals: Thad Harden DO [Primary Care Provider] - <Ryley Amaral DO - Last Filed: 08/31/20 07:31> [facility] ED Attending Melida Attestation: I was immediately available in the department for consultation. This documentation has been reviewed and I agree with assessment and plan. Supervised by Ryley Amaral DO
[2020-08-30] MEDS: IBUPROFEN 400 MG TABLET PO (14:51)
[2020-08-30] MEDS: ACETAMINOPHEN 325 MG TABLET 650 MG PO (14:52)
[2020-08-30 16:12] VITALS: BP 110/65; PULSE 76; RESP 18; O2SAT 97
== END 2020-08-30 16:26 | disposition home or self-care (01) ==
PROVIDERS: Emergency Provider Nurse Practitioner Family; PCP Family Medicine
DX: S93.401A Sprain of unspecified ligament of right ankle, initial encounter (principal)
CPT/HCPCS: 29580; 73610; 99283

== ENCOUNTER → 2021-02-06 11:48 | Outpatient (CLI) | payer MEDICARE, MEDICAID, SELFPAY ==
[2021-02-06 13:45] LABS: TSH w/ Reflex to FT4 0.55 uIU/mL (0.47-4.68)
== END ==
PROVIDERS: PCP Family Medicine; Referring Provider Family Medicine; Visit Provider Family Medicine
DX: E03.9 Hypothyroidism, unspecified (principal)
CPT/HCPCS: 36415; 84443

== ENCOUNTER → 2021-09-04 10:51 | Outpatient (CLI) | payer MEDICARE, OTHER, MEDICAID, SELFPAY ==
--- NOTE | 2021-09-04 10:55 | DI.RAD.S_ITS ---
PROCEDURE: XR ANKLE LT MIN 3V INDICATIONS: ankle injury TECHNIQUE: 3 views of the ankle were acquired. COMPARISON: None. FINDINGS: Bones: No fracture or dislocation. The ankle mortise is congruent and maintained. Soft tissues: Soft tissue swelling about the ankle. Moderate tibiotalar effusion. IMPRESSION: Soft tissue swelling and tibiotalar effusion without evidence of fracture. Findings suggest ligamentous injury. Dictated by: Silvio Jackson M.D. on 09/04/2021 at 11:22 Approved by: Silvio Jackson M.D. on 09/04/2021 at 11:24
--- NOTE | 2021-09-04 10:55 | DI.RAD.S_ITS ---
PROCEDURE: XR FOOT LT MIN 3V INDICATIONS: ankle injury TECHNIQUE: 3 views of the foot were acquired. COMPARISON: None. FINDINGS: Bones: No fractures or dislocations. Mild hallux valgus is seen. Well-defined plantar calcaneal enthesophyte is also noted. No suspicious bony lesions. Soft tissues: No tibiotalar joint effusion. Achilles tendon appears normal. IMPRESSION: Mild hallux valgus. Mild 1st MTP joint osteoarthritis. Calcaneal enthesophyte. No fracture or dislocation. Dictated by: Kartik Alberto M.D. on 09/04/2021 at 11:10 Approved by: Kartik Albreto M.D. on 09/04/2021 at 11:36
== END ==
PROVIDERS: PCP Family Medicine; Referring Provider Student in an Organized Health Care Education/Training Program; Visit Provider Student in an Organized Health Care Education/Training Program
DX: S99.912A Unspecified injury of left ankle, initial encounter (principal); M25.572 Pain in left ankle and joints of left foot; M79.89 Other specified soft tissue disorders; M20.12 Hallux valgus (acquired), left foot; M19.072 Primary osteoarthritis, left ankle and foot; M77.32 Calcaneal spur, left foot; X58.XXXA Exposure to other specified factors, initial encounter
CPT/HCPCS: 73610; 73630

== ENCOUNTER → 2022-02-12 13:12 | Outpatient (CLI) | payer MEDICARE, OTHER, MEDICAID, SELFPAY ==
[2022-02-12 15:42] LABS: TSH w/ Reflex to FT4 1.24 uIU/mL (0.47-4.68)
== END ==
PROVIDERS: PCP Family Medicine; Referring Provider Family Medicine; Visit Provider Family Medicine
DX: E03.9 Hypothyroidism, unspecified (principal)
CPT/HCPCS: 36415; 84443

== ENCOUNTER → 2022-03-12 13:16 | Outpatient (CLI) | payer MEDICARE, OTHER, MEDICAID, SELFPAY ==
[2022-03-12 15:15] LABS: Add Manual Diff / Slide Review NO; Basophils Absolute Auto 100 /uL (0-100); Basophils Percent Auto 0.5 % (0-2); Eosinophils Absolute Auto 0 /uL (0-450); Eosinophils Percent Auto 0.1 % (2-4); Hematocrit 41.3 % (36-46); Hemoglobin 14.3 g/dL (12.0-16.0); Lymphocytes Absolute Auto 3500 /uL (1100-4500); Lymphocytes Percent Auto 24.6 % (25-40); Mean Corpuscular HGB Conc 34.6 % (30-36); Mean Corpuscular Hemoglobin 30.3 PG (26-34); Mean Corpuscular Volume 87.4 fL (80-100); Monocytes Absolute Auto 1200 /uL (0-900); Monocytes Percent Auto 8.6 % (3-14); Neutrophils Absolute Auto 9500 /uL (1500-7000); Neutrophils Percent Auto 66.2 % (50-75); Platelet Count 390 X10^3/uL (150-400); Red Blood Cell Count 4.73 X10^6/uL (4.0-5.2); Red Cell Distribution Width 13.9 % (11.6-14.8); White Blood Cell Count 14.3 X10^3/uL (4.5-11.0)
[2022-03-12 15:25] LABS: Alanine Aminotransferase 32 IU/L (<35); Albumin 4.4 g/dL (3.5-5.0); Albumin Globulin Ratio 1.2 (1.0-2.8); Alkaline Phosphatase 82 U/L (38-126); Aspartate Aminotransferase 28 IU/L (14-36); BUN Creatinine Ratio 14.5 (6-22); Bilirubin Total 0.4 mg/dL (0.2-1.3); Blood Urea Nitrogen 12 mg/dL (7-17); Calcium 9.3 mg/dL (8.4-10.2); Carbon Dioxide 24 mmol/L (22-32); Chloride 102 mmol/L (98-107); Estimated Glomerular Filt Rate > 60 mL/min (>60); Globulin 3.7 g/dL (1.7-4.1); Glucose 102 mg/dL (70-100); HEMOLYSIS < 15 (0-50); Potassium 3.9 mmol/L (3.4-5.1); Sodium 140 mmol/L (137-145); Total Protein 8.1 g/dL (6.3-8.2)
[2022-03-12 15:36] LABS: Free T4, Direct Thyroxine 1.15 ng/dL (0.78-2.19)
== END ==
PROVIDERS: PCP Family Medicine; Referring Provider Family Medicine; Visit Provider Family Medicine
DX: E03.9 Hypothyroidism, unspecified (principal); J45.20 Mild intermittent asthma, uncomplicated
CPT/HCPCS: 36415; 80053; 84439; 84443; 85025

== ENCOUNTER → 2022-03-16 10:33 | Outpatient (CLI) | payer MEDICARE, OTHER, MEDICAID, SELFPAY ==
[2022-03-16 13:45] LABS: Appearance Urine UA CLEAR; Bilirubin Urine UA NEGATIVE (NEGATIVE); Color Urine UA YELLOW; Glucose Urine UA NEGATIVE (Negative); Ketones Urine UA NEGATIVE (NEGATIVE); Leukocyte Esterase Urine UA NEGATIVE (NEGATIVE); Nitrite Urine UA NEGATIVE (Negative); Occult Blood Urine UA 1+ (Negative); Protein Urine UA NEGATIVE (Negative); Specific Gravity Urine UA <=1.005 (1.000-1.035); Urobilinogen Urine UA 0.2 E.U./dL (0.2)
[2022-03-16 14:18] LABS: RBC Urine 1-5/HPF (0-5/HPF); Squamous Epithelial Cell Urine 0-1 /HPF (0-5/HPF); WBC Urine 0-1/HPF (0-5/HPF)
[2022-03-16 14:19] LABS: Bacteria Urine Occasional (0-1); Culture Indicated Urine Cult Not Indicated
== END ==
PROVIDERS: PCP Family Medicine; Referring Provider Family Medicine; Visit Provider Family Medicine
DX: N39.0 Urinary tract infection, site not specified (principal)
CPT/HCPCS: 81001

== ENCOUNTER 2022-03-20 17:06 | Emergency (ER) | payer MEDICARE, OTHER, MEDICAID, SELFPAY ==
[2022-03-20 17:26] VITALS: BP 125/85; PULSE 106; RESP 22; TEMP 37.2; O2SAT 97
--- NOTE | 2022-03-20 17:36 | DI.RAD.S_ITS ---
PROCEDURE: XR CHEST 1V INDICATIONS: suspected sepsis TECHNIQUE: One view of the chest was acquired. COMPARISON: [facility], CR, XR CHEST 2V, 09/07/2019, 10:34. FINDINGS: Surgical changes and devices: None. Lungs and pleura: Lungs are clear. No pleural effusions or pneumothorax. Mediastinum: Mediastinal contours appear normal. Heart size is normal. Bones and chest wall: No suspicious bony lesions. Overlying soft tissues appear unremarkable. IMPRESSION: No acute cardiopulmonary abnormality. Dictated by: Braulio Martinez M.D. on 03/20/2022 at 18:30 Approved by: Braulio Martinez M.D. on 03/20/2022 at 18:31
[2022-03-20 18:03] LABS: Add Manual Diff / Slide Review NO; Basophils Absolute Auto 0 /uL (0-100); Basophils Percent Auto 0.4 % (0-2); Eosinophils Absolute Auto 100 /uL (0-450); Eosinophils Percent Auto 1.3 % (2-4); Hematocrit 39.8 % (36-46); Hemoglobin 13.9 g/dL (12.0-16.0); Lymphocytes Absolute Auto 600 /uL (1100-4500); Mean Corpuscular HGB Conc 34.8 % (30-36); Mean Corpuscular Hemoglobin 30.6 PG (26-34); Mean Corpuscular Volume 87.8 fL (80-100); Monocytes Absolute Auto 1300 /uL (0-900); Monocytes Percent Auto 15.6 % (3-14); Neutrophils Absolute Auto 6200 /uL (1500-7000); Neutrophils Percent Auto 75.7 % (50-75); Platelet Count 253 X10^3/uL (150-400); Red Blood Cell Count 4.54 X10^6/uL (4.0-5.2); Red Cell Distribution Width 13.9 % (11.6-14.8); White Blood Cell Count 8.2 X10^3/uL (4.5-11.0)
[2022-03-20 18:27] LABS: Alanine Aminotransferase 40 IU/L (<35); Albumin 4.6 g/dL (3.5-5.0); Albumin Globulin Ratio 1.3 (1.0-2.8); Alkaline Phosphatase 90 U/L (38-126); Aspartate Aminotransferase 40 IU/L (14-36); BUN Creatinine Ratio 10.4 (6-22); Bilirubin Total 0.4 mg/dL (0.2-1.3); Blood Urea Nitrogen 10 mg/dL (7-17); Carbon Dioxide 25 mmol/L (22-32); Chloride 99 mmol/L (98-107); Estimated Glomerular Filt Rate > 60 mL/min (>60); Globulin 3.5 g/dL (1.7-4.1); Glucose 87 mg/dL (70-100); HEMOLYSIS < 15 (0-50); Lipase 86 U/L (23-300); Potassium 3.6 mmol/L (3.4-5.1); Sodium 134 mmol/L (137-145); Total Protein 8.1 g/dL (6.3-8.2)
[2022-03-20 18:28] LABS: D Dimer 760 ng/ml (<500); Lactate (Lactic Acid) 0.6 mmol/L (0.7-2.1)
[2022-03-20 18:39] LABS: Troponin I < 0.012 ng/mL (0.01-0.034)
[2022-03-20 18:43] LABS: Procalcitonin 0.09 ng/mL (<0.5)
--- NOTE | 2022-03-20 19:00 | ED_ITS ---
HPI - Arrhythmia/Palpitations General Chief Complaint: Arrhythmia/Palpitations Stated Complaint: palpitations all day Time Seen by Provider: 03/20/22 18:10 Source: patient Mode of arrival: Ambulatory History of Present Illness HPI narrative: 36-year-old female with history of frequent UTIs, asthma and recent Bartholin cyst drainage about 1 month ago presents for palpitations and a painful lump behind her ear. She states that she had routine labs that noted a slight bump in her white blood cell count and based on her complaint of frequent urination she was started on Bactrim on Saturday. She was called today and told that she did not have evidence of urine infection on the urine that she had provided. She mentioned to them at that time that she had been having right ear pain in the absence of drainage or change in her ability to hear and also a painful lump behind that ear. She denies any runny nose, sore throat or cough. She is had palpitations but denies any chest pain or significant shortness of breath. She denies fever or chills. She is had no nausea, vomiting or diarrhea. She denies any pelvic pain or drainage and states that the procedure to address her Bartholin's cyst seems to have worked. She denies ongoing dysuria, frequency or urgency Related Data Home Medications Medication Instructions Recorded Confirmed fluoxetine 40 mg capsule 80 mg PO DAILY 08/28/19 03/16/22 gabapentin 300 mg capsule 300 mg PO QID 08/28/19 03/16/22 prazosin 1 mg capsule 1 mg PO BEDTIME 08/28/19 03/16/22 olanzapine 5 mg tablet (Zyprexa) 5 mg PO DAILY 12/02/19 03/16/22 amitriptyline 75 mg tablet 75 mg PO BEDTIME 02/16/22 03/16/22 bupropion HCl 150 mg 24 hr tablet, 300 mg PO QAM 02/16/22 03/16/22 extended release buspirone 10 mg tablet 10 mg PO BID 02/16/22 03/16/22 Previous Rx's Medication Instructions Recorded albuterol sulfate 90 mcg/actuation See Rx Instructions .Route 02/16/22 aerosol inhaler (ProAir HFA) .COMPLEX #8.5 grams levothyroxine 75 mcg tablet 75 mcg PO DAILY #90 tabs 02/16/22 sulfamethoxazole 800 1 tab PO BID #14 tabs 03/16/22 mg-trimethoprim 160 mg tablet (Bactrim DS) ofloxacin 0.3 % ear drops 5 drp EAR-RIGHT DAILY 7 days #5 mL 03/20/22 Allergies Allergy/AdvReac Type Severity Reaction Status Date / Time soy [SOY] Allergy Severe ANAPHYLAXIS Verified 03/16/22 10:06 lurasidone [From Latuda] Allergy Intermediate Confusion Verified 03/16/22 10:06 adhesive [ADHESIVE] Allergy Unknown PAINFUL TO Verified 03/16/22 10:06 SKIN, BURST BLOOD VESSELS aripiprazole [From ABILIFY] AdvReac Severe PSYCHOSIS Verified 03/16/22 10:06 hydromorphone [From DILAUDID] AdvReac Severe VISUAL Verified 03/16/22 10:06 AND AUDITORIAL HALLUCINATION zolpidem [From AMBIEN] AdvReac Severe RESTLESSNES Verified 03/16/22 10:06 S morphine [MORPHINE] AdvReac Intermediate HALLUCINATI Verified 03/16/22 10:06 ONS promethazine [From PHENERGAN] AdvReac Intermediate UNPLEASANT Verified 03/16/22 10:06 FEELING codeine [CODEINE] AdvReac Mild NAUSEA AND Verified 03/16/22 10:06 VOMITING Review of Systems Review of Systems Narrative: GENERAL: See HPI HEENT: see HPI RESPIRATORY: see HPI CARDIOVASCULAR: see HPI GASTROINTESTINAL: Denies nausea, vomiting, abdominal pain, diarrhea, constip ation, melena. : Denies dysuria, frequency, incontinence, hematuria, urinary retention. MUSCULOSKELETAL: denies weakness, joint pain, or bony pain SKIN: Denies rash, skin lesions, or other NEUROLOGIC: Denies weakness, headache, numbness, change in speech, confusion, seizures, incoordination. PSYCHIATRIC: No concerning psychosocial issues. 12 point review of systems is negative except for those stated above Patient History Medical History Abdominal wall hernia Anal fistula Asthma Jackson's esophagus Chronic cough Depression Easy bruisability Elevated cholesterol GERD (gastroesophageal reflux disease) Headache Hypothyroidism Perianal abscess Suicidal ideation UTI (urinary tract infection) Well female exam without gynecological exam Surgical History History of surgery (12/04/19) History of surgery (12/30/19) Hx of abdominal surgery (2017) Status post breast lumpectomy Status post delivery Status post dilation and curettage Status post laparoscopy Status post surgery (04/10/17) Family History Brother Age: 39 Cerebral palsy, unspecified type Father Heart disease Essential hypertension High cholesterol Mental health problem Mother Age: 70 Diabetes mellitus Mental health problem Grandmother Alzheimer's disease Mental health problem Sister Mental health problem Sister Age: 46 Mental health problem Social History household members: children and none Smoking Status: Current every day smoker quit status: not considering quitting second hand exposure: No alcohol intake: former substance use type: marijuana (vape) Smoking Status: Current every day smoker tobacco type: cigarettes alcohol intake frequency: holidays/special occasions only Substance Use Type: marijuana Exam Narrative Exam Narrative: GENERAL: 36[] year old patient appears stated age. Well-developed patient, in mild distress. Anxious HEAD: Atraumatic. Normocephalic. EYES: Pupils equal round and reactive. Extraocular motions intact. No scleral icterus. No injection or drainage. ENT: Nose without bleeding, purulent drainage. Throat without erythema, tonsillar hypertrophy or exudate. Airway patent. R EAC with erythema in the abse nce of edema, exudate or drainage. Tympanic membranes bilaterally are clear, flat with normal landmarks. She does have a single tender, palpable lymph node in her posterior auricular region without overlying erythema, induration or fluctuance. NECK: Trachea midline. Non tender CARDIOVASCULAR: Regular rate and rhythm without murmurs, gallops, or rubs. RESPIRATORY: Clear to auscultation. Breath sounds equal bilaterally. No wheezes, rales, or rhonchi. GASTROINTESTINAL: Abdomen soft, non-tender, nondistended. EXTREMITIES: No edema or joint tenderness. BACK: Nontender without deformity or crepitance. No flank tenderness. NEURO: AOx3. SKIN: No rash or erythema of visible areas Initial Vital Signs Initial Vital Signs: Vital Signs Temperature 99.0 F 03/20/22 17:26 Pulse Rate 106 H 03/20/22 17:26 Respiratory Rate 22 03/20/22 17:26 Blood Pressure 125/85 03/20/22 17:26 Pulse Oximetry 97 03/20/22 17:26 Oxygen Delivery Method 03/20/22 17:26 Course Orders Ordered: Discontinued Medications Acetaminophen (Acetaminophen 325 Mg Tablet) 975 mg PO NOW ONE Stop: 03/20/22 20:09 Last Admin: 03/20/22 20:13 Dose: 975 mg Documented By: CAR Sodium Chloride (Normal Saline 0.9%) 1,000 mls @ 1,000 mls/hr IV BOLUS ONE Stop: 03/20/22 18:35 Last Infusion: 03/20/22 21:26 Dose: 0 mls/hr Documented By: Admin: 03/20/22 19:24 Dose: 1,000 mls/hr Documented By: CAR Sodium Chloride (Normal Saline 0.9%) 1,000 mls @ 1,000 mls/hr IV BOLUS ONE Stop: 03/20/22 20:12 Last Admin: 03/20/22 21:26 Dose: Not Given Documented By: TOMY Ofloxacin (Ofloxacin 0.3% Ophth 5 Ml) 5 drops EAR-RIGHT NOW ONE Stop: 03/20/22 21:16 Last Admin: 03/20/22 21:22 Dose: 5 drop Documented By: TATUM Vital Signs Vital signs: Vital Signs - 8 hr 03/20/22 17:26 Temperature 99.0 F Pulse Rate 106 H Respiratory Rate 22 Blood Pressure 125/85 Pulse Oximetry 97 Oxygen Delivery Method Room Air MDM - Arrhythmia/Palpitations Lab Data Result diagrams: 03/20/22 17:45 03/20/22 17:45 Labs: Lab Results 03/20/22 03/20/22 03/20/22 Range/Units 17:45 17:45 17:45 WBC 8.2 (4.5-11.0) X10^3/uL RBC 4.54 (4.0-5.2) X10^6/uL Hgb 13.9 (12.0-16.0) g/dL Hct 39.8 (36-46) % MCV 87.8 (80-100) fL MCH 30.6 (26-34) PG MCHC 34.8 (30-36) % RDW 13.9 (11.6-14.8) % Plt Count 253 (150-400) X10^3/uL Neut % (Auto) 75.7 H (50-75) % Lymph % (Auto) 7.0 L (25-40) % [place] % (Auto) 15.6 H (3-14) % Eos % (Auto) 1.3 L (2-4) % Baso % (Auto) 0.4 (0-2) % Neut # (Auto) 6200 (8541-5946) /uL Lymph # (Auto) 600 L (2954-1754) /uL [place] # (Auto) 1300 H (0-900) /uL Eos # (Auto) 100 (0-450) /uL Baso # (Auto) 0 (0-100) /uL D-Dimer (<500) ng/ml Sodium 134 L (137-145) mmol/L Potassium 3.6 (3.4-5.1) mmol/L Chloride 99 (98-107) mmol/L Carbon Dioxide 25 (22-32) mmol/L BUN 10 (7-17) mg/dL Creatinine 0.96 (0.52-1.04) mg/dL Estimated GFR > 60 (>60) mL/min BUN/Creatinine Ratio 10.4 (6-22) Glucose 87 (70-100) mg/dL Lactate 0.6 L (0.7-2.1) mmol/L Calcium 9.0 (8.4-10.2) mg/dL Total Bilirubin 0.4 (0.2-1.3) mg/dL AST 40 H (14-36) IU/L ALT 40 H (<35) IU/L Alkaline Phosphatase 90 (38-126) U/L Troponin I < 0.012 (0.01-0.034) ng/mL Total Protein 8.1 (6.3-8.2) g/dL Albumin 4.6 (3.5-5.0) g/dL Globulin 3.5 (1.7-4.1) g/dL Albumin/Globulin Ratio 1.3 (1.0-2.8) Lipase 86 (23-300) U/L Procalcitonin 0.09 (<0.5) ng/mL TSH (0.47-4.68) uIU/mL 03/20/22 03/20/22 03/20/22 Range/Units 17:45 17:45 20:07 WBC (4.5-11.0) X10^3/uL RBC (4.0-5.2) X10^6/uL Hgb (12.0-16.0) g/dL Hct (36-46) % MCV (80-100) fL MCH (26-34) PG MCHC (30-36) % RDW (11.6-14.8) % Plt Count (150-400) X10^3/uL Neut % (Auto) (50-75) % Lymph % (Auto) (25-40) % [place] % (Auto) (3-14) % Eos % (Auto) (2-4) % Baso % (Auto) (0-2) % Neut # (Auto) (0981-8295) /uL Lymph # (Auto) (1368-0450) /uL [place] # (Auto) (0-900) /uL Eos # (Auto) (0-450) /uL Baso # (Auto) (0-100) /uL D-Dimer 760 H (<500) ng/ml Sodium (137-145) mmol/L Potassium (3.4-5.1) mmol/L Chloride (98-107) mmol/L Carbon Dioxide (22-32) mmol/L BUN (7-17) mg/dL Creatinine (0.52-1.04) mg/dL Estimated GFR (>60) mL/min BUN/Creatinine Ratio (6-22) Glucose (70-100) mg/dL Lactate (0.7-2.1) mmol/L Calcium (8.4-10.2) mg/dL Total Bilirubin (0.2-1.3) mg/dL AST (14-36) IU/L ALT (<35) IU/L Alkaline Phosphatase (38-126) U/L Troponin I < 0.012 (0.01-0.034) ng/mL Total Protein (6.3-8.2) g/dL Albumin (3.5-5.0) g/dL Globulin (1.7-4.1) g/dL Albumin/Globulin Ratio (1.0-2.8) Lipase (23-300) U/L Procalcitonin (<0.5) ng/mL TSH 0.87 (0.47-4.68) uIU/mL Point of Care Testing Test Results Negative Urine Dip Bedside Urine Glucose Negative Bedside Urine Bilirubin - Negative Bedside Urine Ketone - Negative Urine Specific [place] 1.000 Bedside Urine Occult Blood +++ Bedside Urine pH 6.0 Bedside Urine Protein - Negative Bedside Urine Urobilinogen - Negative Bedside Urine Nitrite - Negative Bedside Urine Leukocytes - Negative Esterase Imaging Data CT scan - chest: Radiologist's Impresson: Close Chest CTA (Signed) Jimmie Moncada - 03/20/22 Chest X-Ray (Signed) JuanBraulio - 03/20/22 Foot X-Ray (Signed) Kartik Alberto - 09/04/21 Ankle X-Ray (Signed) Silvio Jackson - 09/04/21 Ankle X-Ray (Signed) Kartik Alberto - 08/30/20 Pelvis MRI (Signed) Juan Hughes - 05/18/20 Chest X-Ray (Signed) Juan Hughes - 09/07/19 EKG Rpt. 09/02/19 Ultrasound (Signed) Juan Hughes - 03/31/18 Ultrasound (Signed) Dot Samuels - 03/28/18 Launch?[place] [address] CT Scan Report Signed Patient: Honey Gomez MR#: [id number] : 1985 Acct:[id number] Age/Sex: 36 / F Date of Service: 03/20/22 Loc: Accession Number: [id number] ?? Procedure: CT angio chest PE protocol Ordering Provider: Ryley Amaral D.O. PROCEDURE:? CT ANGIO CHEST PE PROTOCOL ? INDICATIONS:? palpitations, tachycardia, recent surgery ? TECHNIQUE:? After the administration of intravenous contrast, 2 mm thick sections acquired from the pulmonary apices to the posterior costophrenic angles.? 3-dimensional maximum intensity projection (MIP) coronal and sagittal reformats were then acquired through the thorax.? For radiation dose reduction, the following was used:? automated exposure control, adjustment of mA and/or kV according to patient size.? ? COMPARISON:? [facility], CT, PE STUDY (CTA CHEST), 10/14/2017, 15:56. ? FINDINGS:? Image quality:? Excellent.? ? Pulmonary arteries:? There is suboptimal opacification of pulmonary arteries limiting evaluation of segmental and subsegmental branches.? Pulmonary arteries are normal in size, and demonstrate no intraluminal filling defects to suggest central pulmonary embolism within the main, lobar, or proximal segmental pulmonary arteries.? ? Lower Neck: No lymphadenopathy by size criteria. Thyroid:? Visualized thyroid demonstrates no discrete nodules. Axillae: No lymphadenopathy by size criteria. Chest Wall:? Unremarkable.? Bones: Visualized osseous structures demonstrate no suspicious lesions. ? Lungs and Airways:? No acute consolidation.? In the right middle lobe, there is a peripheral 0.4 cm pulmonary nodule on series 5, image 186 which appears similar to the prior study given differences in technique.? In the right lower lobe, there is a 0.4 cm nodule on series 5, image 212 which also appears similar to minimally increased in size compared to the prior study on which it measured approximately 0.3 cm.? The t rachea and central airways are patent. Pleura: No pneumothorax or pleural effusions.? ? Heart: Heart size is normal.? No pericardial effusion. Thoracic Vessels: The thoracic aorta is normal in size.? Mediastinum and Melia: No lymphadenopathy by size criteria.? There is soft tissue within the anterior mediastinum likely representing residual thymus. Esophagus: No wall thickening.? There is a small hiatal hernia. ? Abdomen:? Visualized upper abdominal solid organs appear normal in the early arterial phase of enhancement.? ? IMPRESSION:? ? 1. No evidence of central pulmonary embolism, with evaluation segmental and subsegmental branches limited by suboptimal contrast opacification. ? 2. No acute airspace consolidation. ? ? Dictated by: Jimmie Moncada M.D. on 03/20/2022 at 20:36 ? ? Approved by: Jimmie Moncada M.D. on 03/20/2022 at 20:43 ? ECG Data Interpretation: [address] [address] XRay Report Signed Patient: Honey Gomez MR#: [id number] : 1985 Acct:[id number] Age/Sex: 36 / F Date of Service: 03/20/22 Loc: ED Accession Number: [id number] ?? Procedure: XR chest 1V Ordering Provider: Yasmin Benavidez D.O. PROCEDURE:? XR CHEST 1V ? INDICATIONS:? suspected sepsis ? TECHNIQUE:? One view of the chest was acquired.? ? COMPARISON:? [facility], CR, XR CHEST 2V, 09/07/2019, 10:34. ? FINDINGS:? ? Surgical changes and devices:? None.? ? Lungs and pleura:? Lungs are clear.? No pleural effusions or pneumothorax.? ? Mediastinum:? Mediastinal contours appear normal.? Heart size is normal.? ? Bones and chest wall:? No suspicious bony lesions.? Overlying soft tissues appear unremarkable.? ? IMPRESSION:? No acute cardiopulmonary abnormality. ? ? Dictated by: Braulio Martinez M.D. on 03/20/2022 at 18:30 ? ? Approved by: Braulio Martinez M.D. on 03/20/2022 at 18:31 ? Discharge Plan Departure Patient Disposition: Home Clinical Impression: Heart palpitations, Incidental pulmonary nodule, Otitis externa Instructions: DI for Otitis Externa, DI for Palpitations Activity Restrictions/Additional Instructions: *You have been diagnosed with [right otitis externa and palpitations] *What to do: *Please continue to take your regular medications as directed. [ ]Ofloxacin: 5 drops in right ear daily x7 days *Please follow up with your primary care provider in 2-3 days, call for an appointment. Let them know you were seen in the Emergency Department and that we ask that you be seen in follow up. We will electronically transmit a record of today's note if your PCP is in our system *If you do not have a primary care provider please contact the [facility] Resource line at [phone]. They will ask some questions about your medical history and help get you set up with a doctor in the community. *Return to Emergency Department if you should have any new, worsening or concerning symptoms, such as [fever greater than 101 F, shaking chills, worsening pain, persistent vomiting or other bothersome symptoms] Prescriptions: New ofloxacin 0.3 % drops 5 drp EAR-RIGHT DAILY 7 Days Qty: 5 0RF No Action gabapentin 300 mg capsule 300 mg PO QID prazosin 1 mg capsule 1 mg PO BEDTIME bupropion HCl 150 mg tablet extended release 24 hr 300 mg PO QAM amitriptyline 75 mg tablet 75 mg PO BEDTIME buspirone 10 mg tablet 10 mg PO BID albuterol sulfate [ProAir HFA] 90 mcg/actuation HFA aerosol inhaler See Rx Instructions .ROUTE .COMPLEX Qty: 8.5 3RF Dose Instruction: Inhale 2 puffs by mouth every 6 hours as needed for wheezing Rx Instructions: Inhale 2 puffs by mouth every 6 hours as needed for wheezing levothyroxine 75 mcg tablet 75 mcg PO DAILY Qty: 90 1RF sulfamethoxazole-trimethoprim [Bactrim DS] 800-160 mg tablet 1 tab PO BID Qty: 14 0RF fluoxetine 40 mg capsule 80 mg PO DAILY olanzapine [Zyprexa] 5 mg tablet 5 mg PO DAILY Rx Instructions: 5mg in am, 10mg pm Referrals: Thad Harden DO [Primary Care Provider] - Visit Report Forms: Patient Portal/API
--- NOTE | 2022-03-20 19:13 | DI.CT.S_ITS ---
PROCEDURE: CT ANGIO CHEST PE PROTOCOL INDICATIONS: palpitations, tachycardia, recent surgery TECHNIQUE: After the administration of intravenous contrast, 2 mm thick sections acquired from the pulmonary apices to the posterior costophrenic angles. 3-dimensional maximum intensity projection (MIP) coronal and sagittal reformats were then acquired through the thorax. For radiation dose reduction, the following was used: automated exposure control, adjustment of mA and/or kV according to patient size. COMPARISON: [facility], CT, PE STUDY (CTA CHEST), 10/14/2017, 15:56. FINDINGS: Image quality: Excellent. Pulmonary arteries: There is suboptimal opacification of pulmonary arteries limiting evaluation of segmental and subsegmental branches. Pulmonary arteries are normal in size, and demonstrate no intraluminal filling defects to suggest central pulmonary embolism within the main, lobar, or proximal segmental pulmonary arteries. Lower Neck: No lymphadenopathy by size criteria. Thyroid: Visualized thyroid demonstrates no discrete nodules. Axillae: No lymphadenopathy by size criteria. Chest Wall: Unremarkable. Bones: Visualized osseous structures demonstrate no suspicious lesions. Lungs and Airways: No acute consolidation. In the right middle lobe, there is a peripheral 0.4 cm pulmonary nodule on series 5, image 186 which appears similar to the prior study given differences in technique. In the right lower lobe, there is a 0.4 cm nodule on series 5, image 212 which also appears similar to minimally increased in size compared to the prior study on which it measured approximately 0.3 cm. The trachea and central airways are patent. Pleura: No pneumothorax or pleural effusions. Heart: Heart size is normal. No pericardial effusion. Thoracic Vessels: The thoracic aorta is normal in size. Mediastinum and Melia: No lymphadenopathy by size criteria. There is soft tissue within the anterior mediastinum likely representing residual thymus. Esophagus: No wall thickening. There is a small hiatal hernia. Abdomen: Visualized upper abdominal solid organs appear normal in the early arterial phase of enhancement. IMPRESSION: 1. No evidence of central pulmonary embolism, with evaluation segmental and subsegmental branches limited by suboptimal contrast opacification. 2. No acute airspace consolidation. Dictated by: Jimmie Moncada M.D. on 03/20/2022 at 20:36 Approved by: Jimmie Moncada M.D. on 03/20/2022 at 20:43
[2022-03-20 19:15] LABS: TSH w/ Reflex to FT4 0.87 uIU/mL (0.47-4.68)
[2022-03-20] MEDS: SODIUM CHLORIDE 0.9% 1,000 ML 1000 ML IV (19:24)
[2022-03-20 20:04] VITALS: BP 126/62; PULSE 92; RESP 20; O2SAT 98
[2022-03-20] MEDS: ACETAMINOPHEN 325 MG TABLET 975 MG PO (20:13)
[2022-03-20 21:00] LABS: Troponin I < 0.012 ng/mL (0.01-0.034)
[2022-03-20 21:09] VITALS: BP 126/65; PULSE 88; RESP 21; O2SAT 97
[2022-03-20] MEDS: OFLOXACIN 0.3% OPHTH 5 ML 5 DROPS EAR-RIGHT (21:22)
== END 2022-03-20 21:52 | disposition home or self-care (01) ==
PROVIDERS: Emergency Medicine; Emergency Provider Emergency Medicine; PCP Family Medicine
DX: R00.2 Palpitations (principal); H60.91 Unspecified otitis externa, right ear; R91.1 Solitary pulmonary nodule
CPT/HCPCS: 71045; 71275; 80053; 81003; 81025; 83605; 83690; 84145; 84443; 84484; 85025; 85379; 87040; 93005; 99284; Q9967

== ENCOUNTER → 2022-03-26 06:48 | Outpatient (CLI) | payer MEDICARE, OTHER, MEDICAID, SELFPAY ==
--- NOTE | 2022-03-26 06:49 | DI.ECHO.S_ITS ---
[place] [facility]---------+ [facility] +---------+ : : [address] : : : : [id number] : : : : Phone: [phone] Echocardiogram Report + + :Name: HEENA HUNT Study Date: 03/26/2022 Height: 61 in : :[facility] ReadingLocation: Weight: 200 lb : : Gender: Female BSA: 1.9 m2 : :: 1985 Age: 36 yrs BP: 134/96 mmHg: :Reason For Study: Palpitations : :Ordering Physician: : :DANE HELTON Performed By: Jayme Muñiz : :Referring: DANE HELTON : + + Interpretation Summary The patient was in normal sinus rhythm during the exam. The left ventricle is normal in size and wall thickness. Left ventricular systolic function is normal. The ejection fraction is estimated to be 55-60%. Diastolic parameters suggest probable normal left ventricular diastolic function and normal filling pressures. No significant valvular disease No prior study for comparison. Procedure: A two-dimensional transthoracic echocardiogram with color flow and Doppler was performed in limited views only. The study quality was technically adequate. There is no prior echocardiogram noted for this patient. The patient was in normal sinus rhythm during the exam. Left Ventricle: The left ventricle is normal in size and wall thickness. Left ventricular systolic function is normal. The ejection fraction is estimated to be 55-60%. There are no focal wall motion abnormalities. Diastolic parameters suggest probable normal left ventricular diastolic function and normal filling pressures. Right Ventricle: The right ventricle is normal in size and function. Atria: Both atria are normal in size. Mitral Valve: The mitral valve is normal. There is no mitral regurgitation noted. Aortic Valve: The aortic valve is trileaflet. The aortic valve opens well. No aortic regurgitation is present. Tricuspid Valve: The tricuspid valve is normal in structure and function. No tricuspid regurgitation. Pulmonary artery pressures cannot be estimated because of the lack of a measurable TR jet velocity. Pulmonic Valve: The pulmonic valve is not well seen, but is grossly normal. There is no pulmonic valvular regurgitation. Great Vessels: The aortic root is normal size. The dimensions of the ascending aorta are normal. The IVC is of normal diameter and collapses greater than 50% with a sniff. This suggests a low right atrial pressure of 3 mm Hg. Pericardium/ Pleura There is no pericardial effusion. There is no pleural effusion. MMode/2D Measurements & Calculations LVIDd: 4.7 cm LA dimension: 2.7 cm LVIDs: 3.2 cm LA A2 area: 12.5 cm2 FS: 32.7 % LA A4 area: 17.0 cm2 IVSd: 0.72 cm LA length (vol): 4.7 cm LVPWd: 0.75 cm LA vol: 38.4 ml LV fletcher. diameter/BSA (cm/m^2): 2.5 LA vol index: 20.3 ml/m2 LV sys. diameter/BSA (cm/m^2): 1.7 RA area: 12.6 cm2 RVD1 (basal): 3.0 cm Doppler Measurements & Calculations MV E max yonis: 71.1 cm/sec MV A max yonis: 60.0 cm/sec MV E/A: 1.2 Med Peak E' Yonis: 10.6 cm/sec E/E' med: 6.7 Lat Peak E' Yonis: 14.3 cm/sec E/E' lat: 5.0 E/e' average: 5.8 MV dec time: 0.17 sec Reading Physician:KELLY
== END ==
PROVIDERS: PCP Family Medicine; Referring Provider Family Medicine; Visit Provider Family Medicine
DX: R00.2 Palpitations (principal)
CPT/HCPCS: 93307

== ENCOUNTER → 2022-03-27 12:14 | Outpatient (CLI) | payer MEDICARE, OTHER, MEDICAID, SELFPAY ==
--- NOTE | 2022-03-27 12:16 | DI.CT.S_ITS ---
PROCEDURE: CT CHEST WO CON INDICATIONS: F/U imaging ER visit 03/20/22 TECHNIQUE: Noncontrast 2.0-2.5 mm thick sections acquired from the pulmonary apices to the posterior costophrenic angles. 7 mm thick axial MIP and 5 mm coronal and sagittal reformats were then acquired. A low radiation dose technique was utilized. COMPARISON: [facility], CT, CT ANGIO CHEST PE PROTOCOL, 03/20/2022, 19:20. FINDINGS: Image quality: Diagnostic, given the low radiation dose technique. Lungs and pleura: 4 mm nodule in lateral right middle lobe is again seen unchanged from prior study series 3, image 160. 4 mm solid nodule is also seen in lateral right lower lobe near right lung base unchanged from prior study series 3, image 220. Chronic emphysematous changes are again seen. No new pulmonary nodule is seen. No pleural effusion or pneumothorax. Central and peripheral airway is patent. Mediastinum: Heart size is normal. No pericardial effusion. No mediastinal adenopathy by size criteria. Thoracic aorta and central pulmonary arteries are normal in size. Esophagus is normal in caliber. No hiatal hernia. Bones and chest wall: No suspicious bony lesions. No vertebral body compression fractures. Degenerative disc disease throughout thoracic spine is seen. No axillary or supraclavicular adenopathy by size criteria. Thyroid gland is within normal limits. Abdomen: Visualized upper abdomen solid organs and bowel loops appear normal in the absence of contrast. IMPRESSION: 1. Stable 4 mm right middle lobe and right lower lobe nodules. No new pulmonary nodule is seen. Additional follow-up in 12 months is recommended. 2. Mild centrilobular emphysema. No pleural effusion or pneumothorax. Airway is patent. 3. No mediastinal or hilar lymphadenopathy. Fleischner Society criteria for SOLID lung nodule followup. Nodule size (mm)Low-risk patientHigh-risk patient<6 (single or multiple)No routine followup.Optional CT at 12 months. 6-8 (single or multiple)CT at 6-12 months, then optional CT at 18-24 mo.CT at 6-12 months, then CT at 18-24 months. >8 (single)CT at 3 months, PET-CT, or biopsy. Same as for low-risk pts. >8 (multiple)CT at 3-6 months, then optional CT at 18-24 mo.CT at 3-6 months, then CT at 18-24 months. Fleischner Society criteria for SUB-SOLID lung nodule followup. Solitary pure ground-glass nodules<6 mm (ground glass or part solid)No followup needed. 6 mm or larger (ground glass)CT at 6-12 months to confirm persistence, then CT every 2 years until 5 years.6 mm or larger (part solid)CT at 3-6 months to confirm persistence, then annual CT until 5 years if unchanged and solid component remains <6 mm. Multiple sub-solid nodules<6 mmCT at 3-6 months, then CT consider at 2 & 4 years for high risk patients. [address] at 3-6 months. Subsequent management based on most suspicious lesions. Recommendations do not apply to lung cancer screening, patients with immunosuppression, or patients with known primary cancer. Dictated by: Kartik Alberto M.D. on 03/27/2022 at 16:10 Approved by: Kartik Alberto M.D. on 03/27/2022 at 16:30
== END ==
PROVIDERS: PCP Family Medicine; Referring Provider Family Medicine; Visit Provider Family Medicine
DX: R91.8 Other nonspecific abnormal finding of lung field (principal); J43.2 Centrilobular emphysema; R00.2 Palpitations; R79.89 Other specified abnormal findings of blood chemistry
CPT/HCPCS: 71250

== ENCOUNTER → 2022-04-10 08:17 | Outpatient (CLI) | payer MEDICARE, OTHER, MEDICAID, SELFPAY ==
[2022-04-10 09:48] LABS: Add Manual Diff / Slide Review NO; Basophils Absolute Auto 0 /uL (0-100); Basophils Percent Auto 0.5 % (0-2); Eosinophils Absolute Auto 0 /uL (0-450); Eosinophils Percent Auto 0.4 % (2-4); Lymphocytes Absolute Auto 2500 /uL (1100-4500); Lymphocytes Percent Auto 33.9 % (25-40); Mean Corpuscular HGB Conc 33.4 % (30-36); Mean Corpuscular Hemoglobin 30.1 PG (26-34); Mean Corpuscular Volume 90.2 fL (80-100); Monocytes Absolute Auto 800 /uL (0-900); Monocytes Percent Auto 10.4 % (3-14); Neutrophils Absolute Auto 4000 /uL (1500-7000); Neutrophils Percent Auto 54.8 % (50-75); Platelet Count 365 X10^3/uL (150-400); Red Blood Cell Count 4.66 X10^6/uL (4.0-5.2); White Blood Cell Count 7.3 X10^3/uL (4.5-11.0)
[2022-04-10 10:12] LABS: Alanine Aminotransferase 11 IU/L (<35); Albumin 4.2 g/dL (3.5-5.0); Albumin Globulin Ratio 1.3 (1.0-2.8); Alkaline Phosphatase 69 U/L (38-126); Aspartate Aminotransferase 19 IU/L (14-36); BUN Creatinine Ratio 9.2 (6-22); Bilirubin Total 0.3 mg/dL (0.2-1.3); Blood Urea Nitrogen 7 mg/dL (7-17); Calcium 9.3 mg/dL (8.4-10.2); Carbon Dioxide 28 mmol/L (22-32); Chloride 103 mmol/L (98-107); Estimated Glomerular Filt Rate > 60 mL/min (>60); Globulin 3.2 g/dL (1.7-4.1); Glucose 96 mg/dL (70-100); HEMOLYSIS < 15 (0-50); Potassium 4.6 mmol/L (3.4-5.1); Sodium 141 mmol/L (137-145); Total Protein 7.4 g/dL (6.3-8.2)
== END ==
PROVIDERS: PCP Family Medicine; Referring Provider Family Medicine; Visit Provider Family Medicine
DX: N39.0 Urinary tract infection, site not specified (principal); R74.8 Abnormal levels of other serum enzymes
CPT/HCPCS: 36415; 80053; 85025

== ENCOUNTER → 2023-01-16 07:05 | Outpatient (CLI) | payer MEDICARE, OTHER, MEDICAID, SELFPAY ==
[2023-01-16 08:44] LABS: Add Manual Diff / Slide Review NO; Basophils Absolute Auto 0 /uL (0-100); Basophils Percent Auto 0.5 % (0-2); Eosinophils Absolute Auto 0 /uL (0-450); Eosinophils Percent Auto 0.1 % (2-4); Hematocrit 41.4 % (36-46); Hemoglobin 13.9 g/dL (12.0-16.0); Lymphocytes Absolute Auto 2100 /uL (1100-4500); Lymphocytes Percent Auto 24.1 % (25-40); Mean Corpuscular HGB Conc 33.6 % (30-36); Mean Corpuscular Hemoglobin 29.7 PG (26-34); Mean Corpuscular Volume 88.3 fL (80-100); Monocytes Absolute Auto 800 /uL (0-900); Monocytes Percent Auto 8.6 % (3-14); Neutrophils Absolute Auto 5900 /uL (1500-7000); Neutrophils Percent Auto 66.7 % (50-75); Platelet Count 288 X10^3/uL (150-400); Red Blood Cell Count 4.69 X10^6/uL (4.0-5.2); White Blood Cell Count 8.8 X10^3/uL (4.5-11.0)
[2023-01-16 10:01] LABS: Alanine Aminotransferase 35 IU/L (<35); Albumin 4.1 g/dL (3.5-5.0); Albumin Globulin Ratio 1.5 (1.0-2.8); Alkaline Phosphatase 81 U/L (38-126); Aspartate Aminotransferase 28 IU/L (14-36); BUN Creatinine Ratio 9.5 (6-22); Bilirubin Total 0.3 mg/dL (0.2-1.3); Blood Urea Nitrogen 8 mg/dL (7-17); Calcium 8.8 mg/dL (8.4-10.2); Carbon Dioxide 26 mmol/L (22-32); Chloride 103 mmol/L (98-107); Estimated Glomerular Filt Rate > 60 mL/min (>60); Globulin 2.8 g/dL (1.7-4.1); Glucose 91 mg/dL (70-100); HEMOLYSIS < 15 (0-50); Potassium 4.2 mmol/L (3.4-5.1); Sodium 136 mmol/L (137-145); Total Protein 6.9 g/dL (6.3-8.2)
[2023-01-16 10:22] LABS: TSH w/ Reflex to FT4 0.89 uIU/mL (0.47-4.68); Thyroid Stimulating Hormone 0.885 uIU/mL (0.47-4.68)
== END ==
PROVIDERS: PCP Family Medicine; Referring Provider Family Medicine; Visit Provider Family Medicine
DX: E03.9 Hypothyroidism, unspecified (principal); K60.3 Anal fistula
CPT/HCPCS: 36415; 80053; 84443; 85025

== ENCOUNTER → 2025-03-23 13:50 | Outpatient (CLI) | payer MEDICARE, MEDICAID, SELFPAY | LOC: WC 13:51 | PROVIDERS: Family Provider Family Medicine; PCP Family Medicine; Referring Provider Student in an Organized Health Care Education/Training Program; Visit Provider Surgery | DX: T81.89XA Other complications of procedures, not elsewhere classified, initial encounter (principal); S31.103A Unspecified open wound of abdominal wall, right lower quadrant without penetration into peritoneal cavity, initial encounter; L98.8 Other specified disorders of the skin and subcutaneous tissue; Z72.0 Tobacco use; F41.9 Anxiety disorder, unspecified | CPT/HCPCS: 11042; 99203 ==

== ENCOUNTER → 2025-03-31 09:01 | Outpatient (CLI) | payer MEDICARE, MEDICAID, SELFPAY | LOC: WC 09:03 | PROVIDERS: Family Provider Family Medicine; PCP Family Medicine; Referring Provider Family Medicine; Visit Provider Surgery | DX: T81.89XA Other complications of procedures, not elsewhere classified, initial encounter (principal); S31.103A Unspecified open wound of abdominal wall, right lower quadrant without penetration into peritoneal cavity, initial encounter; L98.8 Other specified disorders of the skin and subcutaneous tissue; F41.9 Anxiety disorder, unspecified; Z72.0 Tobacco use; Z88.5 Allergy status to narcotic agent | CPT/HCPCS: 11042; 97605 ==

== ENCOUNTER → 2025-04-07 09:17 | Outpatient (CLI) | payer MEDICARE, MEDICAID, SELFPAY | LOC: WC 09:18 | PROVIDERS: Family Provider Family Medicine; PCP Family Medicine; Referring Provider Family Medicine; Visit Provider Surgery | DX: T81.89XA Other complications of procedures, not elsewhere classified, initial encounter (principal); L98.8 Other specified disorders of the skin and subcutaneous tissue; S31.103A Unspecified open wound of abdominal wall, right lower quadrant without penetration into peritoneal cavity, initial encounter | CPT/HCPCS: 11042; 97605 ==

== ENCOUNTER → 2025-04-14 16:19 | Outpatient (CLI) | payer MEDICARE, MEDICAID, SELFPAY | LOC: WC 16:21 | PROVIDERS: Family Provider Family Medicine; PCP Family Medicine; Referring Provider Family Medicine; Visit Provider Surgery | DX: T81.89XA Other complications of procedures, not elsewhere classified, initial encounter (principal); S31.103A Unspecified open wound of abdominal wall, right lower quadrant without penetration into peritoneal cavity, initial encounter | CPT/HCPCS: 11042; 97605 ==

== ENCOUNTER → 2025-04-21 09:26 | Outpatient (CLI) | payer MEDICARE, MEDICAID, SELFPAY | LOC: WC 09:28 | PROVIDERS: Family Provider Family Medicine; PCP Family Medicine; Referring Provider Family Medicine; Visit Provider Surgery | DX: T81.89XA Other complications of procedures, not elsewhere classified, initial encounter (principal); S31.103A Unspecified open wound of abdominal wall, right lower quadrant without penetration into peritoneal cavity, initial encounter; L98.8 Other specified disorders of the skin and subcutaneous tissue; Z72.0 Tobacco use; Z91.190 Patient's noncompliance with other medical treatment and regimen due to financial hardship | CPT/HCPCS: 11042; 99213 ==

== ENCOUNTER → 2025-04-28 11:51 | Outpatient (CLI) | payer MEDICARE, MEDICAID, SELFPAY | LOC: WC 11:53 | PROVIDERS: Family Provider Family Medicine; PCP Family Medicine; Referring Provider Family Medicine; Visit Provider Surgery | DX: S31.105D Unspecified open wound of abdominal wall, periumbilic region without penetration into peritoneal cavity, subsequent encounter (principal) | CPT/HCPCS: 99212; 99213 ==